=== PATIENT | male | born 1975 | race Caucasian/White ===

== ENCOUNTER 2018-12-10 05:08 | Inpatient (IN) | payer OTHER ==
[~2018-12-10] VITALS: Ht 170.2 cm; Wt 90.7 kg
[2018-12-10] MEDS ORDERED: GLIPIZIDE 10 MG PO (05:31)
[2018-12-10] MEDS ORDERED: ATORVASTATIN 40MG TAB (05:31)
[2018-12-10] MEDS ORDERED: SERTRALINE 50 MG PO (05:31)
[2018-12-10] MEDS ORDERED: METFORMIN 500 MG PO (05:31)
--- OUTSIDE RECORDS SUMMARY | 2018-12-10 05:34 | XMS REPORT ---
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 Name Role Phone Migration, Doctor Unavailable Unavailable PROBLEMS Type Condition ICD9-CM Code PVD75-QM Code Onset Dates Condition Status SNOMED Code Problem Seasonal allergic rhinitis, unspecified allergic rhinitis trigger J30.2 Active 550016747 Problem Moderate episode of recurrent major depressive disorder F33.1 Active 476760349 Problem Hyperlipemia E78.5 Active 07131730 Problem Type 2 diabetes mellitus with hyperglycemia E11.65 Active [id number] Problem Type 2 diabetes mellitus without complications E11.9 Active [id number] ALLERGIES No Information ENCOUNTERS Encounter Location Date Diagnosis [facility] [address] [facility] [address] Sep, Sinusitis acute J01.90 [facility] [id number] [place] [address] Apr, Acute non-recurrent maxillary sinusitis J01.00 and Acute nasopharyngitis J00 [facility] [id number] [place] [address] Mar, Type 2 diabetes mellitus without complications E11.9 ; Moderate episode of recurrent major depressive disorder F33.1 and Hyperlipemia E78.5 [facility] [id number] [place] [address] Mar, [facility] [id number] [place] [id number] Feb, [facility] [id number] [place] [address] Jan, [facility] [id number] [place] [address] Jan, Acute non-recurrent pansinusitis J01.40 [facility] [address] [address] Dec, Type 2 diabetes mellitus with hyperglycemia E11.65 [facility] [id number] [place] [address] Jul, Type 2 diabetes mellitus with hyperglycemia E11.65 [facility] [address] [address] Jun, Hyperlipemia E78.5 [facility] [address] [address] October, Strep throat J02.0 and Sore throat J02.9 [facility] [id number] [place] [phone] Aug, [facility] [id number] [place] [address] Jul, Seasonal allergic rhinitis, unspecified allergic rhinitis trigger J30.2 [place] [address] [address] Jun, Type 2 diabetes mellitus without complications E11.9 [place] [id number] [place] [address] May, Type 2 diabetes mellitus with hyperglycemia E11.65 and Hyperlipemia E78.5 [place] [address] [address] Mar, [facility] [address] [address] Mar, [facility] [id number] [place] [address] Feb, Type 2 diabetes mellitus without complications E11.9 [facility] [address] [address] Feb, [facility] [id number] [place] [address] October, Type 2 diabetes mellitus with hyperglycemia E11.65 [facility] [address] [address] Aug, Hyperlipemia E78.5 [facility] [id number] [place] [address] 10 Jul, 2015 Hyperlipemia E78.5 [facility] [id number] [place] [id number] 08 Jul, 2015 Type 2 diabetes mellitus with complication E11.8 and Carpal tunnel syndrome G56.00 [facility] [id number] [place] [address] Jul, [facility] [id number] [place] [address] Jul, [facility] [id number] [place] [address] Feb, [facility] [id number] [place] [address] Nov, [facility] [id number] [place] [address] October, Diabetes mellitus without mention of complication, type II or unspecified type, not stated as uncontrolled 250.00 and Proteinuria 791.0 [facility] [id number] [place] [address] Sep, [facility] [id number] [place] [address] Sep, [facility] [id number] [place] [address] Sep, [facility] [id number] [place] [address] Sep, [facility] [id number] [place] [address] Aug, [facility] [place] [facility] [address] [facility] [id number] [place] [address] Aug, [facility] [place] [facility] [address] [id number] [place] [address] Aug, [facility] [place] [facility] [address] [id number] [place] [address] Aug, [facility] [place] [facility] [address] [id number] [place] [address] Apr, [facility] [place] [facility] [address] [id number] [place] [address] Apr, [facility] [place] [facility] [address] [id number] [place] [address] Mar, [facility] [place] [facility] [address] [id number] [place] [address] Mar, [facility] [place] [facility] [address] [id number] [place] [address] Mar, [facility] [place] [facility] [address] [id number] [place] [address] Mar, [facility] [place] [facility] [address] [id number] [place] [address] Mar, [facility] [place] [facility] [address] [id number] [place] [address] Feb, [facility] [place] [facility] [address] [id number] [place] [address] Feb, 2013 [facility] [place] [facility] [address] [id number] [place] [address] Feb, [facility] [place] [facility] [address] [id number] [place] [address] Feb, [facility] [place] [facility] [address] [id number] [place] [address] Dec, [facility] [place] [facility] [address] [id number] [place] [address] Dec, [facility] [place] [facility] [address] [id number] [place] [address] Dec, [facility] [place] [facility] [address] [id number] [place] [address] Nov, [facility] [place] [facility] [address] [id number] [place] [address] Nov, [facility] [place] [facility] [address] [id number] [place] [address] October, [facility] [place] [facility] [address] [id number] [place] [address] October, [facility] [place] [facility] [address] [id number] [place] [address] Sep, [facility] [place] [facility] [address] [id number] [place] [address] Sep, [facility] [place] [facility] [address] [id number] [place] [address] Sep, [facility] [place] [facility] [address] [id number] [place] [address] Sep, [facility] [place] [facility] [address] [id number] [place] [address] Sep, [facility] [place] [facility] [address] [id number] [place] [address] Aug, [facility] [place] [facility] [address] [id number] [place] [address] Aug, [facility] [place] [facility] [address] [id number] [place] [address] Mar, [facility] [place] [facility] [address] [id number] [place] [address] Mar, [facility] [place] [facility] [address] [id number] [place] [address] Jan, [facility] [place] [facility] [address] [id number] [place] [address] Jan, [facility] [address] [id number] [place] [address] Dec, [facility] [place] [facility] [address] [id number] [place] [address] Dec, [facility] [address] [facility] [id number] [place] [address] Nov, [facility] [place] [facility] [address] [id number] [place] [address] Nov, [facility] [place] [facility] [address] [id number] [place] [address] Nov, [facility] [place] [facility] [address] [id number] [place] [address] Sep, [facility] [address] [id number] [place] [address] Sep, [facility] [place] [facility] [address] [id number] [place] [address] Aug, [facility] [place] [facility] [address] [id number] [place] [address] Aug, [facility] [place] [facility] [address] [facility] [id number] [place] [address] Aug, [facility] [place] [facility] [address] [facility] [id number] [place] [address] Jul, [facility] [place] [facility] [address] [facility] [id number] [place] [address] Jul, [facility] [place] [facility] [address] [id number] [place] [address] May, [facility] [place] [facility] [address] [facility] [id number] [place] [address] May, [facility] [place] [facility] [address] [facility] [id number] [place] [address] Apr, [facility] [place] [facility] [address] [id number] [place] [address] Apr, [facility] [place] [facility] [address] [id number] [place] [address] Mar, [facility] [place] [facility] [address] [id number] [place] [address] Mar, [facility] [place] [facility] [id number] [place] [address], [place] [address] Mar, [facility] [place] [facility] [address] [id number] [place] [address] Mar, [facility] [place] [facility] [address] [id number] [place] [address] Mar, [facility] [place] [facility] [address] [id number] [place] [address] Mar, [facility] [place] [facility] [address] [id number] [place] [address] Mar, [facility] [place] [facility] [address] [id number] [place] [address] Mar, [facility] [place] [facility] [address] [id number] [place] [address] Mar, [facility] [place] [facility] [address] [id number] [place] [address] Mar, [facility] [place] [facility] [address] [id number] [place] [address] Mar, [facility] [place] [facility] [address] [id number] [place] [address] Mar, [facility] [place] [facility] [address] [id number] [place] [address] Mar, [facility] [place] [facility] [address] [id number] [place] [address] 13 Feb, 2012 [facility] [place] [facility] [address] [id number] [place] [address] Feb, [facility] [address] [address] Feb, [facility] [address] [address] Jan, [facility] [address] [address] Jan, [facility] [address] [address] October, [facility] [address] [address] Sep, [facility] [id number] [place] [address] Sep, [facility] [address] [address] Aug, [facility] [address] [address] Jul, [facility] [address] [address] Jul, [facility] [address] [address] Jul, [facility] [address] [address] Jul, [facility] [id number] [address] Jun, [facility] [id number] [address] May, IMMUNIZATIONS No Known Immunizations SOCIAL HISTORY Never Assessed REASON FOR VISIT EMR-[facility] PLAN OF CARE VITAL SIGNS MEDICATIONS No Known Medications RESULTS No Results PROCEDURES No Known procedures INSTRUCTIONS MEDICATIONS ADMINISTERED No Known Medications MEDICAL (GENERAL) HISTORY Type Description Date Medical History Type II DM Medical History Eye exam 10/2014 No retinopathy Medical History diabetes Surgical History No know Surgical history
--- OUTSIDE RECORDS SUMMARY | 2018-12-10 05:34 | XMS REPORT ---
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 Name Role Phone Migration, Doctor Unavailable Unavailable PROBLEMS Type Condition ICD9-CM Code AAB61-PT Code Onset Dates Condition Status SNOMED Code Problem Seasonal allergic rhinitis, unspecified allergic rhinitis trigger J30.2 Active 688206848 Problem Moderate episode of recurrent major depressive disorder F33.1 Active 559609309 Problem Hyperlipemia E78.5 Active 09538829 Problem Type 2 diabetes mellitus with hyperglycemia E11.65 Active 904600696317780 Problem Type 2 diabetes mellitus without complications E11.9 Active [id number] ALLERGIES No Information ENCOUNTERS Encounter Location Date Diagnosis [facility] [address] [address] Sep, Sinusitis acute J01.90 [facility] [id number] [place] [address] Apr, Acute non-recurrent maxillary sinusitis J01.00 and Acute nasopharyngitis J00 [facility] [id number] [place] [address] Mar, Type 2 diabetes mellitus without complications E11.9 ; Moderate episode of recurrent major depressive disorder F33.1 and Hyperlipemia E78.5 [facility] [id number] [place] [address] Mar, [facility] [id number] [place] [address] Feb, [facility] [id number] [place] [address] Jan, [facility] [id number] [place] [address] Jan, Acute non-recurrent pansinusitis J01.40 [facility] [address], [place] [address] Dec, Type 2 diabetes mellitus with hyperglycemia E11.65 [facility] [id number] [place] [address] Jul, Type 2 diabetes mellitus with hyperglycemia E11.65 [facility] [address], [place] [address] Jun, Hyperlipemia E78.5 [facility] [address], [place] [address] October, Strep throat J02.0 and Sore throat J02.9 [facility] [id number] [place] [address] Aug, [facility] [id number] [place] [address] Jul, Seasonal allergic rhinitis, unspecified allergic rhinitis trigger J30.2 [facility] [address], [place] [address] Jun, Type 2 diabetes mellitus without complications E11.9 [facility] [id number] [place] [address] May, Type 2 diabetes mellitus with hyperglycemia E11.65 and Hyperlipemia E78.5 [facility] [address], [place] [address] Mar, [facility] [address], [place] [address] Mar, [facility] [id number] [place] [address] Feb, Type 2 diabetes mellitus without complications E11.9 [facility] [address], [place] [address] Feb, [facility] [id number] [place] [address] October, Type 2 diabetes mellitus with hyperglycemia E11.65 [facility] [address], [place] [address] Aug, Hyperlipemia E78.5 [facility] [id number] [place] [address] 10 Jul, 2015 Hyperlipemia E78.5 [facility] [id number] [place] [address] 08 Jul, 2015 Type 2 diabetes mellitus with complication E11.8 and Carpal tunnel syndrome G56.00 [facility] [id number] [place] [address] Jul, [facility] [id number] [place] [address] Jul, [facility] [id number] [place] [address] Feb, [facility] [id number] [place] [address] Nov, [facility] [id number] [place] [address] October, Diabetes mellitus without mention of complication, type II or unspecified type, not stated as uncontrolled 250.00 and Proteinuria 791.0 [facility] [id number] [place] [address] Sep, [facility] [id number] [place] [address] Sep, [facility] [id number] [place] [address] Sep, [facility] [id number] [place] [address] Sep, [facility] [id number] [place] [address] Aug, [facility] [place] [facility] [address] [facility] [id number] [place] [address] Aug, [facility] [place] [facility] [address] [id number] [place] [address] Aug, [facility] [place] [facility] [address] [id number] [place] [address] Aug, [facility] [place] [facility] [address] [id number] [place] [address] Apr, [facility] [place] [facility] [address] [id number] [place] [address] Apr, [facility] [place] [facility] [address] [id number] [place] [address] Mar, [facility] [place] [facility] [address] [id number] [place] [address] Mar, [facility] [place] [facility] [address] [id number] [place] [address] Mar, [facility] [place] [facility] [address] [id number] [place] [address] Mar, [facility] [place] [facility] [address] [id number] [place] [address] Mar, [facility] [place] [facility] [address] [id number] [place] [address] Feb, [facility] [place] [facility] [address] [id number] [place] [address] Feb, 2013 [facility] [place] [facility] [address] [id number] [place] [address] Feb, [facility] [place] [facility] [address] [id number] [place] [address] Feb, [facility] [place] [facility] [address] [id number] [place] [address] Dec, [facility] [place] [facility] [address] [id number] [place] [address] Dec, [facility] [place] [facility] [address] [id number] [place] [address] Dec, [facility] [place] [facility] [address] [id number] [place] [address] Nov, [facility] [place] [facility] [address] [id number] [place] [address] Nov, [facility] [place] [facility] [address] [id number] [place] [address] October, [facility] [place] [facility] [address] [id number] [place] [address] October, [facility] [place] [facility] [address] [id number] [place] [address] Sep, [facility] [place] [facility] [address] [id number] [place] [address] Sep, [facility] [place] [facility] [address] [id number] [place] [address] Sep, [facility] [place] [facility] [address] [id number] [place] [address] Sep, [facility] [place] [facility] [address] [id number] [place] [address] Sep, [facility] [place] [facility] [address] [id number] [place] [address] Aug, [facility] [place] [facility] [address] [id number] [place] [address] Aug, [facility] [place] [facility] [address] [id number] [place] [address] Mar, [facility] [place] [facility] [address] [id number] [place] [address] Mar, [facility] [place] [facility] [address] [id number] [place] [address] Jan, [facility] [place] [facility] [address] [id number] [place] [address] Jan, [facility] [address] [id number] [place] [address] Dec, [facility] [place] [facility] [address] [id number] [place] [address] Dec, [facility] [address] [facility] [id number] [place] [address] Nov, [facility] [place] [facility] [address] [id number] [place] [address] Nov, [facility] [place] [facility] [address] [id number] [place] [address] Nov, [facility] [place] [facility] [address] [id number] [place] [address] Sep, [facility] [address] [id number] [place] [address] Sep, [facility] [place] [facility] [address] [id number] [place] [address] Aug, [facility] [place] [facility] [address] [id number] [place] [address] Aug, [facility] [place] [facility] [address] [facility] [id number] [place] [address] Aug, [facility] [place] [facility] [address] [facility] [id number] [place] [address] Jul, [facility] [place] [facility] [address] [facility] [id number] [place] [address] Jul, [facility] [place] [facility] [address] [id number] [place] [address] May, [facility] [place] [facility] [address] [facility] [id number] [place] [address] May, [facility] [place] [facility] [address] [facility] [id number] [place] [address] Apr, [facility] [place] [facility] [address] [id number] [place] [address] Apr, [facility] [place] [facility] [address] [id number] [place] [address] Mar, [facility] [place] [facility] [address] [id number] [place] [address] Mar, [facility] [place] [facility] [id number] [place] [address], [place] [address] Mar, [facility] [place] [facility] [address] [id number] [place] [address] Mar, [facility] [place] [facility] [address] [id number] [place] [address] Mar, [facility] [place] [facility] [address] [id number] [place] [address] Mar, [facility] [place] [facility] [address] [id number] [place] [address] Mar, [facility] [place] [facility] [address] [id number] [place] [address] Mar, [facility] [place] [facility] [address] [id number] [place] [address] Mar, [facility] [place] [facility] [address] [id number] [place] [address] Mar, [facility] [place] [facility] [address] [id number], [place] [address] Mar, [facility] [place] [facility] [address] [id number] [place] [address] Mar, [facility] [place] [facility] [address] [id number] [place] [address] Mar, [facility] [place] [facility] [address] [id number], [place] [address] 13 Feb, 2012 [facility] [place] [facility] [id number] [place] [address] Feb, [facility] [id number] [address] Feb, [facility] [address], [place] [address] Jan, [facility] [address], [place] [address] Jan, [facility] [address], [place] [address] October, [facility] [address], [place] [address] Sep, [facility] [address], [place] [address] Sep, [facility] [address], [place] [address] Aug, [facility] [address], [place] [address] Jul, [facility] [address], [place] [address] Jul, [facility] [address], [place] [address] Jul, [facility] [address], [place] [address] Jul, [facility] [id number] [address] Jun, [facility] [id number] [address] May, IMMUNIZATIONS No Known Immunizations SOCIAL HISTORY Never Assessed REASON FOR VISIT EMR[place] [place] CARE VITAL SIGNS MEDICATIONS Medication Instructions Dosage Frequency Start Date End Date Duration Status Lovastatin 40 mg take 1 tablet (40 mg) by oral route once daily with the evening meal Nov, Active Invokana 100 mg take 1 tablet by Oral route before the first meal of the day 1 time per day repository Mar, Active Lamisil 250 mg 1 tablet by Oral route 1 time per day for 30 day(s) Jun, Active Zithromax Z-Kelton 250 mg 2 tablet by Oral route 1 time per day for 1 days then take 1 tab daily on days 2-5 Sep, Active PredniSONE 20 mg 1 tablet by Oral route 2 times per day for 5 day(s) Sep, Active RESULTS No Results PROCEDURES No Known procedures INSTRUCTIONS MEDICATIONS ADMINISTERED No Known Medications MEDICAL (GENERAL) HISTORY Type Description Date Medical History Type II DM Medical History Eye exam 10/2014 No retinopathy Medical History diabetes Surgical History No know Surgical history
--- OUTSIDE RECORDS SUMMARY | 2018-12-10 05:34 | XMS REPORT ---
Author Author Migration, Doctor Organization [facility] Address Unknown Phone Unavailable Care Team Providers [employer] Janitor Name Role Phone Migration, Doctor Unavailable Unavailable PROBLEMS Type Condition ICD9-CM Code HVQ84-QH Code Onset Dates Condition Status SNOMED Code Problem Seasonal allergic rhinitis, unspecified allergic rhinitis trigger J30.2 Active 745622864 Problem Moderate episode of recurrent major depressive disorder F33.1 Active 469198048 Problem Hyperlipemia E78.5 Active 65536477 Problem Type 2 diabetes mellitus with hyperglycemia E11.65 Active [id number] Problem Type 2 diabetes mellitus without complications E11.9 Active [id number] ALLERGIES No Information ENCOUNTERS Encounter Location Date Diagnosis [facility] [address] [address] Apr, Acute non-recurrent maxillary sinusitis J01.00 and Acute nasopharyngitis J00 [facility] [address] [address] Mar, Type 2 diabetes mellitus without complications E11.9 ; Moderate episode of recurrent major depressive disorder F33.1 and Hyperlipemia E78.5 [facility] [id number] [place] [address] Mar, [facility] [address] [address] Feb, [facility] [id number] [place] [address] Jan, [facility] [address] [address] Jan, Acute non-recurrent pansinusitis J01.40 [facility] [id number] [place] [address] Dec, Type 2 diabetes mellitus with hyperglycemia E11.65 [facility] [address] [address] Jul, Type 2 diabetes mellitus with hyperglycemia E11.65 [facility] [id number] [place] [address] Jun, Hyperlipemia E78.5 [facility] [id number] [place] [address] October, Strep throat J02.0 and Sore throat J02.9 [facility] [id number] [place] [address] Aug, [facility] [id number] [place] [address] Jul, Seasonal allergic rhinitis, unspecified allergic rhinitis trigger J30.2 [place] [id number] [place] [address] Jun, Type 2 diabetes mellitus without complications E11.9 [facility] [id number] [place] [address] May, Type 2 diabetes mellitus with hyperglycemia E11.65 and Hyperlipemia E78.5 [facility] [id number] [place] [address] Mar, [facility] [id number] [place] [address] Mar, [facility] [id number] [place] [address] Feb, Type 2 diabetes mellitus without complications E11.9 [place] [id number] [place] [address] Feb, [facility] [id number] [place] [address] October, Type 2 diabetes mellitus with hyperglycemia E11.65 [facility] [id number] [place] [address] 16 Aug, 2015 Hyperlipemia E78.5 [facility] [id number] [place] [address] 10 Jul, 2015 Hyperlipemia E78.5 [facility] [id number] [place] [address] 08 Jul, 2015 Type 2 diabetes mellitus with complication E11.8 and Carpal tunnel syndrome G56.00 [facility] [id number] [place] [address] Jul, [facility] [id number] [place] [address] Jul, [facility] [id number] [place] [address] Feb, [facility] [id number] [place] [address] Nov, [facility] [id number] [place] [address] October, Diabetes mellitus without mention of complication, type II or unspecified type, not stated as uncontrolled 250.00 and Proteinuria 791.0 [facility] [address] [address] Sep, [facility] [address] [address] Sep, [facility] [id number] [place] [address] Sep, [facility] [address] [address] Sep, [facility] [id number] [place] [address] Aug, [facility] [address] [address] Aug, [facility] [id number] [address] Aug, [facility] [place] [facility] [address] [id number] [place] [address] Aug, [facility] [place] [facility] [address] [id number] [place] [address] Apr, [facility] [place] [facility] [address] [id number] [place] [address] Apr, [facility] [place] [facility] [address] [id number] [place] [address] Mar, [facility] [place] [facility] [address] [id number] [place] [address] Mar, [facility] [place] [facility] [address] [id number] [place] [address] Mar, [facility] [place] [facility] [address] [id number] [place] [address] Mar, [facility] [place] [facility] [address] [id number] [place] [address] Mar, [facility] [place] [facility] [address] [id number] [place] [address] Feb, [facility] [place] [facility] [address] [id number] [place] [address] Feb, [facility] [place] [facility] [address] [id number] [place] [address] Feb, [facility] [place] [facility] [address] [id number] [place] [address] Feb, [facility] [place] [facility] [address] [id number] [place] [address] Dec, [facility] [place] [facility] [address] [id number] [place] [address] Dec, [facility] [place] [facility] [address] [id number] [place] [address] Dec, [facility] [place] [facility] [address] [id number] [place] [address] Nov, [facility] [place] [facility] [address] [id number] [place] [address] Nov, [facility] [place] [facility] [address] [id number] [place] [address] October, [facility] [place] [facility] [address] [id number] [place] [address] October, [facility] [place] [facility] [address] [id number] [place] [address] Sep, [facility] [place] [facility] [address] [id number] [place] [address] Sep, [facility] [place] [facility] [address] [id number] [place] [address] Sep, [facility] [place] [facility] [address] [id number] [place] [address] Sep, [facility] [place] [facility] [address] [id number] [place] [address] Sep, [facility] [place] [facility] [address] [id number] [place] [address] Aug, [facility] [place] [facility] [address] [id number] [place] [address] Aug, [facility] [place] [facility] [address] [id number] [address] Mar, [facility] [place] [facility] [address] [id number] [place] [address] Mar, [facility] [place] [facility] [address] [id number] [place] [address] Jan, [facility] [place] [facility] [address] [id number] [address] Jan, [facility] [place] [facility] [address] [id number], [place] [address] Dec, [facility] [address] [id number] [place] [address] Dec, [facility] [address] [id number] [place] [address] Nov, [facility] [address] [id number] [place] [address] Nov, [facility] [address] [id number] [place] [address] Nov, [facility] [address] [id number] [place] [address] Sep, [facility] [address] [id number] [place] [address] Sep, [facility] [address] [id number] [place] [address] Aug, [facility] [address] [id number] [place] [address] Aug, [facility] [address] [id number] [place] [address] Aug, [facility] [address] [id number] [place] [address] Jul, [facility] [address] [id number] [place] [address] Jul, [facility] [place] [facility] [address] [id number] [place] [address] May, [facility] [place] [facility] [address] [id number] [place] [address] May, [facility] [place] [facility] [address] [id number] [place] [address] Apr, [facility] [address] [id number] [place] [address] Apr, [facility] [place] [facility] [address] [id number] [place] [address] Mar, 2011 [facility] [place] [facility] [address] [id number] [place] [address] Mar, 2011 [facility] [place] [facility] [address] [id number] [place] [address] Mar, 2011 [facility] [place] [facility] [address] [id number] [place] [address] Mar, [facility] [place] [facility] [address] [id number] [place] [address] Mar, 2011 [facility] [place] [facility] [address] [id number] [place] [address] Mar, [facility] [place] [facility] [address] [id number] [place] [address] Mar, [facility] [place] [facility] [address] [id number] [place] [address] Mar, [facility] [place] [facility] [address] [id number] [place] [address] Mar, [facility] [place] [facility] [address] [id number] [place] [address] Mar, [facility] [place] [facility] [address] [id number] [place] [address] Mar, [facility] [place] [facility] [address] [id number] [place] [address] Mar, [facility] [place] [facility] [address] [id number] [place] [address] 15 Mar, 2012 [facility] [place] [facility] [address] [id number] [place] [address] 13 Feb, 2012 [facility] [place] [facility] [address] [id number] [place] [address] 06 Sep, 2011 [facility] [place] [facility] [address] [id number] [place] [address] Feb, [facility] [id number] [address] Jan, [facility] [address] [place] [address] Jan, [facility] [address] [place] [address] October, [facility] [address] [place] [address] Sep, [facility] [address] [place] [address] Sep, [facility] [address] [place] [address] Aug, [facility] [address] [place] [address] Jul, [facility] [address] [place] [address] Jul, [facility] [address] [place] [address] Jul, [facility] [address] [place] [address] Jul, [facility] [address] [place] [address] Jun, [facility] [address] [place] [address] May, IMMUNIZATIONS No Known Immunizations SOCIAL HISTORY Never Assessed REASON FOR VISIT EMR-[facility] PLAN OF CARE VITAL SIGNS MEDICATIONS No Known Medications RESULTS No Results PROCEDURES No Known procedures INSTRUCTIONS MEDICATIONS ADMINISTERED No Known Medications MEDICAL (GENERAL) HISTORY Type Description Date Medical History Type II DM Medical History Eye exam 10/2014 No retinopathy Medical History diabetes Surgical History No know Surgical history
--- OUTSIDE RECORDS SUMMARY | 2018-12-10 05:34 | XMS REPORT ---
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 Name Role Phone Migration, Doctor Unavailable Unavailable PROBLEMS Type Condition ICD9-CM Code [id number] Code Onset Dates Condition Status SNOMED Code Problem Seasonal allergic rhinitis, unspecified allergic rhinitis trigger J30.2 Active 119708751 Problem Moderate episode of recurrent major depressive disorder F33.1 Active 361071780 Problem Hyperlipemia E78.5 Active 41508154 Problem Type 2 diabetes mellitus with hyperglycemia E11.65 Active [id number] Problem Type 2 diabetes mellitus without complications E11.9 Active 140055138 ALLERGIES No Information ENCOUNTERS Encounter Location Date Diagnosis [facility] WALK IN [facility] [address] [place] [address] Sep, Sinusitis acute J01.90 [facility] WALK IN [facility] [id number] [place] [address] Apr, Acute non-recurrent maxillary sinusitis J01.00 and Acute nasopharyngitis J00 [facility] [id number] [place] [address] Mar, Type 2 diabetes mellitus without complications E11.9 ; Moderate episode of recurrent major depressive disorder F33.1 and Hyperlipemia E78.5 [facility] [id number] [place] [address] Mar, [facility] [id number] [place] [address] Feb, [facility] [id number] [place] [address] Jan, [facility] IN [facility] [id number] [place] [address] Jan, Acute non-recurrent pansinusitis J01.40 [facility] [address] [address] Dec, Type 2 diabetes mellitus with hyperglycemia E11.65 [facility] [id number] [place] [address] Jul, Type 2 diabetes mellitus with hyperglycemia E11.65 [facility] [address] [address] Jun, Hyperlipemia E78.5 [facility] [id number], [place] [address] October, Strep throat J02.0 and Sore throat J02.9 [facility] [id number] [place] [address] Aug, [facility] WALK IN [facility] [id number] [place] [address] Jul, Seasonal allergic rhinitis, unspecified allergic rhinitis trigger J30.2 [facility] [facility] [id number] [address] Jun, Type 2 diabetes mellitus without complications E11.9 [facility] [id number] [place] [address] May, Type 2 diabetes mellitus with hyperglycemia E11.65 and Hyperlipemia E78.5 [facility] [address] [address] Mar, [facility] [address] [address] Mar, [facility] [id number] [place] [address] Feb, Type 2 diabetes mellitus without complications E11.9 [facility] [address] [address] Feb, [facility] [id number] [place] [address] October, Type 2 diabetes mellitus with hyperglycemia E11.65 [facility] [address] [address] Aug, Hyperlipemia E78.5 [facility] [id number] [place] [address] 10 Jul, 2015 Hyperlipemia E78.5 [facility] [id number] [place] [address] 08 Jul, 2015 Type 2 diabetes mellitus with complication E11.8 and Carpal tunnel syndrome G56.00 [facility] [id number] [place] [address] Jul, [facility] [id number] [place] [address] Jul, [facility] [id number] [place] [address] Feb, [facility] [id number] [place] [address] Nov, [facility] [id number] [place] [address] October, Diabetes mellitus without mention of complication, type II or unspecified type, not stated as uncontrolled 250.00 and Proteinuria 791.0 [facility] [id number] [place] [address] Sep, [facility] [id number] [place] [address] Sep, [facility] [id number] [place] [address] Sep, [facility] [id number] [place] [address] Sep, [facility] [id number] [place] [address] Aug, [facility] [place] [facility] [address] [facility] [id number] [place] [address] Aug, [facility] [place] [facility] [address] [id number] [place] [address] Aug, [facility] [place] [facility] [address] [id number] [place] [address] Aug, [facility] [place] [facility] [address] [id number] [place] [address] Apr, [facility] [place] [facility] [address] [id number] [place] [address] Apr, [facility] [place] [facility] [address] [id number] [place] [address] Mar, [facility] [place] [facility] [address] [id number] [place] [address] Mar, [facility] [place] [facility] [address] [id number] [place] [address] Mar, [facility] [place] [facility] [address] [id number] [place] [address] Mar, [facility] [place] [facility] [address] [id number] [place] [address] Mar, [facility] [place] [facility] [address] [id number] [place] [address] Feb, [facility] [place] [facility] [address] [id number] [place] [address] Feb, 2013 [facility] [place] [facility] [address] [id number] [place] [address] Feb, [facility] [place] [facility] [address] [id number] [place] [address] Feb, [facility] [place] [facility] [address] [id number] [place] [address] Dec, [facility] [place] [facility] [address] [id number] [place] [address] Dec, [facility] [place] [facility] [address] [id number] [place] [address] Dec, [facility] [place] [facility] [address] [id number] [place] [address] Nov, [facility] [place] [facility] [address] [id number] [place] [address] Nov, [facility] [place] [facility] [address] [id number] [place] [address] October, [facility] [place] [facility] [address] [id number] [place] [address] October, [facility] [place] [facility] [address] [id number] [place] [address] Sep, [facility] [place] [facility] [address] [id number] [place] [address] Sep, [facility] [place] [facility] [address] [id number] [place] [address] Sep, [facility] [place] [facility] [address] [id number] [place] [address] Sep, [facility] [place] [facility] [address] [id number] [place] [address] Sep, [facility] [place] [facility] [address] [id number] [place] [address] Aug, [facility] [place] [facility] [address] [id number] [place] [address] Aug, [facility] [place] [facility] [address] [id number] [place] [address] Mar, [facility] [place] [facility] [address] [id number] [place] [address] Mar, [facility] [place] [facility] [address] [id number] [place] [address] Jan, [facility] [place] [facility] [address] [id number] [place] [address] Jan, [facility] [address] [id number] [place] [address] Dec, [facility] [place] [facility] [address] [id number] [place] [address] Dec, [facility] [address] [facility] [id number] [place] [address] Nov, [facility] [place] [facility] [address] [id number] [place] [address] Nov, [facility] [place] [facility] [address] [id number] [place] [address] Nov, [facility] [place] [facility] [address] [id number] [place] [address] Sep, [facility] [address] [id number] [place] [address] Sep, [facility] [place] [facility] [address] [id number] [place] [address] Aug, [facility] [place] [facility] [address] [id number] [place] [address] Aug, [facility] [place] [facility] [address] [facility] [id number] [place] [address] Aug, [facility] [place] [facility] [address] [facility] [id number] [place] [address] Jul, [facility] [place] [facility] [address] [facility] [id number] [place] [address] Jul, [facility] [place] [facility] [address] [id number] [place] [address] May, [facility] [place] [facility] [address] [facility] [id number] [place] [address] May, [facility] [place] [facility] [address] [facility] [id number] [place] [address] Apr, [facility] [place] [facility] [address] [id number] [place] [address] Apr, [facility] [place] [facility] [address] [id number] [place] [address] Mar, [facility] [place] [facility] [address] [id number] [place] [address] Mar, [facility] [place] [facility] [address] [id number] [place] [address], [place] [address] Mar, [facility] [place] [facility] [address] [id number] [place] [address] Mar, [facility] [place] [facility] [address] [id number] [place] [address] Mar, [facility] [place] [facility] [address] [id number] [place] [address] Mar, [facility] [place] [facility] [address] [id number] [place] [address] Mar, [facility] [place] [facility] [address] [id number] [place] [address] Mar, [facility] [place] [facility] [address] [id number] [place] [address] Mar, [facility] [place] [facility] [address] [id number] [place] [address] Mar, [facility] [place] [facility] [address] [id number] [address] Mar, [facility] [place] [facility] [address] [id number] [place] [address] Mar, [facility] [place] [facility] [address] [id number] [place] [address] Mar, [facility] [place] [facility] [address] [id number], [place] [address] 13 Feb, 2012 [facility] [place] [facility] [address] [id number] [place] [address] Feb, [facility] [address], [place] [address] Feb, [facility] [address], [place] [address] Jan, [facility] [address], [place] [address] Jan, [facility] [address], [place] [address] October, [facility] [address], [place] [address] Sep, [facility] [id number] [place] [address] Sep, [facility] [address], [place] [address] Aug, [facility] [address], [place] [address] Jul, [facility] [address], [place] [address] Jul, [facility] [address], [place] [address] Jul, [facility] [address] [place] [address] Jul, [facility] [id number] [address] Jun, [facility] [id number] [address] May, IMMUNIZATIONS No Known Immunizations SOCIAL HISTORY Never Assessed [place]AS[place] [place] VITAL SIGNS MEDICATIONS No Known Medications RESULTS No Results PROCEDURES No Known procedures INSTRUCTIONS MEDICATIONS ADMINISTERED No Known Medications MEDICAL (GENERAL) HISTORY Type Description Date Medical History Type II DM Medical History Eye exam 10/2014 No retinopathy Medical History diabetes Surgical History No know Surgical history
--- OUTSIDE RECORDS SUMMARY | 2018-12-10 05:35 | XMS REPORT ---
Author Author MATT CALERO Organization [facility] Address [address] [place] [address] Care Team Providers Care Pocket Setter Name Role Phone MATT CALERO Unavailable PROBLEMS Type Condition ICD9-CM Code XHD28-NX Code Onset Dates Condition Status SNOMED Code Problem Moderate episode of recurrent major depressive disorder F33.1 Active 870245028 Problem Seasonal allergic rhinitis, unspecified allergic rhinitis trigger J30.2 Active 295383439 Problem Hyperlipemia E78.5 Active 24342391 Problem Type 2 diabetes mellitus without complications E11.9 Active 675662268 Problem Type 2 diabetes mellitus with hyperglycemia E11.65 Active [id number] ALLERGIES No Known Allergies ENCOUNTERS Encounter Location Date Diagnosis [facility] [id number] [place] [address] Apr, Acute non-recurrent maxillary sinusitis J01.00 and Acute nasopharyngitis J00 [facility] [address] [address] Mar, Type 2 diabetes mellitus without complications E11.9 ; Moderate episode of recurrent major depressive disorder F33.[address] [facility] [id number] [place] [address] Mar, [facility] [address] [address] Feb, [place] [address] [address] Jan, [facility] [address] [address] Jan, Acute non-recurrent pansinusitis J01.40 [facility] [address] [address] Dec, Type 2 diabetes mellitus with hyperglycemia E11.65 [facility] [address] [place] [address] Jul, Type 2 diabetes mellitus with hyperglycemia E11.65 [facility] [address] [address] Jun, Hyperlipemia E78.5 [facility] [address], [place] [address] October, Strep throat J02.0 and Sore throat J02.9 [place] [id number] [place] [address] Aug, [facility] [id number] [place] [address] Jul, Seasonal allergic rhinitis, unspecified allergic rhinitis trigger J30.2 [place] [address], [place] [address] Jun, Type 2 diabetes mellitus without complications E11.9 [place] [id number] [place] [address] May, Type 2 diabetes mellitus with hyperglycemia E11.65 and Hyperlipemia E78.5 [place] [address], [place] [address] Mar, [facility] [address], [place] [address] Mar, [facility] [address] [place] [address] Feb, Type 2 diabetes mellitus without complications E11.9 [facility] [address], [place] [address] Feb, [facility] [address] [place] [address] October, Type 2 diabetes mellitus with hyperglycemia E11.65 [facility] [address], [place] [address] Aug, Hyperlipemia E78.5 [facility] [id number] [place] [address] 10 Jul, [address] [facility] [id number] [place] [address] 08 Jul, 2015 Type 2 diabetes mellitus with complication E11.8 and Carpal tunnel syndrome G56.00 [facility] [id number] [place] [address] Jul, [facility] [id number] [place] [address] Jul, [facility] [id number] [place] [address] Feb, [facility] [id number] [place] [address] Nov, [facility] [id number] [place] [address] October, Diabetes mellitus without mention of complication, type II or unspecified type, not stated as uncontrolled 250.[address] [facility] [address] [place] [address] Sep, [facility] [id number] [place] [address] Sep, [facility] [address] [place] [address] Sep, [facility] [id number] [place] [address] Sep, [facility] [address] [place] [address] Aug, [facility] [place] [facility] [address] [facility] [id number] [place] [address] Aug, [facility] [place] [facility] [address] [id number] [place] [address] Aug, [facility] [place] [facility] [address] [id number] [place] [address] Aug, [facility] [place] [facility] [address] [id number] [place] [address] Apr, [facility] [place] [facility] [address] [id number] [place] [address] Apr, [facility] [place] [facility] [address] [id number] [place] [address] Mar, [facility] [place] [facility] [address] [id number] [place] [address] Mar, [facility] [place] [facility] [address] [id number] [place] [address] Mar, [facility] [place] [facility] [address] [id number] [place] [address] Mar, [facility] [place] [facility] [address] [id number] [place] [address] Mar, [facility] [place] [facility] [address] [id number] [place] [address] Feb, [facility] [place] [facility] [address] [id number] [place] [address] Feb, 2013 [facility] [place] [facility] [address] [id number] [place] [address] Feb, [facility] [place] [facility] [address] [id number] [place] [address] Feb, [facility] [place] [facility] [address] [id number] [place] [address] Dec, [facility] [place] [facility] [address] [id number] [place] [address] Dec, [facility] [place] [facility] [address] [id number] [place] [address] Dec, [facility] [place] [facility] [address] [id number] [place] [address] Nov, [facility] [place] [facility] [address] [id number] [place] [address] Nov, [facility] [place] [facility] [address] [id number] [place] [address] October, [facility] [place] [facility] [address] [id number] [place] [address] October, [facility] [place] [facility] [address] [id number] [place] [address] Sep, [facility] [place] [facility] [address] [id number] [place] [address] Sep, [facility] [place] [facility] [address] [id number] [place] [address] Sep, [facility] [place] [facility] [address] [id number] [place] [address] Sep, [facility] [place] [facility] [address] [id number] [place] [address] Sep, [facility] [place] [facility] [address] [id number] [place] [address] Aug, [facility] [place] [facility] [address] [id number] [place] [address] Aug, [facility] [place] [facility] [address] [id number] [place] [address] Mar, [facility] [place] [facility] [address] [id number] [place] [address] Mar, [facility] [place] [facility] [address] [id number] [place] [address] Jan, [facility] [place] [facility] [address] [id number] [place] [address] Jan, [facility] [address] [id number] [place] [address] Dec, [facility] [place] [facility] [address] [id number] [place] [address] Dec, [facility] [address] [facility] [id number] [place] [address] Nov, [facility] [place] [facility] [address] [id number] [place] [address] Nov, [facility] [place] [facility] [address] [id number] [place] [address] Nov, [facility] [place] [facility] [address] [id number] [place] [address] Sep, [facility] [address] [id number] [place] [address] Sep, [facility] [place] [facility] [address] [id number] [place] [address] Aug, [facility] [place] [facility] [address] [id number] [place] [address] Aug, [facility] [place] [facility] [address] [facility] [id number] [place] [address] Aug, [facility] [place] [facility] [address] [facility] [id number] [place] [address] Jul, [facility] [place] [facility] [address] [facility] [id number] [place] [address] Jul, [facility] [place] [facility] [address] [id number] [place] [address] May, [facility] [place] [facility] [address] [facility] [id number] [place] [address] May, [facility] [place] [facility] [address] [facility] [id number] [place] [address] Apr, [facility] [place] [facility] [address] [id number] [place] [address] Apr, [facility] [place] [facility] [address] [id number] [place] [address] Mar, [facility] [place] [facility] [address] [id number] [place] [address] Mar, [facility] [place] [facility] [id number] [place] [address], [place] [address] Mar, [facility] [place] [facility] [address] [id number] [place] [address] Mar, [facility] [place] [facility] [address] [id number] [place] [address] Mar, [facility] [place] [facility] [address] [id number] [place] [address] Mar, [facility] [place] [facility] [address] [id number] [place] [address] Mar, [facility] [place] [facility] [address] [id number] [place] [address] Mar, [facility] [place] [facility] [address] [id number] [place] [address] Mar, [facility] [place] [facility] [address] [id number] [place] [address] Mar, [facility] [place] [facility] [address] [id number], [place] [address] Mar, [facility] [place] [facility] [address] [id number] [place] [address] Mar, [facility] [place] [facility] [address] [id number] [place] [address] Mar, [facility] [place] [facility] [address] [id number], [place] [address] 13 Feb, 2012 [facility] [place] [facility] [id number] [place] [address] Feb, [facility] [address] [address] Feb, [facility] [address] [address] Jan, [facility] [address] [address] Jan, [facility] [id number] [place] [address] October, [facility] [id number] [place] [address] Sep, [facility] [id number] [place] [address] Sep, [facility] [address], [place] [address] Aug, [facility] [address] [place] [address] Jul, [facility] [address], [place] [address] Jul, [facility] [address], [place] [address] Jul, [facility] [address], [place] [address] Jul, [facility] [id number] [address] Jun, [facility] [id number], [place] [address] May, IMMUNIZATIONS No Known Immunizations SOCIAL HISTORY Never Assessed REASON FOR VISIT cough, congestion, headache. been sick for 5 days. [email or web address] PLAN OF CARE Activity Details Follow Up prn Reason: VITAL SIGNS Height 67 in 2018-05-05 Weight 201.4 lbs 2018-05-05 Temperature 98.3 degrees Fahrenheit 2018-05-05 Heart Rate 92 bpm 2018-05-05 Respiratory Rate 20 2018-05-05 BMI 31.54 kg/m2 2018-05-05 Blood pressure systolic 116 mmHg 2018-05-05 Blood pressure diastolic 74 mmHg 2018-05-05 MEDICATIONS Medication Instructions Dosage Frequency Start Date End Date Duration Status Augmentin 875-125 MG Orally every 12 hrs 1 tablet 12h 15 Apr, 2018 14 days Active Tessalon Perles 100 MG Orally Three times a day 1 capsule as needed 8h 15 Apr, 2018 5 days Active Sertraline HCl 50 mg Orally Once a day 1 tablet 24h 25 Mar, 2018 30 day(s) Active Diflucan 200 MG Orally every 72 hours 1 tablet Apr, 3 days Active Atorvastatin Calcium 10 mg Orally Once a day 1 tablet 24h 30 days Active Metformin HCl 500 mg Orally Twice a day 1 tablet with meals 12h 30 days Active GlipiZIDE 10 mg Orally Once a day 1 tablet 24h 30 Active RESULTS No Results PROCEDURES No Known procedures INSTRUCTIONS MEDICATIONS ADMINISTERED No Known Medications MEDICAL (GENERAL) HISTORY Type Description Date Medical History Type II DM Medical History Eye exam 10/2014 No retinopathy Medical History diabetes Surgical History No know Surgical history
--- OUTSIDE RECORDS SUMMARY | 2018-12-10 05:35 | XMS REPORT ---
Author Author RUPERTO RAHMAN Organization [facility] Address [address] [place] [address] Care Team Providers Care Veneer Puller Name Role Phone RUPERTO RAHMAN Unavailable PROBLEMS Type Condition ICD9-CM Code FOD33-LN Code Onset Dates Condition Status SNOMED Code Problem Moderate episode of recurrent major depressive disorder F33.1 Active 204797060 Problem Seasonal allergic rhinitis, unspecified allergic rhinitis trigger J30.2 Active 397639051 Problem Hyperlipemia E78.5 Active 76507841 Problem Type 2 diabetes mellitus without complications E11.9 Active 768465947 Problem Type 2 diabetes mellitus with hyperglycemia E11.65 Active [id number] ALLERGIES No Known Allergies ENCOUNTERS Encounter Location Date Diagnosis [facility] [address] [address] Mar, Type 2 diabetes mellitus without complications E11.9 ; Moderate episode of recurrent major depressive disorder F33.[address] [facility] [id number] [place] [address] Mar, [facility] [id number] [place] [address] Feb, [facility] [address] [address] Jan, [facility] [id number] [place] [address] Jan, Acute non-recurrent pansinusitis J01.40 [facility] [id number] [place] [address] Dec, Type 2 diabetes mellitus with hyperglycemia E11.65 [facility] [address] [address] Jul, Type 2 diabetes mellitus with hyperglycemia E11.65 [facility] [address] [place] [address] Jun, Hyperlipemia E78.5 [facility] [address] [place] [address] October, Strep throat J02.0 and Sore throat J02.9 [facility] [id number] [place] [address] Aug, [facility] [id number] [place] [address] Jul, Seasonal allergic rhinitis, unspecified allergic rhinitis trigger J30.2 [facility] [address] [place] [address] Jun, Type 2 diabetes mellitus without complications E11.9 [facility] [id number] [place] [address] May, Type 2 diabetes mellitus with hyperglycemia E11.[address] [facility] [id number] [place] [address] Mar, [facility] [address] [place] [address] Mar, [facility] [id number] [place] [address] Feb, Type 2 diabetes mellitus without complications E11.9 [facility] [address] [place] [address] Feb, [facility] [id number] [place] [address] October, Type 2 diabetes mellitus with hyperglycemia E11.65 [facility] [address] [place] [address] Aug, Hyperlipemia E78.5 [facility] [id number] [place] [address] 10 Jul, [address] [facility] [address] [address] 08 Jul, 2015 Type 2 diabetes mellitus with complication E11.8 and Carpal tunnel syndrome G56.00 [facility] [id number] [place] [address] Jul, [facility] [id number] [place] [address] Jul, [facility] [address] [address] Feb, [facility] [id number] [place] [address] Nov, [facility] [id number] [place] [address] October, Diabetes mellitus without mention of complication, type II or unspecified type, not stated as uncontrolled 250.[address] [facility] [id number] [place] [address] Sep, [facility] [id number] [place] [address] Sep, [facility] [id number] [place] [address] Sep, [facility] [id number] [place] [address] Sep, [facility] [id number] [place] [address] Aug, [facility] [id number] [place] [address] Aug, [facility] [id number] [place] [address] Aug, [facility] [place] [facility] [address] [id number] [place] [address] Aug, [facility] [place] [facility] [address] [id number] [place] [address] Apr, [facility] [place] [facility] [address] [id number] [place] [address] Apr, [facility] [place] [facility] [address] [id number] [place] [address] Mar, [facility] [place] [facility] [address] [id number] [place] [address] Mar, [facility] [place] [facility] [address] [id number] [place] [address] Mar, [facility] [place] [facility] [address] [id number] [place] [address] Mar, [facility] [place] [facility] [address] [id number] [place] [address] Mar, [facility] [place] [facility] [address] [id number] [place] [address] Feb, [facility] [place] [facility] [address] [id number] [place] [address] Feb, [facility] [place] [facility] [address] [id number] [place] [address] Feb, [facility] [place] [facility] [address] [id number] [place] [address] Feb, [facility] [place] [facility] [address] [id number] [place] [address] Dec, [facility] [place] [facility] [address] [id number] [place] [address] Dec, [facility] [place] [facility] [address] [id number] [place] [address] Dec, [facility] [place] [facility] [address] [id number] [place] [address] Nov, [facility] [place] [facility] [address] [id number] [place] [address] Nov, [facility] [place] [facility] [address] [id number] [place] [address] October, [facility] [place] [facility] [address] [id number] [place] [address] October, [facility] [place] [facility] [address] [id number] [place] [address] Sep, [facility] [place] [facility] [address] [id number] [place] [address] Sep, [facility] [place] [facility] [address] [id number] [place] [address] Sep, [facility] [place] [facility] [address] [id number] [place] [address] Sep, [facility] [place] [facility] [address] [id number] [place] [address] Sep, [facility] [place] [facility] [address] [id number] [place] [address] Aug, [facility] [place] [facility] [address] [id number] [place] [address] Aug, [facility] [place] [facility] [address] [id number], [place] [address] Mar, [facility] [place] [facility] [address] [id number], [place] [address] Mar, [facility] [place] [facility] [address] [id number] [place] [address] Jan, [facility] [place] [facility] [address] [id number] [place] [address] Jan, [facility] [place] [facility] [address] [id number] [place] [address] Dec, [facility] [place] [facility] [address] [id number] [place] [address] Dec, [facility] [address] [id number] [place] [address] Nov, [facility] [place] [facility] [address] [id number] [place] [address] Nov, [facility] [address] [id number] [place] [address] Nov, [facility] [place] [facility] [address] [id number] [place] [address] Sep, [facility] [address] [id number] [place] [address] Sep, [facility] [place] [facility] [address] [facility] [id number] [place] [address] Aug, [facility] [address] [facility] [id number] [place] [address] Aug, [facility] [address] [facility] [id number] [place] [address] Aug, [facility] [place] [facility] [address] [facility] [id number] [place] [address] Jul, [facility] [address] [facility] [id number] [place] [address] Jul, [facility] [address] [facility] [id number] [place] [address] May, [facility] [place] [facility] [address] [facility] [id number] [place] [address] May, [facility] [place] [facility] [address] [id number] [place] [address] Apr, [facility] [place] [facility] [address] [facility] [id number] [place] [address] Apr, [facility] [place] [facility] [address] [facility] [id number] [place] [address] Mar, [facility] [place] [facility] [address] [id number] [place] [address] Mar, [facility] [place] [facility] [address] [id number] [place] [address] Mar, [facility] [place] [facility] [address] [id number] [place] [address] Mar, [facility] [place] [facility] [address] [id number] [place] [address] Mar, [facility] [place] [facility] [address] [id number] [place] [address] Mar, [facility] [place] [facility] [address] [id number] [place] [address] Mar, [facility] [place] [facility] [address] [facility] [id number] [place] [address] Mar, [facility] [place] [facility] [address] [id number], [place] [address] Mar, [facility] [place] [facility] [address] [id number], [place] [address] Mar, [facility] [place] [facility] [address] [facility] [id number], [place] [address] Mar, [facility] [place] [facility] [address] [facility] [id number], [place] [address] Mar, [facility] [place] [facility] [address] [id number], [place] [address] Mar, [facility] [place] [facility] [address] [id number], [place] [address] 13 Feb, 2012 [facility] [place] [facility] [address] [id number], [place] [address] 06 Sep2011 [facility] [place] [facility] [address] [facility] [id number], [place] [address] 04 Sep2011 [facility] [place] [facility] [address] [id number], [place] [address] Jan, [facility] [address] [address] Jan, [facility] [address], [place] [address] October, [facility] [address], [place] [address] Sep, [facility] [id number], [place] [address] Sep, [facility] [address] [place] [address] Aug, [facility] [id number], [place] [address] Jul, [facility] [address] [place] [address] Jul, [facility] [address], [place] [address] Jul, [facility] [address], [place] [address] Jul, [facility] [address], [place] [address] Jun, [facility] [address], [place] [address] May, IMMUNIZATIONS No Known Immunizations SOCIAL HISTORY Never Assessed REASON FOR VISIT Blood sugar concerns-TERESA mcmahan PLAN OF CARE Activity Details Follow Up 4 Weeks Reason:depression VITAL SIGNS Height 67 in 2018-04-14 Weight 199.0 lbs 2018-04-14 Temperature 97.8 degrees Fahrenheit 2018-04-14 Heart Rate 99 bpm 2018-04-14 Respiratory Rate 20 2018-04-14 Oximetry on room air:95 % 2018-04-14 BMI 31.16 kg/m2 2018-04-14 Blood pressure systolic 110 mmHg 2018-04-14 Blood pressure diastolic 70 mmHg 2018-04-14 MEDICATIONS Medication Instructions Dosage Frequency Start Date End Date Duration Status Sertraline HCl 50 mg Orally Once a day 1 tablet 24h 25 Mar, 2018 30 day(s) Active Atorvastatin Calcium 10 mg Orally Once a day 1 tablet 24h 30 days Active Metformin HCl 500 mg Orally Twice a day 1 tablet with meals 12h 30 days Active GlipiZIDE 10 mg Orally Once a day 1 tablet 24h 30 Active RESULTS No Results PROCEDURES Procedure Date Ordered Result Body Site COMPLETE CBC W/AUTO DIFF WBC Apr 14, 2018 GLYCATED HEMOGLOBIN TEST Apr 14, 2018 COMPREHEN METABOLIC PANEL Apr 14, 2018 VENIPUNCT, ROUTINE* Apr 14, 2018 INSTRUCTIONS MEDICATIONS ADMINISTERED No Known Medications MEDICAL (GENERAL) HISTORY Type Description Date Medical History Type II DM Medical History Eye exam 10/2014 No retinopathy Medical History diabetes Surgical History No Surgical history information
--- OUTSIDE RECORDS SUMMARY | 2018-12-10 05:35 | XMS REPORT ---
Author Author CHIVO JOLLY [facility] Address [address] [place] [address] Care Team Providers Care Grinder Operator Automatic Name Role Phone CHIVO JOLLY Unavailable PROBLEMS Type Condition ICD9-CM Code QKS15-NC Code Onset Dates Condition Status SNOMED Code Problem Loss of weight 783.21 Active 181732234 Problem Diabetes mellitus without mention of complication, type II or unspecified type, uncontrolled 250.02 Active 863627403 Problem Acute upper respiratory infections of unspecified site 465.9 Active 74852406 Problem Seasonal allergic rhinitis, unspecified allergic rhinitis trigger J30.2 Active 318419918 Problem Type 2 diabetes mellitus without complications E11.9 Active 747551618 Problem Dermatophytosis of foot 110.4 Active 1922546 Problem Diabetes mellitus without mention of complication, type II or unspecified type, not stated as uncontrolled 250.00 Active 356861687 Problem Type 2 diabetes mellitus with hyperglycemia E11.65 Active 540408894080808 Problem Hyperlipemia E78.5 Active 52519385 Problem Screening examination for pulmonary tuberculosis V74.1 Active 747996556 Problem KINRIX (DTAP/IPV) DX V06.3 Active Problem 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 Active 548112438 Problem MMR DX V06.4 Active Problem POLIO (IPV) DX V04.0 Active 635765424 Problem Proteinuria 791.0 Active 50364257 Problem DTAP TEST V06.1 Active Problem Abdominal pain, left upper quadrant 789.02 Active 281040674 Problem Need for prophylactic vaccination and inoculation, Influenza V04.81 Active 538191870 Problem Dysuria 788.1 Active 88937517 ALLERGIES No Information ENCOUNTERS Encounter Location Date Diagnosis [facility] [address] [facility] [id number] [address] Mar, [facility] [address], [place] [address] Mar, [facility] [id number] [place] [id number] Feb, [facility] [id number] [place] [address] Jan, [facility] [id number] [place] [address] Jan, Acute non-recurrent pansinusitis J01.40 [facility] [id number] [place] [address] Dec, Type 2 diabetes mellitus with hyperglycemia E11.65 [facility] [id number] [place] [address] Jul, Type 2 diabetes mellitus with hyperglycemia E11.65 [place] [id number] [place] [address] Jun, Hyperlipemia E78.5 [facility] [id number] [place] [address] October, Strep throat J02.0 and Sore throat J02.9 [facility] [id number] [place] [address] Aug, [facility] [id number] [place] [address] Jul, Seasonal allergic rhinitis, unspecified allergic rhinitis trigger J30.2 [place] [id number] [place] [address] Jun, Type 2 diabetes mellitus without complications E11.9 [facility] [id number] [place] [address] May, Type 2 diabetes mellitus with hyperglycemia E11.65 and Hyperlipemia E78.5 [place] [id number] [place] [address] Mar, [facility] [address] [address] Mar, [facility] [id number] [place] [address] Feb, Type 2 diabetes mellitus without complications E11.9 [facility] [id number] [place] [address] Feb, [facility] [id number] [place] [address] October, Type 2 diabetes mellitus with hyperglycemia E11.65 [facility] [id number] [place] [address] Aug, Hyperlipemia E78.5 [facility] [id number] [place] [address] Jul, Hyperlipemia E78.5 [facility] [id number] [place] [address] Jul, Type 2 diabetes mellitus with complication E11.8 and Carpal tunnel syndrome G56.00 [facility] [id number] [place] [address] Jul, [facility] [id number] [place] [address] Jul, [facility] [id number] [place] [address] Feb, [facility] [id number] [place] [address] Nov, [facility] [id number] [place] [address] October, Diabetes mellitus without mention of complication, type II or unspecified type, not stated as uncontrolled 250.00 and Proteinuria 791.0 [facility] [id number] [place] [address] Sep, [facility] [place] [facility] [address] [id number] [place] [address] 28 Sep, 2014 [facility] [place] [facility] [address] [id number] [place] [address] 14 Sep, 2014 [facility] [place] [facility] [address] [id number] [place] [address] 13 Sep, 2014 [facility] [place] [facility] [address] [id number] [place] [address] 24 Aug, 2014 [facility] [place] [facility] [address] [id number] [place] [address] 24 Aug, 2014 [facility] [place] [facility] [address] [id number] [place] [address] Aug, [facility] [place] [facility] [address] [id number] [place] [address] Aug, [facility] [place] [facility] [address] [id number] [place] [address] Apr, [facility] [place] [facility] [address] [id number] [place] [address] Apr, [facility] [place] [facility] [address] [id number] [place] [address] Mar, [facility] [place] [facility] [address] [id number] [place] [address] Mar, [facility] [place] [facility] [address] [id number] [place] [address] Mar, [facility] [place] [facility] [address] [id number] [place] [address] Mar, [facility] [place] [facility] [address] [id number] [place] [address] Mar, [facility] [place] [facility] [address] [id number] [place] [address] Feb, [facility] [place] [facility] [address] [id number] [place] [address] Feb, [facility] [place] [facility] [address] [id number] [place] [address] Feb, [facility] [place] [facility] [address] [id number] [place] [address] Feb, [facility] [place] [facility] [address] [id number] [place] [address] Dec, [facility] [place] [facility] [address] [id number] [place] [address] Dec, [facility] [place] [facility] [address] [id number] [place] [address] Dec, [facility] [place] [facility] [address] [id number] [place] [address] Nov, [facility] [place] [facility] [address] [id number] [place] [address] Nov, [facility] [place] [facility] [address] [id number] [place] [address] October, [facility] [place] [facility] [address] [id number] [place] [address] October, [facility] [place] [facility] [address] [id number] [place] [address] Sep, [facility] [place] [facility] [address] [id number] [place] [address] Sep, [facility] [place] [facility] [address] [id number], [place] [address] 08 Sep, 2013 [facility] [place] [facility] [address] [id number] [place] [address] Sep, [facility] [place] [facility] [address] [id number] [place] [address] Sep, [facility] [place] [facility] [address] [id number] [place] [address] Aug, [facility] [place] [facility] [address] [id number] [place] [address] Aug, [facility] [address] [id number] [place] [address] Mar, [facility] [place] [facility] [address] [id number] [place] [address] Mar, [facility] [address] [id number] [place] [address] Jan, [facility] [place] [facility] [address] [id number] [place] [address] Jan, [facility] [place] [facility] [address] [id number] [place] [address] Dec, [facility] [place] [facility] [address] [id number] [place] [address] Dec, [facility] [address] [id number] [place] [address] Nov, [facility] [place] [facility] [address] [id number] [place] [address] Nov, [facility] [place] [facility] [address] [id number] [place] [address] Nov, [facility] [place] [facility] [address] [facility] [id number] [place] [address] Sep, [facility] [place] [facility] [address] [id number] [place] [address] Sep, [facility] [place] [facility] [address] [id number] [place] [address] Aug, [facility] [place] [facility] [address] [id number] [place] [address] Aug, [facility] [place] [facility] [address] [id number] [place] [address] Aug, [facility] [place] [facility] [address] [id number] [place] [address] Jul, [facility] [place] [facility] [address] [id number] [place] [address] Jul, [facility] [place] [facility] [address] [id number] [place] [address] May, [facility] [place] [facility] [address] [id number] [place] [address] May, [facility] [place] [facility] [address] [id number] [place] [address] Apr, [facility] [place] [facility] [address] [id number] [place] [address] Apr, [facility] [place] [facility] [address] [id number] [place] [address] Mar, [facility] [place] [facility] [address] [facility] [id number] [place] [address] Mar, [facility] [place] [facility] [address] [id number] [place] [address] Mar, [facility] [place] [facility] [address] [id number] [place] [address] Mar, [facility] [place] [facility] [address] [facility] [id number], [place] [address] Mar, [facility] [place] [facility] [address] [facility] [id number], [place] [address] Mar, [facility] [place] [facility] [address] [id number], [place] [address] Mar, [facility] [place] [facility] [address] [id number], [place] [address] Mar, [facility] [place] [facility] [address] [id number], [place] [address] Mar, [facility] [place] [facility] [address] [facility] [id number], [place] [address] Mar, [facility] [place] [facility] [address] [id number], [place] [address] Mar, [facility] [address] [id number] [place] [address] 15 Mar, 2012 [facility] [place] [facility] [address] [id number], [place] [address] 15 Mar, 2012 [facility] [place] [facility] [address] [facility] [id number] [place] [address] 13 Feb, 2012 [facility] [place] [facility] [address] [id number] [place] [address] 06 Feb, 2012 [facility] [place] [facility] [address] [id number] [place] [address] 04 Feb, 2012 [facility] [place] [facility] [address] [facility] [id number] [place] [address] 16 Jan, 2012 [facility] [address], [place] [address] Jan, [facility] [place] [facility] [address] [facility] [id number] [place] [address] October, [facility] [id number] [place] [address] Sep, [facility] [place] [facility] [address] [facility] [id number], [place] [address] Sep, [facility] [place] [facility] [address] [facility] [id number], [place] [address] Aug, [facility] [place] [facility] [address] [facility] [id number], [place] [address] Jul, [facility] [place] [facility] [address] [id number] [place] [address] Jul, [facility] [place] [facility] [address] [facility] [id number], [place] [address] Jul, [facility] [place] [facility] [id number] [address] Jul, [facility] [place] [facility] [address] [facility] [id number] [place] [address] Jun, [facility] [address] [facility] [id number], [place] [address] May, IMMUNIZATIONS No Known Immunizations SOCIAL HISTORY Never Assessed REASON FOR VISIT Phone Call PLAN OF CARE VITAL SIGNS MEDICATIONS Unknown Medications RESULTS No Results PROCEDURES No Known procedures INSTRUCTIONS MEDICATIONS ADMINISTERED No Known Medications MEDICAL (GENERAL) HISTORY Type Description Date Medical History Type II DM Medical History Eye exam 10/2014 No retinopathy Medical History diabetes
--- OUTSIDE RECORDS SUMMARY | 2018-12-10 05:36 | XMS REPORT ---
Author Author CHIVO JOLLY [facility] Address [address] [place] [address] Care Team Providers Care Sorting Machine Operator Name Role Phone CHIVO JOLLY Unavailable PROBLEMS Type Condition ICD9-CM Code RBH29-FK Code Onset Dates Condition Status SNOMED Code Problem Loss of weight 783.21 Active 656000779 Problem Diabetes mellitus without mention of complication, type II or unspecified type, uncontrolled 250.02 Active 713848539 Problem Acute upper respiratory infections of unspecified site 465.9 Active 82222356 Problem Seasonal allergic rhinitis, unspecified allergic rhinitis trigger J30.2 Active 160778021 Problem Type 2 diabetes mellitus without complications E11.9 Active 021399997 Problem Dermatophytosis of foot 110.4 Active 8652501 Problem Diabetes mellitus without mention of complication, type II or unspecified type, not stated as uncontrolled 250.00 Active 223811323 Problem Type 2 diabetes mellitus with hyperglycemia E11.65 Active 026828771923846 Problem Hyperlipemia E78.5 Active 52461167 Problem Screening examination for pulmonary tuberculosis V74.1 Active 147516537 Problem KINRIX (DTAP/IPV) DX V06.3 Active Problem 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 [id number] [place] [address] Jan, Acute non-recurrent pansinusitis J01.40 [place] [address] [place] [id number] [place] [address] Dec, Type 2 diabetes mellitus with hyperglycemia E11.65 [place] [address] [place] [id number] [place] [address] Jul, Type 2 diabetes mellitus with hyperglycemia E11.65 [place] [address] [place] [id number] [place] [address] Jun, Hyperlipemia E78.5 [facility] [place] [address] [place] [id number] [place] [address] October, Strep throat J02.0 and Sore throat J02.9 [place] [address] [place] [id number] [place] [address] Aug, [facility] [place] [address] [place] [id number] [place] [address] Jul, Seasonal allergic rhinitis, unspecified allergic rhinitis trigger J30.2 [place] [address] [place] [id number] [place] [address] Jun, Type 2 diabetes mellitus without complications E11.9 [place] [address] [place] [id number] [place] [address] May, Type 2 diabetes mellitus with hyperglycemia E11.65 and Hyperlipemia E78.5 [place] [id number] [place] [address] Mar, [place] [address] [place] [id number] [place] [address] Mar, [place] [address] [place] [id number] [place] [address] Feb, Type 2 diabetes mellitus without complications E11.9 [place] [address] [place] [id number] [place] [address] Feb, [facility] [id number] [place] [address] October, Type 2 diabetes mellitus with hyperglycemia E11.65 [facility] [address] [place] [id number] [place] [address] Aug, Hyperlipemia E78.5 [facility] [address] [place] [id number] [place] [address] Jul, Hyperlipemia E78.5 [facility] [address] [place] [id number] [place] [address] Jul, Type 2 diabetes mellitus with complication E11.8 and Carpal tunnel syndrome G56.00 [facility] [address] [place] [id number] [place] [address] Jul, [facility] [address] [place] [id number] [place] [address] Jul, [facility] [address] [id number] [place] [address] Feb, [facility] [address] [id number] [place] [address] Nov, [facility] [address] [id number] [place] [address] October, Diabetes mellitus without mention of complication, type II or unspecified type, not stated as uncontrolled 250.00 and Proteinuria 791.0 [facility] [address] [address] Sep, [facility] [address] [place] [id number] [place] [address] Sep, [facility] [address] [id number] [place] [address] Sep, [facility] [address] [id number] [place] [address] Sep, [facility] [place] [facility] [address] [id number] [place] [address] Aug, 2014 [facility] [place] [facility] [address] [id number] [place] [address] Aug, 2014 [facility] [place] [facility] [address] [id number] [place] [address] Aug, 2014 [facility] [place] [facility] [address] [id number] [place] [address] Aug, 2014 [facility] [place] [facility] [address] [id number] [place] [address] Apr, [facility] [place] [facility] [address] [id number] [place] [address] Apr, [facility] [place] [facility] [address] [id number] [place] [address] Mar, [facility] [place] [facility] [address] [id number] [place] [address] Mar, [facility] [place] [facility] [address] [id number] [place] [address] Mar, [facility] [place] [facility] [address] [id number] [place] [address] Mar, [facility] [place] [facility] [address] [id number] [place] [address] Mar, [facility] [place] [facility] [address] [id number] [place] [address] Feb, 2013 [facility] [place] [facility] [address] [id number] [place] [address] Feb, 2013 [facility] [place] [facility] [address] [id number] [place] [address] Feb, [facility] [place] [facility] [address] [id number] [place] [address] Feb, [facility] [place] [facility] [address] [id number] [place] [address] Dec, [facility] [place] [facility] [address] [id number] [place] [address] Dec, [facility] [place] [facility] [address] [id number] [place] [address] Dec, [facility] [place] [facility] [address] [id number] [place] [address] Nov, [facility] [place] [facility] [address] [id number] [place] [address] Nov, [facility] [place] [facility] [address] [id number] [place] [address] October, [facility] [place] [facility] [address] [id number] [place] [address] October, [facility] [place] [facility] [address] [id number] [place] [address] Sep, [facility] [place] [facility] [address] [id number] [place] [address] Sep, [facility] [place] [facility] [address] [id number] [place] [address] Sep, [facility] [place] [facility] [address] [id number] [place] [address] Sep, [facility] [place] [facility] [address] [id number] [place] [address] Sep, [facility] [place] [facility] [address] [id number] [place] [address] Aug, [facility] [place] [facility] [address] [id number] [place] [address] Aug, [facility] [place] [facility] [address] [id number] [place] [address] Mar, [facility] [place] [facility] [address] [id number] [place] [address] Mar, [facility] [place] [facility] [address] [id number] [place] [address] Jan, [facility] [address] [id number] [place] [address] Jan, [facility] [address] [id number] [place] [address] Dec, [facility] [address] [id number] [place] [address] Dec, [facility] [place] [facility] [address] [id number] [place] [address] Nov, [facility] [address] [id number] [place] [address] Nov, [facility] [address] [id number] [place] [address] Nov, [facility] [address] [id number] [place] [address] Sep, [facility] [address] [id number] [place] [address] Sep, [facility] [address] [id number] [place] [address] Aug, [facility] [address] [facility] [id number] [place] [address] Aug, [facility] [address] [id number] [place] [address] Aug, [facility] [place] [facility] [address] [id number] [place] [address] Jul, [facility] [place] [facility] [address] [id number] [place] [address] Jul, [facility] [place] [facility] [address] [id number] [place] [address] May, [facility] [place] [facility] [address] [id number] [place] [address] May, [facility] [place] [facility] [address] [id number] [place] [address] Apr, [facility] [place] [facility] [address] [id number] [place] [address] Apr, [facility] [place] [facility] [address] [id number] [place] [address] Mar, [facility] [place] [facility] [address] [id number] [place] [address] Mar, [facility] [place] [facility] [address] [id number] [place] [address] Mar, [facility] [place] [facility] [address] [id number] [place] [address] Mar, [facility] [place] [facility] [address] [id number] [place] [address] Mar, [facility] [place] [facility] [address] [id number] [address] Mar, [facility] [place] [facility] [address] [id number] [place] [address] Mar, [facility] [place] [facility] [address] [id number] [place] [address] Mar, [facility] [place] [facility] [address] [facility] [id number] [place] [address] Mar, [facility] [place] [facility] [address] [id number] [place] [address] Mar, [facility] [place] [facility] [address] [id number] [place] [address] Mar, [facility] [place] [facility] [address] [id number] [place] [address] Mar, [facility] [place] [facility] [address] [id number] [place] [address] Mar, [facility] [place] [facility] [address] [id number] [place] [address] 13 Feb, 2012 [facility] [address] [address] 06 Feb, 2012 [facility] [address] [address] Feb, [facility] [address] [address] Jan, [facility] [address] [address] Jan, [facility] [id number] [place] [address] October, [facility] [id number] [place] [address] Sep, [facility] [id number] [place] [address] Sep, [facility] [address] [address] Aug, [facility] [address] [address] Jul, [facility] [address] [address] Jul, [facility] [address] [address] Jul, [facility] [address] [place] [id number] [address] Jul, [facility] [address] [address] Jun, [facility] [address] [address] May, IMMUNIZATIONS No Known Immunizations SOCIAL HISTORY Never Assessed REASON FOR VISIT Refill request PLAN OF CARE VITAL SIGNS MEDICATIONS Medication Instructions Dosage Frequency Start Date End Date Duration Status GlipiZIDE 5 MG Orally twice a day 2 tablet 12h 45 days Active Pioglitazone HCl 45 MG Orally Once a day 1 tablet 24h Jul, 45 days Active Metformin HCl 500 MG Orally twice a day 2 tablet 12h 45 days Active RESULTS No Results PROCEDURES No Known procedures INSTRUCTIONS MEDICATIONS ADMINISTERED No Known Medications MEDICAL (GENERAL) HISTORY Type Description Date Medical History diabetes
--- OUTSIDE RECORDS SUMMARY | 2018-12-10 05:36 | XMS REPORT ---
Author Author MANAV Patel [facility] [place] Address [address] [place] [address] Care Team Providers Care Flight Data Technician Name Role Phone MANAV Patel Unavailable PROBLEMS Type Condition ICD9-CM Code MXA79-UL Code Onset Dates Condition Status SNOMED Code Problem Loss of weight 783.21 Active 670405878 Problem Diabetes mellitus without mention of complication, type II or unspecified type, uncontrolled 250.02 Active 336326768 Problem Acute upper respiratory infections of unspecified site 465.9 Active 28232807 Problem Seasonal allergic rhinitis, unspecified allergic rhinitis trigger J30.2 Active 810547629 Problem Type 2 diabetes mellitus without complications E11.9 Active 864893789 Problem Dermatophytosis of foot 110.4 Active 9953460 Problem Diabetes mellitus without mention of complication, type II or unspecified type, not stated as uncontrolled 250.00 Active 016183668 Problem Type 2 diabetes mellitus with hyperglycemia E11.65 Active 247016464642245 Problem Hyperlipemia E78.5 Active 53416326 Problem Screening examination for pulmonary tuberculosis V74.1 Active 425904338 Problem KINRIX (DTAP/IPV) DX V06.3 Active Problem 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 Active 955731890 Problem MMR DX V06.4 Active Problem POLIO (IPV) DX V04.0 Active 956927363 Problem Proteinuria 791.0 Active 10491062 Problem DTAP TEST V06.1 Active Problem Abdominal pain, left upper quadrant 789.02 Active 336516048 Problem Need for prophylactic vaccination and inoculation, Influenza V04.81 Active 407094524 Problem Dysuria 788.1 Active 70802768 ALLERGIES No Known Allergies ENCOUNTERS Encounter Location Date Diagnosis [facility] [address] [facility] [id number] [address] Jan, [facility] [address] [address] Jan, Acute non-recurrent pansinusitis J01.40 [facility] [id number] [place] [address] Dec, Type 2 diabetes mellitus with hyperglycemia E11.65 [facility] [id number] [place] [address] Jul, Type 2 diabetes mellitus with hyperglycemia E11.65 [facility] [id number] [place] [address] Jun, Hyperlipemia E78.5 [facility] IN [facility] [id number] [place] [address] October, Strep throat J02.0 and Sore throat J02.9 [place] [id number] [place] [address] Aug, [facility] IN [facility] [id number] [place] [address] Jul, Seasonal allergic rhinitis, unspecified allergic rhinitis trigger J30.2 [place] [id number] [place] [address] Jun, Type 2 diabetes mellitus without complications E11.9 [place] [id number] [place] [address] May, Type 2 diabetes mellitus with hyperglycemia E11.65 and Hyperlipemia E78.5 [place] [address] [place] [address] Mar, [place] [id number] [place] [address] Mar, [place] [id number] [place] [address] Feb, Type 2 diabetes mellitus without complications E11.9 [place] [id number] [place] [address] Feb, [facility] [id number] [place] [address] October, Type 2 diabetes mellitus with hyperglycemia E11.65 [facility] [id number] [place] [address] Aug, Hyperlipemia E78.5 [facility] [id number] [place] [address] Jul, Hyperlipemia E78.5 [facility] [id number] [place] [address] Jul, Type 2 diabetes mellitus with complication E11.8 and Carpal tunnel syndrome G56.00 [facility] [id number] [place] [address] Jul, [facility] [id number] [place] [address] Jul, [facility] [id number] [place] [address] Feb, [facility] [id number] [place] [address] Nov, [facility] [id number] [place] [address] October, Diabetes mellitus without mention of complication, type II or unspecified type, not stated as uncontrolled 250.00 and Proteinuria 791.0 [facility] [address] [address] Sep, [facility] [id number] [place] [address] Sep, [facility] [address] [address] Sep, [facility] [id number] [place] [address] Sep, [facility] [place] [facility] [address] [id number] [place] [address] Aug, [facility] [place] [facility] [address] [id number] [place] [address] Aug, [facility] [place] [facility] [address] [id number] [place] [address] Aug, [facility] [place] [facility] [address] [id number] [place] [address] Aug, [facility] [place] [facility] [address] [id number] [place] [address] Apr, [facility] [place] [facility] [address] [id number] [place] [address] Apr, [facility] [place] [facility] [address] [id number] [place] [address] Mar, [facility] [place] [facility] [address] [id number] [place] [address] Mar, [facility] [place] [facility] [address] [id number] [place] [address] Mar, [facility] [place] [facility] [address] [id number] [place] [address] Mar, [facility] [place] [facility] [address] [id number] [place] [address] Mar, [facility] [place] [facility] [address] [id number] [place] [address] Feb, 2013 [facility] [place] [facility] [address] [id number] [place] [address] Feb, [facility] [place] [facility] [address] [id number] [place] [address] Feb, [facility] [place] [facility] [address] [id number] [place] [address] Feb, [facility] [place] [facility] [address] [id number] [place] [address] Dec, [facility] [place] [facility] [address] [id number] [place] [address] Dec, [facility] [place] [facility] [address] [id number] [place] [address] Dec, [facility] [place] [facility] [address] [id number] [place] [address] Nov, [facility] [place] [facility] [address] [id number] [place] [address] Nov, [facility] [place] [facility] [address] [id number] [place] [address] October, [facility] [place] [facility] [address] [id number] [place] [address] October, [facility] [place] [facility] [address] [id number] [place] [address] Sep, [facility] [place] [facility] [address] [id number] [place] [address] Sep, [facility] [place] [facility] [address] [id number] [place] [address] Sep, [facility] [place] [facility] [address] [id number] [place] [address] Sep, [facility] [place] [facility] [address] [id number] [place] [address] Sep, [facility] [place] [facility] [address] [id number] [place] [address] Aug, [facility] [place] [facility] [address] [id number] [place] [address] Aug, [facility] [place] [facility] [address] [id number] [place] [address] Mar, [facility] [place] [facility] [address] [id number] [place] [address] Mar, [facility] [place] [facility] [address] [id number] [place] [address] Jan, [facility] [address] [id number] [place] [address] Jan, [facility] [place] [facility] [address] [id number] [place] [address] Dec, [facility] [place] [facility] [address] [id number] [place] [address] Dec, [facility] [place] [facility] [address] [id number] [place] [address] Nov, [facility] [place] [facility] [address] [id number] [place] [address] Nov, [facility] [place] [facility] [address] [id number] [place] [address] Nov, [facility] [place] [facility] [address] [id number] [place] [address] Sep, [facility] [address] [id number] [place] [address] Sep, [facility] [place] [facility] [address] [id number] [place] [address] Aug, [facility] [place] [facility] [address] [id number] [place] [address] Aug, [facility] [place] [facility] [address] [id number] [place] [address] Aug, [facility] [place] [facility] [address] [id number] [place] [address] Jul, [facility] [place] [facility] [address] [id number] [place] [address] Jul, [facility] [place] [facility] [address] [id number] [place] [address] May, [facility] [place] [facility] [address] [id number] [place] [address] May, [facility] [place] [facility] [address] [id number] [place] [address] Apr, [facility] [place] [facility] [address] [id number] [place] [address] Apr, [facility] [place] [facility] [address] [facility] [id number] [place] [address] Mar, [facility] [place] [facility] [address] [id number] [place] [address] Mar, [facility] [place] [facility] [address] [id number] [place] [address] Mar, [facility] [place] [facility] [address] [id number] [place] [address] Mar, [facility] [place] [facility] [address] [id number] [place] [address] Mar, [facility] [place] [facility] [address] [id number] [place] [address] Mar, [facility] [place] [facility] [address] [id number] [place] [address] Mar, [facility] [place] [facility] [address] [facility] [id number] [place] [address] Mar, [facility] [place] [facility] [address] [id number] [place] [address] Mar, [facility] [place] [facility] [address] [id number] [place] [address] Mar, [facility] [place] [facility] [address] [id number] [place] [address] Mar, [facility] [place] [facility] [address] [facility] [id number] [place] [address] Mar, [facility] [place] [facility] [address] [facility] [id number] [place] [address] Mar, [facility] [place] [facility] [address] [address] 13 Feb, 2012 [facility] [address] [address] 06 Feb, 2012 [facility] [id number] [address] 04 Feb, 2012 [facility] [address] [address] 16 Jan, 2012 [facility] [id number] [address] Jan, [facility] [address] [address] October, [facility] [address] [address] Sep, [facility] [address] [address] Sep, [facility] [address] [address] Aug, [facility] [address] [address] Jul, [facility] [address] [address] Jul, [facility] [id number] [address] Jul, [facility] [id number] [address] Jul, [facility] [id number] [address] Jun, [facility] [id number] [address] May, IMMUNIZATIONS No Known Immunizations SOCIAL HISTORY Never Assessed REASON FOR VISIT cough, congestion for 2 weeks. went to an urgent care in [place] et was on pred nisone PO X 5 days. has completed that treatment. [email or web address] PLAN OF CARE Activity Details Follow Up prn Reason: VITAL SIGNS Height 67 in 2018-01-24 Weight 207.4 lbs 2018-01-24 Temperature 98.3 degrees Fahrenheit 2018-01-24 Heart Rate 88 bpm 2018-01-24 Respiratory Rate 20 2018-01-24 BMI 32.48 kg/m2 2018-01-24 Blood pressure systolic 126 mmHg 2018-01-24 Blood pressure diastolic 76 mmHg 2018-01-24 MEDICATIONS Medication Instructions Dosage Frequency Start Date End Date Duration Status Zyrtec Allergy 10 MG Orally Once a day 1 tablet 24h Jan, Feb, 30 day(s) Active Atorvastatin Calcium 10 MG Orally Once a day 1 tablet 24h Active Flonase Allergy Relief 50 MCG/ACT Nasally Once a day 1 spray in each nostril 24h Jan, 30 day(s) Active Augmentin 875-125 MG Orally every 12 hrs 1 tablet 12h Jan, Jan, 10 day(s) Active GlipiZIDE 10 MG Orally Once a day 1 tablet 24h Active Metformin HCl 500 MG Orally Twice a day 1 tablet with meals 12h Active RESULTS No Results PROCEDURES No Known procedures INSTRUCTIONS MEDICATIONS ADMINISTERED No Known Medications MEDICAL (GENERAL) HISTORY Type Description Date Medical History Type II DM Medical History Eye exam 10/2014 No retinopathy Medical History diabetes
--- OUTSIDE RECORDS SUMMARY | 2018-12-10 05:36 | XMS REPORT ---
Author Author DOMINICK REEVES [facility] Address [address] [place] [address] Care Team Providers Care Senior [employer] Et[employer] Developer Name Role Phone DOMINICK REEVES Unavailable PROBLEMS Type Condition ICD9-CM Code YNF99-BJ Code Onset Dates Condition Status SNOMED Code Problem Loss of weight 783.21 Active 956182848 Problem Diabetes mellitus without mention of complication, type II or unspecified type, uncontrolled 250.02 Active 120018990 Problem Acute upper respiratory infections of unspecified site 465.9 Active 44220488 Problem Seasonal allergic rhinitis, unspecified allergic rhinitis trigger J30.2 Active 050469154 Problem Type 2 diabetes mellitus without complications E11.9 Active 487968027 Problem Dermatophytosis of foot 110.4 Active 7705960 Problem Diabetes mellitus without mention of complication, type II or unspecified type, not stated as uncontrolled 250.00 Active 628062579 Problem Type 2 diabetes mellitus with hyperglycemia E11.65 Active 128108328401814 Problem Hyperlipemia E78.5 Active 62907800 Problem Screening examination for pulmonary tuberculosis V74.1 Active 410572001 Problem KINRIX (DTAP/IPV) DX V06.3 Active Problem 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 [id number] [address] 17 Feb, 2018 [facility] [id number] [address] Jan, [facility] [address] [address] Jan, Acute non-recurrent pansinusitis J01.40 [facility] [id number] [place] [address] Dec, Type 2 diabetes mellitus with hyperglycemia E11.65 [facility] [id number] [place] [address] Jul, Type 2 diabetes mellitus with hyperglycemia E11.65 [place] [id number] [place] [address] Jun, Hyperlipemia E78.5 [facility] [id number] [place] [address] October, Strep throat J02.0 and Sore throat J02.9 [place] [id number] [place] [address] Aug, [facility] [id number] [place] [address] Jul, Seasonal allergic rhinitis, unspecified allergic rhinitis trigger J30.2 [place] [address] [place] [address] Jun, Type 2 diabetes mellitus without complications E11.9 [place] [address] [address] May, Type 2 diabetes mellitus with hyperglycemia E11.65 and Hyperlipemia E78.5 [place] [id number] [place] [address] Mar, [place] [id number] [place] [address] Mar, [place] [address], [place] [address] Feb, Type 2 diabetes mellitus without complications E11.9 [facility] [address], [place] [address] Feb, [facility] [id number] [place] [address] October, Type 2 diabetes mellitus with hyperglycemia E11.65 [facility] [id number] [place] [address] Aug, Hyperlipemia E78.5 [facility] [id number] [place] [address] Jul, Hyperlipemia E78.5 [facility] [id number] [place] [address] Jul, Type 2 diabetes mellitus with complication E11.8 and Carpal tunnel syndrome G56.00 [facility] [id number] [place] [address] Jul, [facility] [id number] [place] [address] Jul, [facility] [id number] [place] [address] Feb, [facility] [id number] [place] [address] Nov, [facility] [id number] [place] [address] October, Diabetes mellitus without mention of complication, type II or unspecified type, not stated as uncontrolled 250.00 and Proteinuria 791.0 [facility] [address], [place] [address] Sep, [facility] [id number] [place] [address] Sep, [facility] [address] [address] Sep, [facility] [id number] [place] [address] Sep, [facility] [place] [facility] [address] [id number] [place] [address] Aug, [facility] [place] [facility] [address] [id number] [place] [address] Aug, [facility] [place] [facility] [address] [id number] [place] [address] Aug, [facility] [place] [facility] [address] [id number] [place] [address] Aug, [facility] [place] [facility] [address] [id number] [place] [address] Apr, [facility] [place] [facility] [address] [id number] [place] [address] Apr, [facility] [place] [facility] [address] [id number] [place] [address] Mar, [facility] [place] [facility] [address] [id number] [place] [address] Mar, [facility] [place] [facility] [address] [id number] [place] [address] Mar, [facility] [place] [facility] [address] [id number] [place] [address] Mar, [facility] [place] [facility] [address] [id number] [place] [address] Mar, [facility] [place] [facility] [address] [id number] [place] [address] Feb, 2013 [facility] [place] [facility] [address] [id number] [place] [address] Feb, 2013 [facility] [place] [facility] [address] [id number] [place] [address] Feb, 2013 [facility] [place] [facility] [address] [id number] [place] [address] Feb, [facility] [place] [facility] [address] [id number] [place] [address] Dec, [facility] [place] [facility] [address] [id number] [place] [address] Dec, [facility] [place] [facility] [address] [id number] [place] [address] Dec, [facility] [place] [facility] [address] [id number] [place] [address] Nov, [facility] [place] [facility] [address] [id number] [place] [address] Nov, [facility] [place] [facility] [address] [id number] [place] [address] October, [facility] [place] [facility] [address] [id number] [place] [address] October, [facility] [place] [facility] [address] [id number] [place] [address] Sep, [facility] [place] [facility] [address] [id number] [place] [address] Sep, [facility] [place] [facility] [address] [id number] [place] [address] Sep, [facility] [place] [facility] [address] [id number] [place] [address] Sep, [facility] [place] [facility] [address] [id number] [place] [address] Sep, [facility] [place] [facility] [address] [id number] [place] [address] Aug, [facility] [place] [facility] [address] [id number] [place] [address] Aug, [facility] [place] [facility] [address] [id number] [place] [address] Mar, [facility] [place] [facility] [address] [id number], [place] [address] Mar, [facility] [address] [id number] [place] [address] Jan, [facility] [place] [facility] [address] [id number] [place] [address] Jan, [facility] [address] [facility] [id number] [place] [address] Dec, [facility] [place] [facility] [address] [id number] [place] [address] Dec, [facility] [address] [id number] [place] [address] Nov, [facility] [address] [facility] [id number] [place] [address] Nov, [facility] [address] [facility] [id number] [place] [address] Nov, [facility] [place] [facility] [address] [facility] [id number] [place] [address] Sep, [facility] [address] [facility] [id number] [place] [address] Sep, [facility] [place] [facility] [address] [facility] [id number] [place] [address] Aug, [facility] [address] [facility] [id number], [place] [address] Aug, [facility] [place] [facility] [address] [facility] [id number], [place] [address] Aug, [facility] [place] [facility] [address] [facility] [id number] [place] [address] Jul, [facility] [place] [facility] [address] [facility] [id number], [place] [address] Jul, [facility] [place] [facility] [address] [facility] [id number] [place] [address] May, [facility] [place] [facility] [address] [id number] [place] [address] May, [facility] [place] [facility] [address] [id number] [place] [address] Apr, [facility] [place] [facility] [address] [id number] [place] [address] Apr, [facility] [place] [facility] [address] [id number] [place] [address] Mar, [facility] [place] [facility] [address] [id number] [place] [address] Mar, [facility] [place] [facility] [address] [id number] [place] [address] Mar, [facility] [place] [facility] [address] [id number] [place] [address] Mar, [facility] [place] [facility] [address] [id number] [place] [address] Mar, [facility] [place] [facility] [address] [id number] [place] [address] Mar, [facility] [place] [facility] [address] [id number] [place] [address] Mar, [facility] [place] [facility] [address] [id number] [place] [address] Mar, [facility] [place] [facility] [address] [id number] [place] [address] Mar, [facility] [place] [facility] [address] [id number] [place] [address] Mar, [facility] [place] [facility] [address] [id number] [place] [address] Mar, [facility] [place] [facility] [address] [id number] [place] [address] Mar, [facility] [place] [facility] [address] [id number] [place] [address] 15 Mar, 2012 [facility] [address] [facility] [id number] [place] [address] 13 Feb, 2012 [facility] [address] [facility] [id number] [place] [address] 06 Feb, 2012 [facility] [id number] [place] [address] 04 Feb, 2012 [facility] [address] [facility] [id number], [place] [address] 16 Jan, 2012 [facility] [address] [facility] [id number] [place] [address] Jan, [facility] [address] [place] [address] October, [facility] [address] [place] [address] Sep, [facility] [address], [place] [address] Sep, [facility] [address] [address] Aug, [facility] [address] [place] [address] Jul, [facility] [address], [place] [address] Jul, [facility] [address] [place] [address] Jul, [facility] [id number] [address] Jul, [facility] [address] [place] [address] Jun, [facility] [id number] [address] May, IMMUNIZATIONS No Known Immunizations SOCIAL HISTORY Never Assessed REASON FOR VISIT Requests return call PLAN OF CARE VITAL SIGNS MEDICATIONS Medication Instructions Dosage Frequency Start Date End Date Duration Status Metformin HCl 500 mg Orally Twice a day 1 tablet with meals 12h 30 days Active RESULTS No Results PROCEDURES No Known procedures INSTRUCTIONS MEDICATIONS ADMINISTERED No Known Medications MEDICAL (GENERAL) HISTORY Type Description Date Medical History Type II DM Medical History Eye exam 10/2014 No retinopathy Medical History diabetes
--- OUTSIDE RECORDS SUMMARY | 2018-12-10 05:36 | XMS REPORT ---
Author Author CHIVO JOLLY [facility] Address [address] [place] [address] Care Team Providers Care Developer Evangelist Name Role Phone CHIVO JOLLY Unavailable PROBLEMS Type Condition ICD9-CM Code WMY45-IP Code Onset Dates Condition Status SNOMED Code Problem Loss of weight 783.21 Active 367383346 Problem Diabetes mellitus without mention of complication, type II or unspecified type, uncontrolled 250.02 Active 198161899 Problem Acute upper respiratory infections of unspecified site 465.9 Active 09921736 Problem Seasonal allergic rhinitis, unspecified allergic rhinitis trigger J30.2 Active 330100834 Problem Type 2 diabetes mellitus without complications E11.9 Active 211090154 Problem Dermatophytosis of foot 110.4 Active 9282325 Problem Diabetes mellitus without mention of complication, type II or unspecified type, not stated as uncontrolled 250.00 Active 819913901 Problem Type 2 diabetes mellitus with hyperglycemia E11.65 Active 528401199431046 Problem Hyperlipemia E78.5 Active 97569697 Problem Screening examination for pulmonary tuberculosis V74.1 Active 083721012 Problem KINRIX (DTAP/IPV) DX V06.3 Active Problem 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 Active 597606746 Problem MMR DX V06.4 Active Problem POLIO (IPV) DX V04.0 Active 201063317 Problem Proteinuria 791.0 Active 51774372 Problem DTAP TEST V06.1 Active Problem Abdominal pain, left upper quadrant 789.02 Active 980437577 Problem Need for prophylactic vaccination and inoculation, Influenza V04.81 Active 156449238 Problem Dysuria 788.1 Active 41303086 ALLERGIES No Information ENCOUNTERS Encounter Location Date Diagnosis [facility] [address] [facility] [id number] [address] Jan, [facility] [address] [place] [address] Jan, Acute non-recurrent pansinusitis J01.40 [place] [id number] [place] [address] Dec, Type 2 diabetes mellitus with hyperglycemia E11.65 [place] [address] [place] [address] Jul, Type 2 diabetes mellitus with hyperglycemia E11.65 [place] [address] [place] [address] Jun, Hyperlipemia E78.5 [facility] [place] [address] [place] [address] October, Strep throat J02.0 and Sore throat J02.9 [place] [address] [place] [address] Aug, [facility] [place] [address] [place] [address] Jul, Seasonal allergic rhinitis, unspecified allergic rhinitis trigger J30.2 [place] [address] [place] [address] Jun, Type 2 diabetes mellitus without complications E11.9 [place] [address] [place] [address] May, Type 2 diabetes mellitus with hyperglycemia E11.65 and Hyperlipemia E78.5 [place] [address] [place] [address] Mar, [place] [id number] [place] [address] Mar, [place] [address] [place] [address] Feb, Type 2 diabetes mellitus without complications E11.9 [place] [address] [place] [address] Feb, [facility] [address] [place] [address] October, Type 2 diabetes mellitus with hyperglycemia E11.65 [facility] [id number] [place] [address] Aug, Hyperlipemia E78.5 [facility] [id number] [place] [address] Jul, Hyperlipemia E78.5 [facility] [address] [place] [address] Jul, Type 2 diabetes mellitus with complication E11.8 and Carpal tunnel syndrome G56.00 [facility] [id number] [place] [address] Jul, [facility] [address] [place] [address] Jul, [facility] [id number] [place] [address] Feb, [facility] [id number] [place] [address] Nov, [facility] [address] [place] [address] October, Diabetes mellitus without mention of complication, type II or unspecified type, not stated as uncontrolled 250.00 and Proteinuria 791.0 [facility] [address] [address] Sep, [facility] [id number] [place] [address] Sep, [facility] [id number] [place] [address] Sep, [facility] [id number] [place] [address] Sep, [facility] [place] [facility] [address] [id number] [place] [address] Aug, 2014 [facility] [place] [facility] [address] [id number] [place] [address] Aug, 2014 [facility] [place] [facility] [address] [id number] [place] [address] Aug, 2014 [facility] [place] [facility] [address] [id number] [place] [address] Aug, 2014 [facility] [place] [facility] [address] [id number] [place] [address] Apr, [facility] [place] [facility] [address] [id number] [place] [address] Apr, [facility] [place] [facility] [address] [id number] [place] [address] Mar, [facility] [place] [facility] [address] [id number] [place] [address] Mar, [facility] [place] [facility] [address] [id number] [place] [address] Mar, [facility] [place] [facility] [address] [id number] [place] [address] Mar, [facility] [place] [facility] [address] [id number] [place] [address] Mar, [facility] [place] [facility] [address] [id number] [place] [address] Feb, 2013 [facility] [place] [facility] [address] [id number] [place] [address] Feb, 2013 [facility] [place] [facility] [address] [id number] [place] [address] Feb, [facility] [place] [facility] [address] [id number] [place] [address] Feb, [facility] [place] [facility] [address] [id number] [place] [address] Dec, [facility] [place] [facility] [address] [id number] [place] [address] Dec, [facility] [place] [facility] [address] [id number] [place] [address] Dec, [facility] [place] [facility] [address] [id number] [place] [address] Nov, [facility] [place] [facility] [address] [id number] [place] [address] Nov, [facility] [place] [facility] [address] [id number] [place] [address] October, [facility] [place] [facility] [address] [id number] [place] [address] October, [facility] [place] [facility] [address] [id number] [place] [address] Sep, [facility] [place] [facility] [address] [id number] [place] [address] Sep, [facility] [place] [facility] [address] [id number] [place] [address] Sep, [facility] [place] [facility] [address] [id number] [place] [address] Sep, [facility] [place] [facility] [address] [id number] [place] [address] Sep, [facility] [place] [facility] [address] [id number] [place] [address] Aug, [facility] [place] [facility] [address] [id number] [place] [address] Aug, [facility] [place] [facility] [address] [id number] [place] [address] Mar, [facility] [place] [facility] [address] [id number] [place] [address] Mar, [facility] [place] [facility] [address] [id number] [place] [address] Jan, [facility] [address] [id number] [place] [address] Jan, [facility] [address] [id number] [place] [address] Dec, [facility] [address] [id number] [place] [address] Dec, [facility] [place] [facility] [address] [id number] [place] [address] Nov, [facility] [address] [id number] [place] [address] Nov, [facility] [address] [id number] [place] [address] Nov, [facility] [address] [id number] [place] [address] Sep, [facility] [address] [id number] [place] [address] Sep, [facility] [address] [id number] [place] [address] Aug, [facility] [address] [facility] [id number] [place] [address] Aug, [facility] [address] [id number] [place] [address] Aug, [facility] [place] [facility] [address] [id number] [place] [address] Jul, [facility] [place] [facility] [address] [id number] [place] [address] Jul, [facility] [place] [facility] [address] [id number] [place] [address] May, [facility] [place] [facility] [address] [id number] [place] [address] May, [facility] [place] [facility] [address] [id number] [place] [address] Apr, [facility] [place] [facility] [address] [id number] [place] [address] Apr, [facility] [place] [facility] [address] [id number] [place] [address] Mar, [facility] [place] [facility] [address] [id number] [place] [address] Mar, [facility] [place] [facility] [address] [id number] [place] [address] Mar, [facility] [place] [facility] [address] [id number] [place] [address] Mar, [facility] [place] [facility] [address] [id number] [place] [address] Mar, [facility] [place] [facility] [address] [id number], [place] [address] Mar, [facility] [place] [facility] [address] [id number], [place] [address] Mar, [facility] [place] [facility] [address] [id number], [place] [address] Mar, [facility] [place] [facility] [address] [facility] [id number], [place] [address] Mar, [facility] [place] [facility] [address] [id number], [place] [address] Mar, [facility] [place] [facility] [address] [id number], [place] [address] Mar, [facility] [place] [facility] [address] [id number], [place] [address] Mar, [facility] [place] [facility] [address] [id number], [place] [address] Mar, [facility] [place] [facility] [address] [id number], [place] [address] 13 Feb, 2012 [facility] [address] [address] 06 Feb, 2012 [facility] [address] [address] Feb, [facility] [address] [address] Jan, [facility] [address] [address] Jan, [facility] [address] [place] [address] October, [facility] [address] [place] [address] Sep, [facility] [address] [place] [address] Sep, [facility] [address] [address] Aug, [facility] [address] [place] [address] Jul, [facility] [address] [address] Jul, [facility] [address] [address] Jul, [facility] [address] [address] Jul, [facility] [address] [address] Jun, [facility] [address] [address] May, IMMUNIZATIONS No Known Immunizations SOCIAL HISTORY Never Assessed REASON FOR VISIT Waiting for call back PLAN OF CARE VITAL SIGNS MEDICATIONS Unknown Medications RESULTS No Results PROCEDURES No Known procedures INSTRUCTIONS MEDICATIONS ADMINISTERED No Known Medications MEDICAL (GENERAL) HISTORY Type Description Date Medical History Type II DM Medical History Eye exam 10/2014 No retinopathy Medical History diabetes
--- OUTSIDE RECORDS SUMMARY | 2018-12-10 05:37 | XMS REPORT ---
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 Active Problem Diabetes mellitus without mention of complication, type II or unspecified type, not stated as uncontrolled 250.00 Active Problem DTAP TEST V06.1 Active Problem KINRIX (DTAP/IPV) DX V06.3 Active Problem Loss of weight 783.21 Active Problem Dysuria 788.1 Active Problem Dermatophytosis of foot 110.4 Active Problem Acute upper respiratory infections of unspecified site 465.9 Active Problem Diabetes mellitus without mention of complication, type II or unspecified type, uncontrolled 250.02 Active Medications No Known Medications Results No Known Results Summary Purpose eClinicalWorks Submission
--- OUTSIDE RECORDS SUMMARY | 2018-12-10 05:37 | XMS REPORT ---
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 Active 928997013 Problem DTAP TEST V06.1 Active Problem KINRIX (DTAP/IPV) DX V06.3 Active Problem Type 2 diabetes mellitus without complications E11.9 Active 886547115 Problem Type 2 diabetes mellitus with hyperglycemia E11.65 Active 329739424750187 Problem Screening examination for pulmonary tuberculosis V74.1 Active 558929427 Problem POLIO (IPV) DX V04.0 Active 945851316 Problem Hyperlipemia E78.5 Active 97902959 Problem MMR DX V06.4 Active Problem Loss of weight 783.21 Active 879049110 Problem Dysuria 788.1 Active 38993149 Assessment Type 2 diabetes mellitus without complications E11.9 Feb, Active 556138777 Problem Acute upper respiratory infections of unspecified site 465.9 Active 47116314 Problem Abdominal pain, left upper quadrant 789.02 Active 817663894 Problem Proteinuria 791.0 Active 19649477 Problem Dermatophytosis of foot 110.4 Active 7320840 Problem Need for prophylactic vaccination and inoculation, Influenza V04.81 Active 075073682 Problem Diabetes mellitus without mention of complication, type II or unspecified type, uncontrolled 250.02 Active 897263293 Problem Diabetes mellitus without mention of complication, type II or unspecified type, not stated as uncontrolled 250.00 Active 820785326 ALLERGIES Substance Reaction Event Type Date Status N.K.D.A. Unknown Non Drug Allergy Feb, Unknown SOCIAL HISTORY No smoking Hx information available PLAN OF CARE VITAL SIGNS Height 67 in 2016-02-20 Weight 204 lbs 2016-02-20 Heart Rate 80 bpm 2016-02-20 Respiratory Rate 16 2016-02-20 BMI 31.95 kg/m2 2016-02-20 Blood pressure systolic 115 mmHg 2016-02-20 Blood pressure diastolic 82 mmHg 2016-02-20 MEDICATIONS Medication Instructions Dosage Frequency Start Date End Date Duration Status Xigduo XR 10-1000 MG Orally Once a day 1 tablet 24h October, 30 day(s) Active GlipiZIDE 5MG Orally twice a day 2 tablet 12h Active Lipitor 40 MG Orally Once a day 1 tablet 24h Jul, 90 Active Metformin HCl 500MG Orally Once a day 2 tablet 24h Active RESULTS Name Result Date Reference Range A1C (IN HOUSE) 2016-02-20 A1C IN HOUSE 7.2 4.3 - 5.6 % Previous A1c 6.6 Lot [id number] Exp date 11/2015 PROCEDURES Procedure Date Ordered Related Diagnosis Body Site GLYCATED HEMOGLOBIN TEST Feb 20, 2016 Office Visit, Est Pt., Level 3 Feb 20, 2016 IMMUNIZATIONS No Known Immunizations
--- OUTSIDE RECORDS SUMMARY | 2018-12-10 05:37 | XMS REPORT ---
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 Active Problem Type 2 diabetes mellitus with hyperglycemia E11.65 Active Problem Hyperlipemia E78.5 Active Problem Type 2 diabetes mellitus without complications E11.9 Active Problem POLIO (IPV) DX V04.0 Active Problem DTAP TEST V06.1 Active Problem MMR DX V06.4 Active Problem Screening examination for pulmonary tuberculosis V74.1 Active Problem Acute upper respiratory infections of unspecified site 465.9 Active Problem Loss of weight 783.21 Active Problem Diabetes mellitus without mention of complication, type II or unspecified type, uncontrolled 250.02 Active Problem Abdominal pain, left upper quadrant 789.02 Active Problem Dysuria 788.1 Active Problem Proteinuria 791.0 Active Problem Dermatophytosis of foot 110.4 Active Problem Need for prophylactic vaccination and inoculation, Influenza V04.81 Active Medications Medication Code System Code Instructions Start Date End Date Status Dosage GlipiZIDE [facility] [address]-28 5MG Orally twice a day 2 tablet Metformin HCl [facility] [address]-96 500MG Orally Once a day 2 tablet Lipitor [facility] [address]-73 40 MG Orally Once a day Jul 31, 2015 1 tablet Xigduo XR [facility] [address]-96 10-1000 MG Orally Once a day 2015 Jul 05, 2016 1 tablet Results No Known Results Summary Purpose eClinicalWorks Submission
--- OUTSIDE RECORDS SUMMARY | 2018-12-10 05:37 | XMS REPORT ---
Author Author CHIVO JOLLY Organization [employer] Address Unknown Phone Unavailable Care Team Providers Care Court Operations Clerk Name Role Phone CHIVO JOLLY CP Unavailable [...] vaccination and inoculation, Influenza V04.81 Active Medications No Known Medications Results No Known Results Summary Purpose eClinicalWorks Submission
--- OUTSIDE RECORDS SUMMARY | 2018-12-10 05:37 | XMS REPORT ---
Author Author CHIVO JOLLY [facility] eClinical[employer] Address Unknown Phone Unavailable Care Team Providers Care Petroleum Analyst Name Role Phone CHIVO JOLLY CP Unavailable Allergies, Adverse Reactions, Alerts Substance Reaction Event Type N.K.D.A. Info Not Available Non Drug Allergy Problems Problem Type Condition Code Onset Dates [...] Active Problem KINRIX (DTAP/IPV) DX V06.3 Active Assessment Carpal tunnel syndrome G56.00 Active Problem Loss of weight 783.21 Active Problem Dysuria 788.1 Active Assessment Type 2 diabetes mellitus with complication E11.8 Active Problem Dermatophytosis of foot 110.4 Active Problem Acute upper respiratory infections of unspecified site 465.9 Active Problem Diabetes mellitus without mention of complication, type II or unspecified type, uncontrolled 250.02 Active Medications Medication Code System Code Instructions Start Date End Date Status Dosage Metformin HCl [facility] [address]-67 500 MG Orally Twice a day 1 tablet with meals GlipiZIDE [facility] 43566021379 5MG TAKE TWO TABLETS BY MOUTH TWICE DAILY. Procedures Procedure Coding System Code Date LIPID PANEL CPT-4 13630 Jul 29, 2015 GLYCATED HEMOGLOBIN TEST CPT-4 07233 Jul 29, 2015 COMPREHEN METABOLIC PANEL CPT-4 72773 Jul 29, 2015 MICROALBUMIN, QUANTITATIVE CPT-4 99826 Jul 29, 2015 Office Visit, Est Pt., Level 3 CPT-4 22056 Jul 29, 2015 MICROALBUMIN, SEMIQUANT CPT-4 04422 Jul 29, 2015 ASSAY OF URINE CREATININE CPT-4 64188 Jul 29, 2015 VENIPUNCT, ROUTINE* [facility]-4 79696 Jul 29, 2015 Vital Signs Date/Time: Jul 29, 2015 Temperature 98.3 F Weight 206.8 lbs Height 67 in BMI 32.39 Index Blood Pressure Diastolic 82 mmHg Blood Pressure Systolic 134 mmHg Cardiac Monitoring Heart Rate 84 bpm Results Name Result Date Reference Range Unit Abnormality Flag MICROALBUMIN, URINE (IN HOUSE) ----Lot # [id number] ----Control abnormal 20150730 ----Exp date 20150730 ----Clarity clear 20150730 ----Color yellow 20150730 ----ALB 150 mg/L 20150730 ----CRE 300 mg/dL 20150730 ----A:C (IN HOUSE) 30-300 mg/g 20150730 ----Control normal 20150730 ----MICROALBUMIN Abnormal 20150730 ----Exp date Mar 201620150730 ----Lot # [id number] MICROALBUMIN/CREATININE RATIO, URINE ----Creatinine, Urine 61.8 46876378 24.0-392.0 mg/dL ----Microalb/Creat Ratio 298.5 34886013 0.0-30.0 mg/g creat H ----Microalbumin, Urine 184.5 [id number] 0.0-17.0 ug/mL H ROUTINE VENIPUNCTURE A1C (IN HOUSE) ----Exp date 20150730 ----Previous A1c 8.2 20150730 ----Lot [id number] 20150730 ----A1C IN HOUSE 6.6 20150730 4.3 - 5.6 % LIPID PANEL ----HDL Cholesterol 37 20150729 >39 mg/dL L ----Triglycerides 431 01994102 0-149 mg/dL H ----Cholesterol, Total 256 21690655 100-199 mg/dL H CMP ----Creatinine, Serum 0.98 15818516 0.76-1.27 mg/dL ----BUN 19 27016277 6-20 mg/dL ----eGFR If Africn Am 113 95510991 >59 mL/min/1.73 ----eGFR If NonAfricn Am 98 59542417 >59 mL/min/1.73 ----Sodium, Serum 139 13313551 134-144 mmol/L ----BUN/Creatinine Ratio 19 20150729 8-19 ----Chloride, Serum 100 66061484 97-108 mmol/L ----Potassium, Serum 4.4 46116810 3.5-5.2 mmol/L ----Carbon Dioxide, Total 23 46686174 18-29 mmol/L ----Protein, Total, Serum 7.0 85286250 6.0-8.5 g/dL ----Calcium, Serum 9.9 62149053 8.7-10.2 mg/dL ----Globulin, Total 2.5 87784190 1.5-4.5 g/dL ----Albumin, Serum 4.5 38453220 3.5-5.5 g/dL ----Bilirubin, Total <0.2 71772027 0.0-1.2 mg/dL ----Glucose, Serum 179 92432205 65-99 mg/dL H ----A/G Ratio 1.8 81949852 1.1-2.5 ----ALT (SGPT) 21 96313821 0-44 IU/L ----Alkaline Phosphatase, S 63 24068082 39-117 IU/L ----AST (SGOT) 15 56546611 0-40 IU/L Summary Purpose eClinicalWorks Submission
--- OUTSIDE RECORDS SUMMARY | 2018-12-10 05:37 | XMS REPORT ---
Author Author CHIVO JOLLY Organization [employer] Address Unknown Phone Unavailable Care Team Providers Care Migratory Farm Hand Name Role Phone CHIVO JOLLY CP Unavailable [...] Start Date End Date Status Dosage GlipiZIDE [facility] 70824468928 5MG TAKE TWO TABLETS BY MOUTH TWICE DAILY. Results No Known Results Summary Purpose eClinicalWorks Submission
--- OUTSIDE RECORDS SUMMARY | 2018-12-10 05:37 | XMS REPORT ---
Author Author CHIVO JOLLY [facility] eClinicalWorks Address Unknown Phone Unavailable Care Team Providers Care Perishable Fruit Inspector Name Role Phone CHIVO JOLLY CP Unavailable [...] Instructions Start Date End Date Status Dosage Xigduo XR [facility] [address]-49 10-1000 MG Orally Once a day 2015 1 tablet Results No Known Results Summary Purpose eClinicalWorks Submission
--- OUTSIDE RECORDS SUMMARY | 2018-12-10 05:37 | XMS REPORT ---
Author Author CHIVO JOLLY Organization [facility] Address [address] [place] [address] Care Team Providers Care Front End Architect Name Role Phone CHIVO JOLLY Unavailable PROBLEMS Type Condition ICD9-CM Code MAD88-AX Code Onset Dates Condition Status SNOMED Code Problem Loss of weight 783.21 Active 880025357 Problem Diabetes mellitus without mention of complication, type II or unspecified type, uncontrolled 250.02 Active 530124675 Problem Acute upper respiratory infections of unspecified site 465.9 Active 05693984 Problem Seasonal allergic rhinitis, unspecified allergic rhinitis trigger J30.2 Active 529899092 Problem Type 2 diabetes mellitus without complications E11.9 Active 112191191 Problem Dermatophytosis of foot 110.4 Active 0280154 Problem Diabetes mellitus without mention of complication, type II or unspecified type, not stated as uncontrolled 250.00 Active 263986954 Problem Type 2 diabetes mellitus with hyperglycemia E11.65 Active 559509893575069 Problem Hyperlipemia E78.5 Active 16618163 Problem Screening examination for pulmonary tuberculosis V74.1 Active 864018196 Problem KINRIX (DTAP/IPV) DX V06.3 Active Problem 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 Active 355284182 Problem MMR DX V06.4 Active Problem POLIO (IPV) DX V04.0 Active 722612670 Problem Proteinuria 791.0 Active 17148287 Problem DTAP TEST V06.1 Active Problem Abdominal pain, left upper quadrant 789.02 Active 833242505 Problem Need for prophylactic vaccination and inoculation, Influenza V04.81 Active 694473103 Problem Dysuria 788.1 Active 39519397 ALLERGIES No Known Allergies ENCOUNTERS Encounter Location Date Diagnosis [facility] [address] [facility] [id number] [address] Jul, Type 2 diabetes mellitus with hyperglycemia E11.65 [facility] [address] [address] Jun, Hyperlipemia E78.5 [facility] [id number] [place] [address] Aug, [facility] [address] [address] Jul, Seasonal allergic rhinitis, unspecified allergic rhinitis trigger J30.2 [facility] [address] [place] [address] Jun, Type 2 diabetes mellitus without complications E11.9 [facility] [id number] [place] [address] May, Type 2 diabetes mellitus with hyperglycemia E11.65 and Hyperlipemia E78.5 [facility] [id number] [place] [address] Mar, [facility] [address] [place] [address] Mar, [facility] [id number] [place] [address] Feb, Type 2 diabetes mellitus without complications E11.9 [facility] [address] [place] [address] Feb, [facility] [id number] [place] [address] October, Type 2 diabetes mellitus with hyperglycemia E11.65 [facility] [address] [address] Aug, Hyperlipemia E78.5 [facility] [address] [place] [address] 10 Jul, 2015 Hyperlipemia E78.5 [facility] [address] [address] 08 Jul, 2015 Type 2 diabetes mellitus with complication E11.8 and Carpal tunnel syndrome G56.00 [facility] [id number] [address] Jul, [facility] [id number] [place] [address] Jul, [facility] [id number] [place] [address] Feb, [facility] [id number] [place] [address] Nov, [facility] [id number] [place] [address] October, Diabetes mellitus without mention of complication, type II or unspecified type, not stated as uncontrolled 250.00 and Proteinuria 791.0 [facility] [id number] [place] [address] Sep, [facility] [id number] [place] [address] Sep, [facility] [id number] [place] [address] Sep, [facility] [id number] [place] [address] Sep, [facility] [address] [address] Aug, [facility] [id number] [address] Aug, [facility] [address] [address] Aug, [facility] [id number] [address] Aug, [facility] [address] [address] Apr, [facility] [id number] [place] [address] Apr, [facility] [place] [facility] [address] [id number] [place] [address] Mar, [facility] [place] [facility] [address] [id number] [place] [address] Mar, [facility] [place] [facility] [address] [id number] [place] [address] Mar, [facility] [place] [facility] [address] [id number] [place] [address] Mar, [facility] [place] [facility] [address] [id number] [place] [address] Mar, [facility] [place] [facility] [address] [id number] [place] [address] Feb, [facility] [place] [facility] [address] [id number] [place] [address] Feb, [facility] [place] [facility] [address] [id number] [place] [address] Feb, [facility] [place] [facility] [address] [id number] [place] [address] Feb, [facility] [place] [facility] [address] [id number] [place] [address] Dec, [facility] [place] [facility] [address] [id number] [place] [address] Dec, [facility] [place] [facility] [address] [id number] [place] [address] Dec, [facility] [place] [facility] [address] [id number] [place] [address] Nov, [facility] [place] [facility] [address] [id number] [place] [address] Nov, [facility] [place] [facility] [address] [id number] [place] [address] October, [facility] [place] [facility] [address] [id number] [place] [address] October, [facility] [place] [facility] [address] [id number] [place] [address] Sep, [facility] [place] [facility] [address] [id number] [place] [address] Sep, [facility] [place] [facility] [address] [id number] [place] [address] Sep, [facility] [place] [facility] [address] [id number] [place] [address] Sep, [facility] [place] [facility] [address] [id number] [place] [address] Sep, [facility] [place] [facility] [address] [id number] [place] [address] Aug, [facility] [place] [facility] [address] [id number] [place] [address] Aug, [facility] [place] [facility] [address] [id number] [place] [address] Mar, [facility] [place] [facility] [address] [id number] [place] [address] Mar, [facility] [place] [facility] [address] [id number] [place] [address] Jan, [facility] [place] [facility] [address] [id number] [place] [address] Jan, [facility] [place] [facility] [address] [id number] [place] [address] Dec, [facility] [place] [facility] [address] [id number] [place] [address] Dec, [facility] [place] [facility] [address] [id number] [place] [address] Nov, [facility] [place] [facility] [address] [id number] [place] [address] 17 Nov, 2012 [facility] [address] [id number] [place] [address] 13 Nov, 2012 [facility] [place] [facility] [address] [id number] [place] [address] 25 Sep, 2012 [facility] [place] [facility] [address] [id number] [place] [address] Sep, [facility] [place] [facility] [address] [id number] [place] [address] Aug, [facility] [place] [facility] [address] [id number] [place] [address] Aug, [facility] [place] [facility] [address] [id number] [place] [address] Aug, [facility] [place] [facility] [id number] [place] [address] Jul, [facility] [place] [facility] [address] [id number] [place] [address] Jul, [facility] [place] [facility] [address] [place] [address] May, [facility] [place] [facility] [address] [facility] [id number] [place] [address] May, [facility] [place] [facility] [address] [facility] [id number] [place] [address] Apr, [facility] [place] [facility] [address] [id number] [address] Apr, [facility] [place] [facility] [address] [id number] [place] [address] Mar, [facility] [place] [facility] [address] [id number] [place] [address] Mar, [facility] [place] [facility] [address] [facility] [id number] [address] Mar, [facility] [place] [facility] [address] [id number] [place] [address] Mar, [facility] [place] [facility] [address] [id number] [place] [address] Mar, [facility] [place] [facility] [address] [id number] [place] [address] Mar, [facility] [place] [facility] [address] [id number] [place] [address] Mar, [facility] [place] [facility] [address] [id number] [place] [address] Mar, [facility] [place] [facility] [address] [id number] [place] [address] Mar, [facility] [place] [facility] [address] [id number] [place] [address] Mar, [facility] [place] [facility] [address] [id number] [place] [address] Mar, [facility] [place] [facility] [address] [id number] [place] [address] Mar, [facility] [place] [facility] [address] [id number] [place] [address] Mar, [facility] [place] [facility] [address] [id number] [place] [address] 13 Feb, 2012 [facility] [place] [facility] [address] [id number] [place] [address] 06 Feb, 2012 [facility] [place] [facility] [address] [id number] [place] [address] 04 Feb, 2012 [facility] [place] [facility] [address] [id number] [place] [address] 16 Jan, 2012 [facility] [place] [facility] [address] [id number] [place] [address] 13 Jan, 2012 [facility] [place] [facility] [address] [id number] [address] October, [facility] [id number] [address] Sep, [facility] [address] [address] Sep, [facility] [address] [address] Aug, [facility] [address] [address] Jul, [facility] [address] [address] Jul, [facility] [id number] [place] [address] Jul, [facility] [address] [address] Jul, [facility] [address] [address] Jun, [facility] [address] [address] May, IMMUNIZATIONS No Known Immunizations SOCIAL HISTORY Never Assessed REASON FOR VISIT Diabetes- Chad Ta RN PLAN OF CARE Activity Details Follow Up 3 Months Reason:DM VITAL SIGNS Height 67 in 2017-08-18 Weight 206 lbs 2017-08-18 Temperature 98.0 degrees Fahrenheit 2017-08-18 Heart Rate 78 bpm 2017-08-18 Respiratory Rate 18 2017-08-18 BMI 32.26 kg/m2 2017-08-18 Blood pressure systolic 128 mmHg 2017-08-18 Blood pressure diastolic 74 mmHg 2017-08-18 MEDICATIONS Medication Instructions Dosage Frequency Start Date End Date Duration Status Metformin HCl 500MG Orally twice a day 2 tablet 12h 90 days Active Test strips ... as directed Jul, Active GlipiZIDE 5 mg Orally twice a day 2 tablet 12h 90 days Active Pioglitazone HCl 45 MG Orally Once a day 1 tablet 24h Jul, 90 days Active Lipitor 40 mg Orally Once a day 1 tablet 24h 10 Jul, 2015 90 days Active Glucometer ... as directed Jul, Active RESULTS Name Result Date Reference Range A1C (IN HOUSE) 2017-08-18 A1C IN HOUSE 10.0 4.3 - 5.6 % Previous A1c 6.8 Lot [id number] Exp date 04/2019 PROCEDURES Procedure Date Ordered Result Body Site GLYCATED HEMOGLOBIN TEST Aug 18, 2017 COMPREHEN METABOLIC PANEL Aug 18, 2017 LIPID PANEL Aug 18, 2017 INSTRUCTIONS MEDICATIONS ADMINISTERED No Known Medications MEDICAL (GENERAL) HISTORY Type Description Date Medical History Type II DM Medical History Eye exam 10/2014 No retinopathy
--- NOTE | 2018-12-10 05:38 | ED Chest Pain ---
General Chief Complaint: Chest Pain Stated Complaint: CHEST PAIN Nursing Triage Note: pt states chest pain started 1 hr ago with soa, pt states he has been coughing the past couple days, pain increases with cough Nursing Sepsis Screen: No Definite Risk Source: patient, family Exam Limitations: no limitations History of Present Illness Date Seen by Provider: Dec 10, 2018 Time Seen by Provider: 05:35 Initial Comments This 43-year-old male presents with chest pain began approximately an hour prior to presentation emergency department. The patient's chest pain is described as sharp in nature and made worse with a cough. He has had no nausea but did have diaphoresis with the onset of his chest pain. The patient denies history of known coronary artery disease. The patient has diabetes. He uses oral hypoglycemics. He suffers from hyper-lipidemia. He smokes half pack per day. There is no family history of heart disease. Allergies and Home Medications Allergies Coded Allergies: No Known Drug Allergies (Unverified , 12/10/18) Patient Home Medication List Home Medication List Reviewed: Yes Review of Systems Review of Systems Constitutional: no symptoms reported, diaphoresis EENTM: No Symptoms Reported Respiratory: See HPI, Cough Cardiovascular: See HPI, Chest Pain, Irregular Heart Rate, Lightheadedness, Palpitations, Syncope Gastrointestinal: Denies Abdominal Pain, Denies Nausea Genitourinary: No Symptoms Reported Musculoskeletal: no symptoms reported Skin: no symptoms reported; No rash Psychiatric/Neurological: No Symptoms Reported Endocrine: No Symptoms Reported Hematologic/Lymphatic: No Symptoms Reported Past Gvpwuge-Lohtqk-Lcezux Hx Past Med/Social Hx: Reviewed Nursing Past Med/Soc Hx Patient Social History Alcohol Use: Denies Use Recreational Drug Use: No Smoking Status: Current Everyday Smoker Type Used: Cigars 2nd Hand Smoke Exposure: No Recent Foreign Travel: No Contact w/Someone Who Travel: No Recent Infectious Disease Expo: No Recent Hopitalizations: No Physical Abuse: No Sexual Abuse: No Mistreated: No Fear: No Seasonal Allergies Seasonal Allergies: No Past Medical History Surgeries: No Respiratory: No Cardiac: No Neurological: No Genitourinary: No Gastrointestinal: No Musculoskeletal: No Endocrine: Yes Diabetes, Non-Insulin dep HEENT: No Cancer: No Psychosocial: Yes Depression Integumentary: No Blood Disorders: No Adverse Reaction/Blood Tranf: No Physical Exam Vital Signs Vital Signs - First Documented 12/10/18 12/10/18 05:23 05:41 Temp 98.9 Pulse 70 Resp 22 B/P (MAP) 133/83 (100) Pulse Ox 95 O2 Delivery Room Air O2 Flow Rate 4.00 Capillary Refill : Less Than 3 Seconds Height, Weight, BMI Height: 5'7.00" Weight: 200lbs. oz. 90.546778ru; BMI Method:Stated General Appearance: WD/WN, Mild Distress HEENT: Normal ENT Inspection Neck: Normal Inspection Respiratory: Lungs Clear, Normal Breath Sounds, No Respiratory Distress Cardiovascular: No JVD, No Murmur Gastrointestinal: Normal Bowel Sounds, Non Tender, Soft Extremity: Normal Capillary Refill, Normal Inspection, Normal Range of Motion Neurologic/Psychiatric: Oriented x3, No Motor/Sensory Deficits, Normal Mood/Affect Skin: Normal Color, Warm/Dry Progress/Results/Core Measures Results/Orders Lab Results Laboratory Tests Test 12/10/18 05:14 Range/Units White Blood Count 6.8 4.3-11.0 10^3/uL Red Blood Count 5.17 4.35-5.85 10^6/uL Hemoglobin 15.8 13.3-17.7 G/DL Hematocrit 45 40-54 % Mean Corpuscular Volume 87 80-99 FL Mean Corpuscular Hemoglobin 31 25-34 PG Mean Corpuscular Hemoglobin Concent 35 32-36 G/DL Red Cell Distribution Width 11.9 10.0-14.5 % Platelet Count 273 130-400 10^3/uL Mean Platelet Volume 9.8 7.4-10.4 FL Neutrophils (%) (Auto) 49 42-75 % Lymphocytes (%) (Auto) 38 12-44 % Monocytes (%) (Auto) 8 0-12 % Eosinophils (%) (Auto) 4 0-10 % Basophils (%) (Auto) 1 0-10 % Neutrophils # (Auto) 3.3 1.8-7.8 X 10^3 Lymphocytes # (Auto) 2.6 1.0-4.0 X 10^3 Monocytes # (Auto) 0.6 0.0-1.0 X 10^3 Eosinophils # (Auto) 0.3 0.0-0.3 10^3/uL Basophils # (Auto) 0.1 0.0-0.1 10^3/uL Prothrombin Time 11.8 L 12.2-14.7 SEC INR Comment 0.8 0.8-1.4 Activated Partial Thromboplast Time 27 24-35 SEC Sodium Level 133 L 135-145 MMOL/L Potassium Level 3.9 3.6-5.0 MMOL/L Chloride Level 94 L 98-107 MMOL/L Carbon Dioxide Level 23 21-32 MMOL/L Anion Gap 16 H 5-14 MMOL/L Blood Urea Nitrogen 19 H 7-18 MG/DL Creatinine 0.71 0.60-1.30 MG/DL Estimat Glomerular Filtration Rate > 60 BUN/Creatinine Ratio 27 Glucose Level 306 H 70-105 MG/DL Calcium Level 9.2 8.5-10.1 MG/DL Corrected Calcium 9.0 8.5-10.1 MG/DL Magnesium Level 1.7 L 1.8-2.4 MG/DL Total Bilirubin 0.4 0.1-1.0 MG/DL Aspartate Amino Transf (AST/SGOT) 14 5-34 U/L Alanine Aminotransferase (ALT/SGPT) 20 0-55 U/L Alkaline Phosphatase 75 40-136 U/L Myoglobin < 21.0 10.0-92.0 NG/ML Troponin T < 6 <=15 NG/L Total Protein 7.0 6.4-8.2 GM/DL Albumin 4.2 3.2-4.5 GM/DL My Orders Orders - RAVINDRA, MAYLIN Nichols MD Cbc With Automated Diff (12/10/18 05:32) Magnesium (12/10/18 05:32) Chest 1 View Ap/Pa Only (12/10/18 05:32) Ekg Tracing (12/10/18 05:32) Comprehensive Metabolic Panel (12/10/18 05:32) Myoglobin Serum (12/10/18 05:32) Protime With Inr (12/10/18 05:32) Partial Thromboplastin Time (12/10/18 05:32) O2 (12/10/18 05:32) Monitor-Rhythm Ecg Trace Only (12/10/18 05:32) Lipid Panel (12/11/18 06:00) Nitroglycerin 0.4 Mg Btl 25's (Nitrostat (12/10/18 05:45) Ed Iv/Invasive Line Start (12/10/18 05:32) Troponin T (12/10/18 05:32) Ekg Tracing (12/10/18 05:57) Troponin T (12/10/18 05:57) Lidocaine 2% Viscous 15 Ml (Xylocaine Vi (12/10/18 06:00) Antacid Suspension (Mylanta Suspension (12/10/18 06:00) Medications Given in ED Current Medications Medications Dose Ordered Sig/Brian Route Start Time Stop Time Status Last Admin Dose Admin Al Hydrox/Mg Hydrox/Simethicone 30 ml ONCE ONCE PO 12/10/18 06:00 12/10/18 06:01 DC 12/10/18 06:04 30 ML Lidocaine HCl 5 ml ONCE ONCE PO 12/10/18 06:00 12/10/18 06:01 DC 12/10/18 06:04 5 ML Nitroglycerin 0.4 mg UD PRN SL 12/10/18 05:45 12/10/18 06:05 DC 12/10/18 06:05 0.4 MG Vital Signs/I&O 12/10/18 12/10/18 05:23 05:41 Temp 98.9 Pulse 70 Resp 22 B/P (MAP) 133/83 (100) Pulse Ox 95 95 O2 Delivery Room Air Nasal Cannula O2 Flow Rate 4.00 Blood Pressure Mean: 100 Progress Progress Note : Time: 06:25 Progress Note The patient's chest pain was essentially relieved with 3 nitroglycerin. A GI cocktail was also administered. Patient was placed on oxygen. The patient's first troponin was normal. His first EKG as well as his second demonstrated questionable hyperacute T waves over the anterior precordium. I discussed the patient's presentation with Dr. Simon. He asked the patient be sent [place] for cardiac catheterization. Departure Impression Primary Impression: Chest pain Qualified Codes: I25.9 - Chronic ischemic heart disease, unspecified Disposition: 02 XFER SHT-TRM HOSP Condition: Improved Admissions Decision to Admit Reason: Admit from ER (General) Decision to Admit/Date: Dec 10, 2018 Time/Decision to Admit Time: 06:29 Transfer Time Spoke to Accepting Phy: 06:[address] Simon. Transfer Time: 06:30 Transfer Facility: [facility] Method of Transfer: EMS Departure-Patient Inst. Referrals: NO,LOCAL PHYSICIAN (PCP) Primary Care Physician MAYLIN WAITE MD Dec 10, 2018 05:38
--- OUTSIDE RECORDS SUMMARY | 2018-12-10 05:38 | XMS REPORT ---
Author Author CHIVO JOLLY [facility] Address [address] [place] [address] Care Team Providers Care Contractor Buyer Name Role Phone CHIVO JOLLY Unavailable PROBLEMS Type Condition ICD9-CM Code JJH83-[place] Code Onset Dates Condition Status SNOMED Code Problem Loss of weight 783.21 Active 773091811 Problem Diabetes mellitus without mention of complication, type II or unspecified type, uncontrolled 250.02 Active 590306726 Problem Acute upper respiratory infections of unspecified site 465.9 Active 78450267 Problem Seasonal allergic rhinitis, unspecified allergic rhinitis trigger J30.2 Active 254199683 Problem Type 2 diabetes mellitus without complications E11.9 Active 765549186 Problem Dermatophytosis of foot 110.4 Active 0380500 Problem Diabetes mellitus without mention of complication, type II or unspecified type, not stated as uncontrolled 250.00 Active 433576079 Problem Type 2 diabetes mellitus with hyperglycemia E11.65 Active 571938966709043 Problem Hyperlipemia E78.5 Active 21238280 Problem Screening examination for pulmonary tuberculosis V74.1 Active 820000920 Problem KINRIX (DTAP/IPV) DX V06.3 Active Problem 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 Unknown Non Drug Allergy Jun, Unknown SOCIAL HISTORY No smoking Hx information available PLAN OF CARE Activity Details Follow Up 3 Months Reason:DM and fasting labs. VITAL SIGNS Height 67 in 2016-06-22 Weight 195.7 lbs 2016-06-22 Temperature 97.3 degrees Fahrenheit 2016-06-22 Heart Rate 82 bpm 2016-06-22 Respiratory Rate 18 2016-06-22 BMI 30.65 kg/m2 2016-06-22 Blood pressure systolic 118 mmHg 2016-06-22 Blood pressure diastolic 78 mmHg 2016-06-22 MEDICATIONS Medication Instructions Dosage Frequency Start Date End Date Duration Status Lipitor 40 MG Orally Once a day 1 tablet 24h 10 Jul, 2015 90 days Active Xigduo XR 10-1000 MG Orally Once a day 1 tablet 24h 13 Oct, 2015 90 days Active Metformin HCl 500MG Orally Once a day 2 tablet 24h 90 days Active GlipiZIDE 5MG Orally twice a day 2 tablet 12h 90 days Active RESULTS Name Result Date Reference Range MICROALBUMIN, URINE (IN HOUSE) 2016-06-22 MICROALBUMIN abnormal Lot # [id number] Exp date 04/2017 Clarity clear Color yellow ALB 150 mg/L CRE 300 mg/dL A:C (IN HOUSE) 30-300 mg/g* Control normal Control Lot # Exp date A1C (IN HOUSE) 2016-06-22 A1C IN HOUSE 6.8 4.3 - 5.6 % Previous A1c 7.2 Lot [id number] Exp date 03/2018 MICROALBUMIN/CREATININE RATIO, URINE 2016-06-22 Creatinine, Urine 156.3 Not Estab. Microalbumin, Urine 999.8 Not Estab. Microalb/Creat Ratio 639.7 0.0-30.0 PROCEDURES Procedure Date Ordered Related Diagnosis Body Site GLYCATED HEMOGLOBIN TEST Jun 22, 2016 MICROALBUMIN, SEMIQUANT Jun 22, 2016 MICROALBUMIN, QUANTITATIVE Jun 22, 2016 ASSAY OF URINE CREATININE Jun 22, 2016 Office Visit, Est Pt., Level 3 Jun 22, 2016 IMMUNIZATIONS No Known Immunizations
--- OUTSIDE RECORDS SUMMARY | 2018-12-10 05:38 | XMS REPORT ---
Author Author CHIVO JOLLY [facility] Address [address] [place] [address] Care Team Providers Care Hand Molder And Caster Name Role Phone CHIVO JOLLY Unavailable PROBLEMS Type Condition ICD9-CM Code NNE86-MY Code Onset Dates Condition Status SNOMED Code Problem KINRIX (DTAP/IPV) DX V06.3 Active Problem POLIO (IPV) DX V04.0 Active 723231549 Problem DTAP TEST V06.1 Active Problem Seasonal allergic rhinitis, unspecified allergic rhinitis trigger J30.2 Active 264762787 Problem Type 2 diabetes mellitus without complications E11.9 Active 246233310 Problem MMR DX V06.4 Active Problem Screening examination for pulmonary tuberculosis V74.1 Active 510005168 Problem Type 2 diabetes mellitus with hyperglycemia E11.65 Active 745544995216015 Problem Hyperlipemia E78.5 Active 78090339 Problem Dysuria 788.1 Active 09180776 Problem Dermatophytosis of foot 110.4 Active 1556980 Problem Acute upper respiratory infections of unspecified site 465.9 Active 80145578 Problem Loss of weight 783.21 Active 981219381 Problem Proteinuria 791.0 Active 65832917 Problem Need for prophylactic vaccination and inoculation, Influenza V04.81 Active 886434187 Problem Diabetes mellitus without mention of complication, type II or unspecified type, uncontrolled 250.02 Active 781012732 Problem Diabetes mellitus without mention of complication, type II or unspecified type, not stated as uncontrolled 250.00 Active 256408538 Problem Abdominal pain, left upper quadrant 789.02 Active 496250352 Problem 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
--- OUTSIDE RECORDS SUMMARY | 2018-12-10 05:38 | XMS REPORT | Continuity of Care Document ---
Author Organization Unknown Address Unknown Allergies There is no data. Medications There is no data. Problems There is no data. Procedures There is no data. Results Test Result Range CBC - 04/14/18 14:00 WHITE BLOOD CELL COUNT 11.0 Thousand/uL 3.8-10.8 RED BLOOD CELL COUNT 5.59 Million/uL 4.20-5.80 HEMOGLOBIN 17.5 g/dL 13.2-17.1 HEMATOCRIT 49.4 % 38.5-50.0 MCV 88.4 fL 80.0-100.0 MCH 31.3 pg 27.0-33.0 MCHC 35.4 g/dL 32.0-36.0 RDW 11.9 % 11.0-15.0 PLATELET COUNT 335 Thousand/uL 140-400 MPV 9.7 fL 7.5-12.5 ABSOLUTE NEUTROPHILS 7381 cells/uL 6600-9094 ABSOLUTE LYMPHOCYTES 2563 cells/uL 850-3900 ABSOLUTE MONOCYTES 671 cells/uL 200-950 ABSOLUTE EOSINOPHILS 330 cells/uL 15-500 ABSOLUTE BASOPHILS 55 cells/uL 0-200 NEUTROPHILS 67.1 % NRG LYMPHOCYTES 23.3 % NRG MONOCYTES 6.1 % NRG EOSINOPHILS 3.0 % NRG BASOPHILS 0.5 % NRG Encounters ACCT No. Visit Date/Time Discharge Status Pt. Type Provider Facility Loc./Unit Complaint [id number] 12/05/2018 13:30:00 12/05/2018 23:59:59 [facility] Outpatient SANA TSANG [facility] [id number] 04/14/2018 13:00:00 Document Registration
--- OUTSIDE RECORDS SUMMARY | 2018-12-10 05:38 | XMS REPORT ---
Author Author JEANETTE MERRITT Organization [facility] Address [address] [place] [address] Care Team Providers Care Computer Equipment Installer Name Role Phone RENÉJEANETTE Unavailable PROBLEMS Type Condition ICD9-CM Code WOS92-DU Code Onset Dates Condition Status SNOMED Code Problem Loss of weight 783.21 Active 278706631 Problem Diabetes mellitus without mention of complication, type II or unspecified type, uncontrolled 250.02 Active 136315663 Problem Acute upper respiratory infections of unspecified site 465.9 Active 16633171 Problem Seasonal allergic rhinitis, unspecified allergic rhinitis trigger J30.2 Active 579291597 Problem Type 2 diabetes mellitus without complications E11.9 Active 865439482 Problem Dermatophytosis of foot 110.4 Active 0157940 Problem Diabetes mellitus without mention of complication, type II or unspecified type, not stated as uncontrolled 250.00 Active 911564585 Problem Type 2 diabetes mellitus with hyperglycemia E11.65 Active 539047721272678 Problem Hyperlipemia E78.5 Active 85495557 Problem Screening examination for pulmonary tuberculosis V74.1 Active 663913928 Problem KINRIX (DTAP/IPV) DX V06.3 Active Problem 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 Active 670158068 Problem MMR DX V06.4 Active Problem POLIO (IPV) DX V04.0 Active 734672584 Problem Proteinuria 791.0 Active 24795860 Problem DTAP TEST V06.1 Active Problem Abdominal pain, left upper quadrant 789.02 Active 412529984 Problem Need for prophylactic vaccination and inoculation, Influenza V04.81 Active 969508593 Problem Dysuria 788.1 Active 21939471 ALLERGIES No Known Allergies SOCIAL HISTORY Never Assessed PLAN OF CARE Activity Details Follow Up prn Reason: VITAL SIGNS Height 67 in 2016-08-04 Weight 205 lbs 2016-08-04 Temperature 97.8 degrees Fahrenheit 2016-08-04 Heart Rate 80 bpm 2016-08-04 Respiratory Rate 18 2016-08-04 BMI 32.10 kg/m2 2016-08-04 Blood pressure systolic 128 mmHg 2016-08-04 Blood pressure diastolic 72 mmHg 2016-08-04 MEDICATIONS Medication Instructions Dosage Frequency Start Date End Date Duration Status Xigduo XR 10-1000 MG Orally Once a day 1 tablet 24h October, 90 days Active Lipitor 40 MG Orally Once a day 1 tablet 24h 10 Jul, 2015 90 days Active GlipiZIDE 5MG Orally twice a day 2 tablet 12h 90 days Active Metformin HCl 500MG Orally Once a day 2 tablet 24h 90 days Active RESULTS No Results PROCEDURES No Known procedures IMMUNIZATIONS No Known Immunizations MEDICAL (GENERAL) HISTORY Type Description Date Medical History Type II DM Medical History Eye exam 10/2014 No retinopathy
[2018-12-10] MEDS: NITROGLYCERIN 0.4 MG SL TABS BTL 25'S SL PRN ×3 (05:42→06:05)
[2018-12-10 05:48] LABS: HEMATOCRIT 45 % (40-54); HEMOGLOBIN 15.8 G/DL (13.3-17.7); MEAN CORPUSCULAR HEMOGLOBIN 31 PG (25-34); MEAN CORPUSCULAR VOLUME 87 FL (80-99); WHITE BLOOD COUNT 6.8 10^3/uL (4.3-11.0)
[2018-12-10 05:49] LABS: BASOPHILS % (AUTO) 1 % (0-10); EOSINOPHILS # (AUTO) 0.3 10^3/uL (0.0-0.3); EOSINOPHILS % (AUTO) 4 % (0-10); LYMPHOCYTES # (AUTO) 2.6 X 10^3 (1.0-4.0); LYMPHOCYTES % (AUTO) 38 % (12-44); MEAN CORPUSCULAR HGB CONC 35 G/DL (32-36); MEAN PLATELET VOLUME 9.8 FL (7.4-10.4); MONOCYTES # (AUTO) 0.6 X 10^3 (0.0-1.0); MONOCYTES % (AUTO) 8 % (0-12); NEUTROPHILS # (AUTO) 3.3 X 10^3 (1.8-7.8); NEUTROPHILS % (AUTO) 49 % (42-75); PLATELET COUNT 273 10^3/uL (130-400); RED CELL DISTRIBUTION WIDTH 11.9 % (10.0-14.5)
[2018-12-10 05:50] LABS: BASOPHILS # (AUTO) 0.1 10^3/uL (0.0-0.1)
[2018-12-10 05:58] LABS: INR 0.8 (0.8-1.4); PROTHROMBIN TIME PATIENT 11.8 SEC (12.2-14.7)
[2018-12-10] MEDS ORDERED: LIDOCAINE 2% VISCOUS 15 ML UDC PO ONE (06:00)
[2018-12-10] MEDS ORDERED: ANTACID SUSP 30 ML UDC (MYLANTA) PO ONE (06:00)
[2018-12-10 06:17] LABS: BUN/CREATININE RATIO 27; CARBON DIOXIDE 23 MMOL/L (21-32); CHLORIDE 94 MMOL/L (98-107); CREATININE SERUM 0.71 MG/DL (0.60-1.30); GFR ESTIMATED > 60; POTASSIUM 3.9 MMOL/L (3.6-5.0); SODIUM 133 MMOL/L (135-145)
[2018-12-10 06:18] LABS: ALANINE AMINOTRANSFERASE 20 U/L (0-55); ALBUMIN 4.2 GM/DL (3.2-4.5); ALKALINE PHOSPHATASE 75 U/L (40-136); BILIRUBIN,TOTAL 0.4 MG/DL (0.1-1.0); CALCIUM 9.2 MG/DL (8.5-10.1); GLUCOSE 306 MG/DL (70-105); MAGNESIUM 1.7 MG/DL (1.8-2.4)
--- OUTSIDE RECORDS SUMMARY | 2018-12-10 06:41 | XMS REPORT | Continuity of Care Document ---
[...] 9.7 fL 7.5-12.5 ABSOLUTE NEUTROPHILS 7381 cells/uL 1131-5335 ABSOLUTE LYMPHOCYTES 2563 cells/uL 850-3900 ABSOLUTE MONOCYTES 671 cells/uL 200-950 ABSOLUTE EOSINOPHILS 330 cells/uL 15-500 ABSOLUTE BASOPHILS 55 cells/uL 0-200 NEUTROPHILS 67.1 % NRG LYMPHOCYTES 23.3 % NRG MONOCYTES 6.1 % NRG EOSINOPHILS 3.0 % NRG BASOPHILS 0.5 % NRG Encounters ACCT No. Visit Date/Time Discharge Status Pt. Type Provider Facility Loc./Unit Complaint [id number] 12/05/2018 13:30:00 12/05/2018 23:59:59 [facility] Outpatient SANA TSANG [facility] [id number] 04/14/2018 13:00:00 Document Registration
--- NOTE | 2018-12-10 06:43 | Diagnostic Imaging Report ---
EXAMINATION: PA chest at 5:30 AM INDICATION: Chest pain There are no prior studies available for comparison. The heart size is within normal limits. 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 If further study is desired, then CT of the chest would be recommended. The lungs are clear. There is no sign of failure, pneumonia or a pleural effusion. The mediastinum is not widened. The osseous structures are intact. External cardiac monitoring electrodes are noted. IMPRESSION: 1. There is no evidence for an acute cardiopulmonary abnormality. 2. 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 Recommendations as above. Dictated by: Dictated on workstation # [id number]
[2018-12-10] MEDS ORDERED: LIDOCAINE 1% INJ 20 ML 20 ML VIAL ONE (06:46)
[2018-12-10] MEDS ORDERED: MIDAZOLAM 5 MG/5 ML (VERSED) VIAL ONE (06:46)
[2018-12-10] MEDS ORDERED: fentaNYL INJECTION 100 MCG/2 ML AMP ONE (06:46)
[2018-12-10] MEDS ORDERED: NITRO DRIP 25000 MCG/D5W 250 ML IV ONE (06:47)
[2018-12-10] MEDS ORDERED: HEParin (CATH LAB) 2,000 ML IV ONE (06:47)
[2018-12-10] MEDS ORDERED: HEParin 1000 UNIT/ML (10ML VIAL) FOR BOLUS ONE (06:47)
[2018-12-10] MEDS ORDERED: NS IV 1000 ML 1,000 ML ONE (06:47)
[2018-12-10] MEDS ORDERED: NS IV 1000 ML 1,000 ML IV SCH (07:45)
--- NOTE | 2018-12-10 07:45 | Cardiology History & Physical ---
HPI-Cardiology Cardiology H&P Date of Admission 12/10/18 Primary Care Physician Valeriano Boyd MD Attending Physician Marcos Simon MD, MA FACP [facility] Consulting Physician ARELI CC: Chest pain HPI: 43 yo man with multiple CAD risk factors (see below) who presented to [facility] ER with sudden onset of midsternal cp, severe (10/10), associated with diaphoresis, somewhat worse with cough, never experienced before, improved but not relieved with s/l NTG in ER. Does not report shortness of breath. No palp or syncope Review of Systems-Cardiology Review of Systems Constitutional: No weight loss, No weight gain Eyes: No vision change Ears/Nose/Throat: No ear discharge, No nasal drainage, No recent hearing loss Respiratory: As described under HPI Cardiovascular: As described under HPI Gastrointestinal: No diarrhea, No nausea, No vomiting Genitourinary: No dysuria, No hematuria, No urine frequency changes Musculoskeletal: No back pain, No joint pain Skin: No rash, No ulcerations Psychiatric/Neurological: No seizure, No focal weakness, No syncope Hematologic: No bleeding abnormalities MWT-Rfiguz-Sgsimq Hx Patient Social History Alcohol Use: Denies Use Recreational Drug Use: No Smoking Status: Current Everyday Smoker Type Used: Cigars 2nd Hand Smoke Exposure: No Recent Foreign Travel: No Recent Infectious Disease Expo: No Hospitalization with Isolation: Denies Past Medical History PMH As described under Assessment. Allergies and Home Medications Allergies Coded Allergies: No Known Drug Allergies (Unverified , 12/10/18) Patient Home Medication List Home Medication List Reviewed: Yes Physical Exam-Cardiology Physical Exam Vital Signs/I&O 12/10/18 12/10/18 12/10/18 05:23 05:41 06:35 Temp 98.9 Pulse 70 66 Resp 22 21 B/P (MAP) 133/83 (100) 118/69 (85) Pulse Ox 95 95 99 O2 Delivery Room Air Nasal Cannula Room Air O2 Flow Rate 4.00 4.00 Capillary Refill : Less Than 3 Seconds Constitutional: AAO x 3, well-developed, well-nourished HEENT: EOMI, hearing is well preserved; No xanthelasmas are seen Neck: carotid pulses are 2 + bilaterally, with good upstrokes Respiratory: No accessory muscle use; lungs clear to percussion, lungs clear to auscultation Cardiovascular: regular rate-rhythm, S1 and S2, systolic murmur (soft MOISE at card base) Gastrointestinal: No tender, No guarding, No rebound; audible bowel sounds Extremities: No clubbing, No cyanosis, No significant edema Neurologic/Psychiatric: oriented x 3, grossly intact, power is 5/5 both on sides Skin: No rash on exposed areas, No ulcerations on exposed areas Data Review Labs Laboratory Tests 12/10/18 05:14: White Blood Count 6.8, Red Blood Count 5.17, Hemoglobin 15.8, Hematocrit 45, Mean Corpuscular Volume 87, Mean Corpuscular Hemoglobin 31, Mean Corpuscular Hemoglobin Concent 35, Red Cell Distribution Width 11.9, Platelet Count 273, Mean Platelet Volume 9.8, Neutrophils (%) (Auto) 49, Lymphocytes (%) (Auto) 38, Monocytes (%) (Auto) 8, Eosinophils (%) (Auto) 4, Basophils (%) (Auto) 1, Neutrophils # (Auto) 3.3, Lymphocytes # (Auto) 2.6, Monocytes # (Auto) 0.6, Eosinophils # (Auto) 0.3, Basophils # (Auto) 0.1, Prothrombin Time 11.8L, INR Comment 0.8, Activated Partial Thromboplast Time 27, Sodium Level 133L, Potassium Level 3.9, Chloride Level 94L, Carbon Dioxide Level 23, Anion Gap 16H, Blood Urea Nitrogen 19H, Creatinine 0.71, Estimat Glomerular Filtration Rate > 60, BUN/Creatinine Ratio 27, Glucose Level 306H, Calcium Level 9.2, Corrected Calcium 9.0, Magnesium Level 1.7L, Total Bilirubin 0.4, Aspartate Amino Transf (AST/SGOT) 14, Alanine Aminotransferase (ALT/SGPT) 20, Alkaline Phosphatase 75, Myoglobin < 21.0, Troponin T < 6, Total Protein 7.0, Albumin 4.2 Laboratory Tests 12/10/18 05:14 A/P-Cardiology Assessment/Admission Diagnosis Chest pain, suspected acute coronary syndrome DM II Chronic tobacco use (smokes cigarettes) Fam h/o early CAD (father) Admission Status: Inpatient Order (span 2 midnights) Reason for Inpatient Admission: Ac coronary syndrome (acute AL) suspected Discussion and Recomendations * Urgent card cath recommended due to continuing symptoms that led to emergency transfer from [facility] to this hosp * I explained the rationale, procedure, risks, benefits, potential complications and alternatives of card cath and possible ad hoc cor intervention to him. He understood and provided informed consent Clinical Quality Measures AMI/AHF: ASA po Prior to arrival: Yes MARCOS SIMON MD FACP FACC CCDS Dec 10, 2018 07:45
[2018-12-10] MEDS ORDERED: PATIENT MAY USE OWN MEDS, ALL PO SCH (08:00)
[2018-12-10 08:05] VITALS: BP 117/64
[2018-12-10 08:15] VITALS: BP 117/64
--- OUTSIDE RECORDS SUMMARY | 2018-12-10 08:44 | XMS REPORT | Continuity of Care Document ---
[...] 9.7 fL 7.5-12.5 ABSOLUTE NEUTROPHILS 7381 cells/uL 7757-2775 ABSOLUTE LYMPHOCYTES 2563 cells/uL 850-3900 ABSOLUTE MONOCYTES 671 cells/uL 200-950 ABSOLUTE EOSINOPHILS 330 cells/uL 15-500 ABSOLUTE BASOPHILS 55 cells/uL 0-200 NEUTROPHILS 67.1 % NRG LYMPHOCYTES 23.3 % NRG MONOCYTES 6.1 % NRG EOSINOPHILS 3.0 % NRG BASOPHILS 0.5 % NRG Encounters ACCT No. Visit Date/Time Discharge Status Pt. Type Provider Facility Loc./Unit Complaint [id number] 12/05/2018 13:30:00 12/05/2018 23:59:59 [facility] Outpatient SANA TSANG [facility] [id number] 04/14/2018 13:00:00 Document Registration
--- NOTE | 2018-12-10 09:04 | CARDIAC CATHETERIZATION ---
DATE OF SERVICE: 12/10/2018 CARDIAC CATHETERIZATION REPORT The patient is a 43-year-old man with multiple coronary artery disease risk factors that include diabetes, chronic smoking of cigarettes, family history of early coronary artery disease, who presented to the [facility] with severe chest pain that was improved with nitro and was associated with diaphoresis and had never been experienced before. The electrocardiogram was nondiagnostic, but suggestive of possible acute coronary syndrome. He was transferred to this hospital for further evaluation and consideration for emergency cardiac catheterization. I spoke with him prior to cardiac catheterization. Because of ongoing symptoms and high suspicion for acute coronary syndrome, cardiac catheterization was recommended and he provided informed consent. PROCEDURE IN DETAIL: He was brought directly to the cardiac catheterization laboratory from the [facility] because of ongoing symptoms. The right groin was prepared and draped in the usual sterile fashion. Lidocaine 1% was used for local anesthesia. Modified Seldinger technique was used to advance a 5-[place] sheath in right femoral artery. A 5-[place] JL4 catheter was used for left coronary angiography, 5-[place] Irish JR4 catheter for right coronary angiography. A 5-Northern Irish Gordy right catheter was used for selective angiography of the right coronary angiography. A 5-Northern Irish pigtail catheter was used for left heart catheterization and left ventricular angiography. A 5-[place] Irish pigtail catheter was used for aortic root angiography. Angiography of the right femoral artery was carried out through the sheath. Mynx was used to achieve hemostasis. He tolerated the procedure well. HEMODYNAMICS: Left ventricular end-diastolic pressure following coronary angiography was 11 mmHg. There was no significant pressure gradient on pullback across the aortic valve. Ascending aortic pressure was 114/78 with a mean of 58 mmHg. CORONARY ANGIOGRAPHY: Left main coronary artery is free of significant disease. Left anterior descending artery is free of significant disease. Left circumflex artery is free of significant disease. Right coronary artery is dominant and free of significant disease. LEFT VENTRICULAR ANGIOGRAPHY: Left ventricular angiography was carried out in the right anterior oblique projection. Global left ventricular systolic function is normal. No regional wall motion abnormalities are seen. Left ventricular ejection fraction is approximately 65%. There does not appear to be significant mitral regurgitation. AORTIC ROOT ANGIOGRAPHY: Aortic root angiography did not indicate any significant thoracic aortic aneurysm or dissection or significant aortic regurgitation. The aortic arch is right-sided. CONCLUSIONS: 1. No angiographically significant coronary artery disease. 2. Normal global left ventricular systolic function with ejection fraction of 65%. 3. Normal left ventricular end-diastolic pressure. 4. Right-sided aortic arch. DISCUSSION AND RECOMMENDATIONS: Based on results of this study, chest discomfort does not appear to be of cardiac origin. Risk factor modification is advised. We advised him to immediately quit smoking. Evaluation for noncardiac chest pain is with the hospitalist service that has been consulted. Job ID: [id number] DocumentID: [id number] Dictated Date: 12/10/2018 08:09:58 Creative Services Producer Date: 12/10/2018 09:03:38 Dictated By: HEATH EMERY MD, MA, FACP, FACC,
[2018-12-10] MEDS: NS IV 1000 ML 1,000 ML IV SCH ×2 (09:17→16:09)
--- NOTE | 2018-12-10 09:27 | Consultation-Hospitalist ---
HPI History of Present Illness: HPI/Chief Complaint Pt is a 43yoHM with no known PMH who presented to the ER with CC of acute onset CP while going to the bathroom. He states he became very diaphoretic and have intense entral chest pain. He denies nausea, vomiting, radiation, or shortness of breath. He was brought to [facility] ER for evaluation and transfer here for urgent cardiac cath which was unremarkable. He was transferred to the ICU follow recovery. I am consulted for medical management of likely undiagnosed diabetes. He was found to have a fasting BS of 306. Source: patient Exam Limitations: no limitations Date Seen 12/10/18 Attending Physician Marcos Simon MD Facp Facc Ccds PCP Sana Boyd MD Referring Physician Date of Admission Dec 10, 2018 at 08:05 Home Medications & Allergies Home Medications Reviewed patient Home Medication Reconciliation performed by pharmacy medication reconciliations control valve technician and/or nursing. Patients Allergies have been reviewed. Allergies Allergies Coded Allergies No Known Drug Allergies (Unverified12/10/18) Past Rmlxtga-Bvlqdd-Sjdibe Hx Past Med/Social Hx: Reviewed Nursing Past Med/Soc Hx Patient Social History Marrital Status: Alcohol Use: Denies Use Recreational Drug Use: No Smoking Status: Current Everyday Smoker Cigaretts per day: 10 Type Used: Cigars 2nd Hand Smoke Exposure: No Recent Foreign Travel: No Contact w/other who traveled: No Recent Hopitalizations: No Recent Infectious Disease Expo: No Seasonal Allergies Seasonal Allergies: No Past Medical History Endocrine: Diabetes, Non-Insulin dep Psychosocial: Depression History of Blood Disorders: No Adverse Reaction to Blood Busby: No Family History Reviewed Nursing Family Hx Heart Disease Review of Systems Constitutional: diaphoresis; No fever EENTM: no symptoms reported Respiratory: No dyspnea on exertion, No orthopnea, No short of breath Cardiovascular: chest pain; No edema, No Hx of Intervention, No palpitations Gastrointestinal: no symptoms reported Genitourinary: no symptoms reported Musculoskeletal: no symptoms reported Skin: no symptoms reported Psychiatric/Neurological: No Symptoms Reported Physical Exam Physical Exam Vital Signs Vital Signs - First Documented 12/10/18 12/10/18 05:23 05:41 Temp 98.9 Pulse 70 Resp 22 B/P (MAP) 133/83 (100) Pulse Ox 95 O2 Delivery Room Air O2 Flow Rate 4.00 Capillary Refill : Less Than 3 Seconds Height, Weight, BMI Height: 5'7.00" Weight: 200lbs. oz. [id number]; BMI Method:Stated General Appearance: No Apparent Distress, WD/WN HEENT: PERRL/EOMI, Moist Mucous Membranes; No Scleral Icterus (L), No Scleral Icterus (R) Neck: Normal Inspection, Supple; No JVD Respiratory: Lungs Clear, No Accessory Muscle Use, No Respiratory Distress Cardiovascular: Regular Rate, Rhythm, No JVD, No Murmur Gastrointestinal: Normal Bowel Sounds, Non Tender, Soft Extremity: Normal Inspection, Non Tender, No Calf Tenderness, No Pedal Edema Neurologic/Psychiatric: Alert, Oriented x3, Normal Mood/Affect; No Aphasia, No Facial Droop Skin: Normal Color, Warm/Dry; No Diaphoresis Results Results/Procedures Labs Laboratory Tests 12/10/18 05:14 Patient resulted labs reviewed. Imaging: Reviewed Imaging Films (No obvious PE per my read, await formal report) Assessment/Plan Assessment and Plan Assess & Plan/Chief Complaint Chest Pain Diagnosis/Problems Diagnosis/Problems (1) Non-insulin dependent type 2 diabetes mellitus Assessment & Plan: Fasting BS 306 Will start on sliding scale A1c ordered Denies diagnosis but has filled glipizide and Metformin multiple times since June of this year Hold Metformin given recent contrast use Will likely need to DC on Metformin (2) Chest pain Status: Acute Assessment & Plan: Underwent Cardiac Cath- clean CTA- formal read pending PPI ordered Lipid panel ordered Qualifiers: Chest pain type: chest pain due to myocardial ischemia Ischemic chest pain type: unspecified angina pectoris type Qualified Codes: I25.9 - Chronic ischemic heart disease, unspecified (3) Tobacco abuse Status: Chronic Assessment & Plan: Recommended cessation Previously quit smoking cold turkey for 3.5 years, resume after of father Patient declines any medication assistance with cessation given history Clinical Quality Measures AMI/AHF: ASA po Prior to arrival: Yes Smoking Cessation Counseling: Counseling-Symptomatic: 3-10 Minutes Copy Copies To 1: SANA BOYD MD, KATELYN M MD Dec 10, 2018 09:27
[2018-12-10] MEDS ORDERED: HOLD METFORMIN - RECEIVED CONTRAST 20 ML VIAL IV SCH (10:30)
[2018-12-10] MEDS ORDERED: NS 100 ML (IVPB) BAG IV ONE (10:30)
[2018-12-10] MEDS ORDERED: CATHETER FLUSH 10 ML SYR IV PRN (10:30)
[2018-12-10] MEDS ORDERED: IOHEXOL 350 MG/ML 150 ML (OMNIPAQUE 350) VIAL IV ONE (10:30)
--- NOTE | 2018-12-10 10:41 | Diagnostic Imaging Report ---
PROCEDURE: CT angiography of the chest with contrast. TECHNIQUE: Multiple contiguous axial images were obtained through the chest after uneventful bolus administration of intravenous contrast. 2D reconstructed CTA MIP acquisitions were also performed. Auto Exposure Controls were utilized during the CT exam to meet ALARA standards for radiation dose reduction. DATE: December 10, 2018. COMPARISON: Chest radiograph December 10, 2018. INDICATION: 43-year-old male, chest pain. FINDINGS: There are linear opacities in the right lower lobe and left lower lobe likely relating to atelectasis. There is no identified pulmonary nodule or lung mass. The more central airways are patent. There is no pneumothorax. There is no pleural effusion. There is no identified pulmonary embolus. There is a right-sided aortic arch. The left subclavian artery is passing posterior to the esophagus. The heart is not enlarged. There is no pericardial effusion. There is high attenuation in the urinary collecting systems which may relate to recent administration of contrast prior to this CT exam. Recommend correlation. Additional imaging evaluation of the imaged portions of the upper abdomen is unremarkable. There is no identified acute bony abnormality. IMPRESSION: CT CHEST. 1. No identified pulmonary embolus or other acute cardiopulmonary abnormality. 2. Right-sided aortic arch. 3. Atelectasis in the right and left lower lobes. Dictated by: Dictated on workstation # [id number]
[2018-12-10] MEDS: PANTOPRAZOLE 40 MG (PROTONIX) TAB PO SCH (10:44)
[2018-12-10] MEDS: MAGNESIUM 1 GM/100 ML IVPB 100 ML IV SCH ×2 (10:44→11:50)
[2018-12-10] MEDS: inSUlin ASPART (NovoLOG) 1 UNIT/0.01 ML (CHARGE PER UNIT) SC SCH ×3 (11:21→21:37)
[2018-12-10 11:38] VITALS: BP 117/64
[2018-12-10 12:00] VITALS: BP 103/60
[2018-12-10 16:00] VITALS: BP 113/78
[2018-12-10 19:30] VITALS: BP 114/72
[2018-12-10] MEDS ORDERED: ACETAMINOPHEN 500 MG TAB (TYLENOL) ONE (20:13)
[2018-12-10] MEDS: ACETAMINOPHEN 500 MG TAB (TYLENOL) PO PRN (20:21)
[2018-12-11] VITALS (8 sets, daily range): BP systolic 92–122; BP diastolic 49–73
[2018-12-11] MEDS: NS IV 1000 ML 1,000 ML IV SCH (03:00)
[2018-12-11 04:49] LABS: HEMOGLOBIN 14.7 G/DL (13.3-17.7); MEAN PLATELET VOLUME 9.8 FL (7.4-10.4); RED CELL DISTRIBUTION WIDTH 12.3 % (10.0-14.5); WHITE BLOOD COUNT 6.6 10^3/uL (4.3-11.0)
[2018-12-11 05:05] LABS: BUN/CREATININE RATIO 16; CALCIUM 8.5 MG/DL (8.5-10.1); CARBON DIOXIDE 22 MMOL/L (21-32); CHLORIDE 104 MMOL/L (98-107); CREATININE SERUM 0.83 MG/DL (0.60-1.30); GFR ESTIMATED > 60; GLUCOSE 274 MG/DL (70-105); POTASSIUM 4.3 MMOL/L (3.6-5.0); SODIUM 135 MMOL/L (135-145)
[2018-12-11] MEDS: inSUlin ASPART (NovoLOG) 1 UNIT/0.01 ML (CHARGE PER UNIT) SC SCH ×2 (06:47→12:59)
--- NOTE | 2018-12-11 10:12 | Progress Note-Hospitalist ---
Subjective HPI/CC On Admission Date Seen by Provider: Dec 11, 2018 Time Seen by Provider: 10:09 Pt is a 43yoHM with no known PMH who presented to the ER with CC of acute onset CP while going to the bathroom. He states he became very diaphoretic and have intense entral chest pain. He denies nausea, vomiting, radiation, or shortness of breath. He was brought to [facility] ER for evaluation and transfer here for urgent cardiac cath which was unremarkable. He was transferred to the ICU follow recovery. I am consulted for medical management of likely undiagnosed diabetes. He was found to have a fasting BS of 306. Objective Exam Vital Signs Vital Signs Date Time Temp Pulse Resp B/P (MAP) Pulse Ox O2 Delivery O2 Flow Rate FiO2 12/11/18 09:00 57 15 92/49 (63) 96 Room Air 12/10/18 19:30 98.1 12/10/18 11:38 4.00 4.00 Capillary Refill : Less Than 3 Seconds General Appearance: No Apparent Distress, WD/WN Neck: No JVD Respiratory: Lungs Clear, No Accessory Muscle Use, No Respiratory Distress Cardiovascular: Regular Rate, Rhythm, No JVD, No Murmur Gastrointestinal: Normal Bowel Sounds, Non Tender, Soft Neurologic/Psychiatric: Alert, Oriented x3, Normal Mood/Affect Results/Procedures Lab Laboratory Tests 12/11/18 04:35 Patient resulted labs reviewed. Imaging: Reviewed Imaging Films (No obvious PE per my read, await formal report) Assessment/Plan Assessment and Plan Assess & Plan/Chief Complaint Chest Pain Diagnosis/Problems Diagnosis/Problems (1) Non-insulin dependent type 2 diabetes mellitus Assessment & Plan: Fasting BS 306 Cont sliding scale A1c ordered Now reports known diabetes Hold Metformin given recent contrast use Can resume Metformin tomorrow given contrast (2) Chest pain Status: Acute Assessment & Plan: Underwent Cardiac Cath- clean CTA- negative for PE or dissection Continue PPI Lipid panel ordered Likely GI etiology- Possibly due to esophageal spasm Qualifiers: Chest pain type: chest pain due to myocardial ischemia Ischemic chest pain type: unspecified angina pectoris type Qualified Codes: I25.9 - Chronic ischemic heart disease, unspecified (3) Tobacco abuse Status: Chronic Assessment & Plan: Recommended cessation Previously quit smoking cold turkey for 3.5 years, resume after of father Patient declines any medication assistance with cessation given history Clinical Quality Measures AMI/AHF: ASA po Prior to arrival: Yes MOY SCOTT MD Dec 11, 2018 10:12
[2018-12-11] MEDS: PANTOPRAZOLE 40 MG (PROTONIX) TAB PO SCH (10:19)
[2018-12-11] MEDS: ACETAMINOPHEN 500 MG TAB (TYLENOL) PO PRN (12:04)
--- NOTE | 2018-12-11 14:05 | Progress Note-Cardiology ---
Cardiology SOAP Progress Note Subjective: No cp or palp or syncope or shortness of breath. Feels well. Wishes to go home Objective: I&O/Vital Signs 12/11/18 12/11/18 12/11/18 12/11/18 04:00 04:00 07:00 07:00 Pulse 62 61 62 Resp 13 16 B/P (MAP) 116/70 (85) 104/63 (77) Pulse Ox 96 95 O2 Delivery Room Air Room Air Room Air 12/11/18 12/11/18 12/11/18 12/11/18 07:45 07:46 08:00 09:00 Pulse 55 Resp 18 B/P (MAP) 112/60 (77) Pulse Ox 92 O2 Delivery Room Air Room Air Room Air Room Air 12/11/18 12/11/18 12/11/18 12/11/18 09:00 12:00 12:00 12:51 Pulse 57 66 62 Resp 15 22 B/P (MAP) 92/49 (63) 115/67 (83) Pulse Ox 96 93 O2 Delivery Room Air Room Air Room Air 12/11/18 13:00 Pulse 64 Resp 21 B/P (MAP) 122/73 (89) Pulse Ox 96 O2 Delivery Room Air 12/11/18 00:00 Intake Total 2510 ml Output Total 1900 ml Balance 610 ml Weight (Pounds): 200 Weight (Ounces): 0.0 Weight (Calculated Kilograms): 90.891990 Groin site without hematoma: Yes Condition: DP/PT pulses palpable Bruising: mild bruising Constitutional: AAO x 3, well-developed, well-nourished Respiratory: No accessory muscle use; lungs clear to percussion, lungs clear to auscultation Cardiovascular: regular rate-rhythm, S1 and S2, systolic murmur (soft MOISE at card base) Gastrointestional: No tender, No guarding, No rebound; audible bowel sounds Extremities: No clubbing, No cyanosis, No significant edema Neurologic/Psychiatric: oriented x 3, grossly intact, power is 5/5 both on sides Skin: No rash on exposed areas, No ulcerations on exposed areas Results/Procedures: Labs Laboratory Tests 12/10/18 16:45: Glucometer 272H 12/10/18 21:20: Glucometer 263H 12/11/18 04:35: White Blood Count 6.6, Red Blood Count 4.89, Hemoglobin 14.7, Hematocrit 42, Mean Corpuscular Volume 86, Mean Corpuscular Hemoglobin 30, Mean Corpuscular Hemoglobin Concent 35, Red Cell Distribution Width 12.3, Platelet Count 249, Mean Platelet Volume 9.8, Sodium Level 135, Potassium Level 4.3, Chloride Level 104, Carbon Dioxide Level 22, Anion Gap 9, Blood Urea Nitrogen 13, Creatinine 0.83, Estimat Glomerular Filtration Rate > 60, BUN/Creatinine Ratio 16, Glucose Level 274H, Calcium Level 8.5 Laboratory Tests 12/10/18 05:14 12/11/18 04:35 A/P: Assessment: Chest pain, non-cardiac etiology undetermined Card cath on 12/10/18: normal cors, normal LVEDP, LVEF 60-65%, R-sided aortic arch Echo on 12/10/18: LVEF 50-55%, no pericardial eff, PASP 30 mmHg DM II Chronic tobacco use (smokes cigarettes). We have advised him to quit immediately and completely Fam h/o early CAD (father) Plan: * I discussed his case with Dr Hay of the [facility] yesterday * Plan to d/c today with outpt f/u with pcp * Advised to hold off on metformin for 48 hours after card cath of 12/10/18 * Advised to avoid any tobacco use * Card risk factor mod reviewed. Questions answered * I did advise him and his of all their cardiac w/u (including incidental finding of a R-sided aortic arch) Clinical Quality Measures AMI/AHF: ASA po Prior to arrival: Yes HEATH EMERY MD FACP FAC CCDS Dec 11, 2018 14:05
[2018-12-11] MEDS ORDERED: PANT40TA3 PO (14:55)
--- NOTE | 2018-12-11 14:56 | Discharge Inst-Post CATH ---
Discharge Inst-CATH/EP Post Cardiac Cath/EP D/C Inst Follow Up/Plan F/u with family physician as soon as possible for evaluation and treatment of non-cardiac chest pain F/u with Dr Simon in 2 weeks ACTIVITY * Go Home directly and rest. * Limit activity of the leg (or wrist if it was used) for 7 days including aerobics, swimming, jogging, bicycling, etc. * Restrict stair-climbing for 7 days if possible, if not, climb up with your non-cath leg, then bring together on the same step. * Avoid lifting, pushing, pulling or excessive movement of the affected extremity for 7 days. * Customary sexual activity may be resumed after 2 days-use caution not to use a position that strains or causes pain to the affected extremity. * No driving for 24 hours. * NO SMOKING. * Avoid straining for bowel movements for 7 days. * Gentle walking on level ground is allowed. * Returning to work will depend on the type of procedure and the results. Your doctor will discuss this with you. CALL YOUR DOCTOR FOR ANY OF THE FOLLOWING: *If bleeding from the puncture site occurs- Apply gentle pressure to site with clean cloth and call your doctor or EMS. * If a knot or lump forms under the skin, increases in size, or causes pain. * If bruising appears to be worsening or moving further down your leg instead of disappearing. * Temperature above 101 F. CARE OF YOUR GROIN INCISION; * Bruising or purple discoloration of the skin near the puncture site is common. * You may shower only, no bathtub bathing for 5 days. Be careful to avoid slipping as your leg may feel stiff. * If a closure device was used on your femoral artery, please see the attached guide regarding care of the device and your leg. * Leave dressing on FOR 24 hours. CARE OF YOUR WRIST INCISION; * Bruising or purple discoloration of the skin near the puncture site is common. * You may shower. * DO NOT submerge wrist. * Leave dressing on FOR 24 hours. HEATH SIMON MD [facility] CCDS Dec 11, 2018 14:56
--- NOTE | 2018-12-11 14:58 | Discharge Inst-Cardiology ---
Discharge Inst-Cardiac Discharge Medications New Medications: Pantoprazole Sodium (Pantoprazole Sodium) 40 Mg Tablet.dr 40 MG PO DAILY for 30 Days, #30 TAB 0 Refills Continued Medications: [Glipizide 10MG Tab] () 10 MG PO DAILY [Sertraline 50MG Tab] () 50 MG PO DAILY Discontinued Medications: [Metformin 500MG Tab] () 500 MG PO DAILY Patient Instructions Patient Instructions: Hold metformin until tomorrow morning; then resume previous home regimen of metformin HEATH EMERY MD FACP FACC CCDS Dec 11, 2018 14:58
--- NOTE | 2018-12-13 11:35 | Physician Query-Final Dx ---
MIRELA NAIDU 12/13/18 1135: Final Diagnosis Give Final Diagnosis Please give Final Diagnosis HEATH EMERY MD [facility] 12/13/18 1738: Final Diagnosis Give Final Diagnosis Chest pain, non-cardiac, etiology undetermined Card cath on 12/10/18: normal cors, normal LVEDP, LVEF 60-65%, R-sided aortic arch Echo on 12/10/18: LVEF 50-55%, no pericardial eff, PASP 30 mmHg DM II Chronic tobacco use (smokes cigarettes). We have advised him to quit immediately and completely MIRELA NAIDU Dec 13, 2018 11:35 HEATH EMERY MD [facility] Dec 13, 2018 17:38
== END 2018-12-11 15:25 | disposition home or self-care (01) | DRG 287 ==
LOC: ER FS 05:12 → CATH 06:34 → ICU 08:05
PROVIDERS: ADMIT Internal Medicine Cardiovascular Disease; ATTEND Internal Medicine Cardiovascular Disease
PROC: 4A023N7 Measurement of Cardiac Sampling and Pressure, Left Heart, Percutaneous Approach (ICD-10-PCS; principal; 2018-12-10)
PROC: B2111ZZ Fluoroscopy of Multiple Coronary Arteries using Low Osmolar Contrast (ICD-10-PCS; 2018-12-10)
PROC: B2151ZZ Fluoroscopy of Left Heart using Low Osmolar Contrast (ICD-10-PCS; 2018-12-10)
PROC: B3101ZZ Fluoroscopy of Thoracic Aorta using Low Osmolar Contrast (ICD-10-PCS; 2018-12-10)
DX: R07.89 Other chest pain (principal); E11.9 Type 2 diabetes mellitus without complications; Z79.84 Long term (current) use of oral hypoglycemic drugs; E78.5 Hyperlipidemia, unspecified; F17.210 Nicotine dependence, cigarettes, uncomplicated; F32.9 Major depressive disorder, single episode, unspecified; Z82.49 Family history of ischemic heart disease and other diseases of the circulatory system
CPT/HCPCS: 36415; 71045; 71275; 80048; 80053; 82962; 83036; 83735; 83874; 84484; 85025; 85027; 85610; 85730; 93005; 93306; 93458; 93567

== ENCOUNTER 2019-11-09 16:23 | Emergency (ER) | payer OTHER ==
[~2019-11-09] VITALS: Ht 175 cm; Wt 91.1 kg
[~2019-11-09 16:23] MED LIST: ATORVASTATIN 40MG TAB; GLIPIZIDE 10 MG PO; METFORMIN 500 MG PO; PANT40TA3 PO; SERTRALINE 50 MG PO
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
[2019-11-09 17:04] LABS: HEMATOCRIT 44 % (40-54); HEMOGLOBIN 15.8 G/DL (13.3-17.7); LYMPHOCYTES % (AUTO) 35 % (12-44); MEAN CORPUSCULAR HEMOGLOBIN 31 PG (25-34); MEAN CORPUSCULAR HGB CONC 36 G/DL (32-36); MEAN CORPUSCULAR VOLUME 86 FL (80-99); NEUTROPHILS % (AUTO) 53 % (42-75); PLATELET COUNT 291 10^3/uL (130-400); RED CELL DISTRIBUTION WIDTH 11.9 % (10.0-14.5); WHITE BLOOD COUNT 7.1 10^3/uL (4.3-11.0)
[2019-11-09 17:05] LABS: BASOPHILS # (AUTO) 0.1 10^3/uL (0.0-0.1); BASOPHILS % (AUTO) 1 % (0-10); EOSINOPHILS # (AUTO) 0.3 10^3/uL (0.0-0.3); EOSINOPHILS % (AUTO) 4 % (0-10); LYMPHOCYTES # (AUTO) 2.5 X 10^3 (1.0-4.0); MONOCYTES # (AUTO) 0.5 X 10^3 (0.0-1.0); MONOCYTES % (AUTO) 7 % (0-12); NEUTROPHILS # (AUTO) 3.8 X 10^3 (1.8-7.8)
[2019-11-09 17:24] LABS: CARBON DIOXIDE 24 MMOL/L (21-32); CHLORIDE 99 MMOL/L (98-107); POTASSIUM 4.5 MMOL/L (3.6-5.0); SODIUM 136 MMOL/L (135-145)
[2019-11-09 17:25] LABS: ALANINE AMINOTRANSFERASE 25 U/L (0-55); ALBUMIN 4.1 GM/DL (3.2-4.5); ALKALINE PHOSPHATASE 75 U/L (40-136); BILIRUBIN,TOTAL 0.2 MG/DL (0.1-1.0); BUN/CREATININE RATIO 26; CALCIUM 9.1 MG/DL (8.5-10.1); CREATININE SERUM 0.85 MG/DL (0.60-1.30); GFR ESTIMATED > 60; GLUCOSE 309 MG/DL (70-105); LIPASE 28 U/L (8-78); MAGNESIUM 1.8 MG/DL (1.6-2.4); TOTAL PROTEIN 6.8 GM/DL (6.4-8.2)
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
[2019-11-09 17:39] LABS: EOSINOPHILS % (MANUAL) 3 %; LYMPHOCYTES % (MANUAL) 41 %; MONOCYTES % (MANUAL) 7 %; NEUTROPHILS % (MANUAL) 47 %; REACTIVE LYMPHOCYTES 2 %
[2019-11-09 17:48] LABS: BILIRUBIN,URINE NEGATIVE (NEGATIVE); CLARITY,URINE CLEAR; COLOR,URINE YELLOW; GLUCOSE, URINE (UA) 3+ (NEGATIVE); KETONES,URINE NEGATIVE (NEGATIVE); LEUKOCYTE ESTERASE ,URINE NEGATIVE (NEGATIVE); NITRITE,URINE NEGATIVE (NEGATIVE); PROTEIN,URINE 2+ (NEGATIVE)
[2019-11-09 17:49] LABS: BACTERIA,URINE TRACE /HPF
[2019-11-09 17:53] LABS: AMPHETAMINE SCREEN, URINE NEGATIVE (NEGATIVE); BARBITURATE SCREEN URINE NEGATIVE (NEGATIVE); BENZODIAZEPINES SCREEN URINE NEGATIVE (NEGATIVE); CANNABINOID SCREEN, URINE NEGATIVE (NEGATIVE); COCAINE SCREEN URINE NEGATIVE (NEGATIVE); METHADONE STAT NEGATIVE (NEGATIVE); METHAMPHETAMINE SCREEN URINE S NEGATIVE (NEGATIVE); OPIATE SCREEN URINE NEGATIVE (NEGATIVE); OXYCODONE STAT NEGATIVE (NEGATIVE); PROPOXYPHENE STAT NEGATIVE (NEGATIVE); TRICYCLIC ANTIDEPRESSANTS SCRE NEGATIVE (NEGATIVE)
[2019-11-09 18:21] VITALS: BP 139/75
--- OUTSIDE RECORDS SUMMARY | 2019-11-09 19:33 | XMS REPORT ---
Author Author Kodi JOLLY Organization [facility] Address [address] [place] [address] Care Team Providers Care Science Intern Name Role Phone CHIVO JOLLY Unavailable PROBLEMS Type Condition ICD9-CM Code FNO71-AM Code Onset Dates Condition S tatus SNOMED Code Problem Moderate episode of recurrent major depressive disorder F33.1 Active 423588572 Problem High foot arch Q66.7 Active 87912 004 Problem Hyperlipemia E78.5 Active 3330037 4 Problem Type 2 diabetes mellitus with hyperglycemia E11.65 Active [id number] Problem Type 2 diabetes mellitus without complications E11 .9 Active [id number] Problem Seasonal allergic rhinitis, unspecified allergic rhinitis trigger J30.2 Active [id number] ALLERGIES No Information ENCOUNTERS Encounter Location Date Diagnosis [facility] [address] [facility] [id number] [place] [address] Jun, [place] [id number] [facility] [id number] [address] Apr, [facility] [place] [facility] IN [facility] [address] [place] [address] Apr, Acute rhinosinusitis J01.90 [facility] IN [facility] [address] [place] [address] Feb, Sore throat J02.9 and Acute non-recurrent maxillary sinusitis J01.[address] [place] [address] Jan, [address] [place] [address] Jan, [address] [place] [address] Jan, [facility] L[place] [address] [place] [address] Jan, [facility] [place] [address] [place] [address] Dec, [facility] [place] [address] [id number] [place] [address] Dec, [facility] [place] [address] [place] [address] Dec, Type 2 diabetes mellitus wit h hyperglycemia E11.65 ; Immunization counseling Z71.89 ; Onychomycosis B35.1 ; Tinea pedis of both feet B35.3 and High foot arch Q66.7 [facility] [place] [address] [place] [address] Dec, Type 2 diabetes mellitus wit h hyperglycemia E11.65 [address] [place] [address] Nov, Type 2 diabetes mellitus wit h hyperglycemia E11.65 and Hyperlipemia E78.5 [facility] [address] [id number] [place] [address] Nov, [facility] [place] [facility] IN [facility] [address] [place] [address] Sep, Sinusitis acute J01.90 [facility]ALK IN [facility] [address] [facility] [id number] [address] [place] [address] Apr, Acute non-recurrent maxillar y sinusitis J01.00 and Acute nasopharyngitis J00 [facility] [address] [id number] [place] [address] Mar, Type 2 diabetes mellitus without complic ations E11.9 ; Moderate episode of recurrent major depressive disorder F33.1 and Hyperlipemia E78.5 [facility] [address] [id number] [place] [address] Mar, [facility] [address] [id number] [place] [address] Feb, [place] [address] [place] [id number] [place] [address] Jan, [facility] [address] [place] [address] Jan, Acute non-recurrent pansinus itis J01.40 [place] [address] [address] Dec, Type 2 diabetes mellitus with hyperglyce primitivo E11.65 [place] [address] [address] Jul, Type 2 diabetes mellitus with hyperglyce primitivo E11.65 [place] [address] [address] Jun, Hyperlipemia E78.5 [facility] [place] [address] [place] [id number] [place] [address] October, Strep throat J02.0 and Sore throat J02.9 [place] [address] [address] Aug, [facility] [place] [address] [address] Jul, Seasonal allergic rhinitis, unspecified allergic rhinitis trigger J30.2 [place] [address] [address] Jun, Type 2 diabetes mellitus without complic ations E11.9 [place] [address] [address] May, Type 2 diabetes mellitus with hyperglyce primitivo E11.65 and Hyperlipemia E78.5 [place] [address] [address] Mar, [place] [address] [address] Mar, [place] [address] [address] Feb, Type 2 diabetes mellitus without complic ations E11.9 [facility] [address] [address] Feb, [facility] [address] [address] October, Type 2 diabetes mellitus with hyperglyce primitivo E11.65 [facility] [address] [address] Aug, Hyperlipemia E78.5 [facility] [address] [address] Jul, Hyperlipemia E78.5 [facility] [address] [address] 08 Jul, 2015 Type 2 diabetes mellitus with complicati on E11.8 and Carpal tunnel syndrome G56.00 [facility] [address] [address] Jul, [facility] [address] [address] Jul, [facility] [address] [address] Feb, [facility] [address] [address] Nov, [facility] [address] [address] October, Diabetes mellitus without mention of com plication, type II or unspecified type, not stated as uncontrolled 250.00 and Proteinuria 791.0 [facility] [address] [address] Sep, [facility] [address] [address] Sep, [facility] [address] [address] Sep, [facility] [address] [place] [address] Sep, 2014 [facility] [address] [id number] [place] [address] Aug, [facility] [address] [id number] [place] [address] Aug, [facility] [address] [id number] [place] [address] Aug, [facility] [address] [id number] [place] [address] Aug, [facility] [address] [id number] [place] [address] Apr, [facility] [address] [id number] [place] [address] Apr, [facility] [address] [id number] [place] [address] Mar, [facility] [address] [id number] [place] [address] Mar, [facility] [address] [id number] [place] [address] Mar, [facility] [address] [id number] [place] [address] Mar, [facility] [address] [id number] [place] [address] Mar, [facility] [address] [id number] [place] [address] Feb, 2013 [facility] [address] [id number] [place] [address] Feb, 2013 [facility] [address] [id number] [place] [address] Feb, 2013 [facility] [address] [id number] [place] [address] Feb, 2013 [facility] [address] [id number] [place] [address] Dec, [facility] [address] [id number] [place] [address] Dec, [facility] [address] [id number] [place] [address] Dec, [facility] [address] [id number] [place] [address] Nov, [facility] [address] [id number] [place] [address] Nov, [facility] [address] [id number] [place] [address] October, [facility] [address] [id number] [place] [address] October, [facility] [address] [id number] [place] [address] Sep, [facility] [address] [id number] [place] [address] Sep, [facility] [address] [id number] [place] [address] Sep, [facility] [address] [id number] [place] [address] Sep, [facility] [address] [id number] [place] [address] Sep, [facility] [address] [id number] [place] [address] Aug, [facility] [address] [id number] [place] [address] Aug, [facility] [address] [id number] [place] [address] Mar, [facility] [address] [id number] [place] [address] Mar, [facility] [address] [id number] [place] [address] Jan, [facility] [address] [id number] [place] [address] Jan, [facility] [address] [id number] [place] [address] Dec, [facility] [address] [id number] [facility] [place] [address] Dec, [facility] [address] [id number] [place] [address] Nov, [facility] [address] [id number] [place] [address] Nov, [facility] [address] [id number] [place] [address] Nov, [facility] [address] [id number] [place] [address] Sep, [facility] [address] [id number] [place] [address] Sep, [facility] [address] [id number] [place] [address] Aug, [facility] [address] [id number] [place] [address] Aug, [facility] [address] [id number] [place] [address] Aug, [facility] [address] [id number] [place] [address] Jul, [facility] [address] [id number] [place] [address] Jul, [facility] [address] [id number] [place] [address] May, [facility] [address] [id number] [place] [address] May, [facility] [address] [id number] [place] [address] Apr, [facility] [address] [id number] [place] [address] Apr, [facility] [address] [id number] [place] [address] Mar, [facility] [address] [id number] [place] [address] Mar, [facility] [address] [id number] [place] [address] Mar, [facility] [address] [id number] [place] [address] Mar, [facility] [address] [id number] [place] [address] Mar, [facility] [address] [id number] [place] [address] Mar, [facility] [address] [id number] [place] [address] Mar, [facility] [address] [id number] [place] [address] Mar, [facility] [address] [id number] [place] [address] Mar, [facility] [address] [id number] [place] [address] Mar, [facility] [address] [id number] [place] [address] Mar, [facility] [address] [id number] [place] [address] Mar, [facility] [address] [id number] [place] [address] 15 Mar, 2012 [facility] [address] [id number] [place] [address] 13 Feb, 2012 [facility] [address] [id number] [place] [address] 06 Sep2011 [facility] [address] [id number] [place] [address] 04 Feb, 2011 [facility] [address] [id number] [place] [address] 16 Jan, 2012 [facility] [address] [id number] [place] [address] Jan, [facility] [address] [place] [id number] [place] [address] October, [facility] [address] [id number] [place] [address] Sep, [facility] [address] [place] [id number] [place] [address] Sep, [facility] [address] [place] [id number] [place] [address] Aug, [facility] [address] [place] [id number] [place] [address] Jul, [facility] [address] [place] [id number] [place] [address] Jul, [facility] [address] [place] [id number] [place] [address] Jul, [facility] [address] [id number] [place] [address] Jul, [facility] [address] [place] [id number] [place] [address] Jun, [facility] [address] [place] [id number] [place] [address] May, IMMUNIZATIONS No Known Immunizations SOCIAL HISTORY Never Assessed REASON FOR VISIT PLAN OF CARE VITAL SIGNS Height 67 in 2013-09-25 Weight 207.5 lbs 2013-09-25 Temperature 98 degrees Fahrenheit 2013-09-25 Heart Rate 86 bpm 2013-09-25 Respiratory Rate 18 2013-09-25 Blood pressure systolic 130 mmHg 2013-09-25 Blood pressure diastolic 82 mmHg 2013-09-25 MEDICATIONS Unknown Medications RESULTS No Results PROCEDURES Procedure Date Ordered Result Body Site GLYCATED HEMOGLOBIN TEST September 25, 2013 MICROALBUMIN, SEMIQUANT September 25, 2013 MICROALBUMIN, QUANTITATIVE September 25, 2013 INSTRUCTIONS MEDICATIONS ADMINISTERED No Known Medications MEDICAL (GENERAL) HISTORY Type Description Date Medical History Type II DM Medical History Eye exam 10/2014 No retinopathy Medical History Hypercholesterolemia Surgical History heart cath 11/2018 Hospitalization History see surgeries
--- OUTSIDE RECORDS SUMMARY | 2019-11-09 19:33 | XMS REPORT ---
Author Author Kodi JOLLY Organization [facility] Address [address] [place] [address] Care Team Providers Care Growth Hacker Name Role Phone CHIVO JOLLY Unavailable PROBLEMS Type Condition ICD9-CM Code QUV18-CE Code Onset Dates Condition S tatus SNOMED Code Problem Moderate episode of recurrent major depressive disorder F33.1 Active 044522112 Problem High foot arch Q66.7 Active 74917 004 Problem Hyperlipemia E78.5 Active 3831951 4 Problem Type 2 diabetes mellitus with hyperglycemia E11.65 Active 329404526754387 Problem Type 2 diabetes mellitus without complications E11 .9 Active 114514139 Problem Seasonal allergic rhinitis, unspecified allergic rhinitis trigger J30.2 Active [id number] ALLERGIES No Information ENCOUNTERS Encounter Location Date Diagnosis [facility] [id number] [facility] [id number] [place] [address] Jun, [place] [id number] [facility] [id number] [address] Apr, [facility] IN [facility] [address] [place] [address] Apr, Acute rhinosinusitis J01.90 [facility] IN [facility] [address] [place] [address] Feb, Sore throat J02.9 and Acute non-recurrent maxillary sinusitis J01.[address] [place] [address] Jan, [address] [place] [address] Jan, [address] [place] [address] Jan, [facility] [place] [address] [place] [address] Jan, [facility] [address] [place] [address] Dec, [facility] [place] [id number] [place] [address] Dec, [facility] [address] [place] [address] Dec, Type 2 diabetes mellitus wit h hyperglycemia E11.65 ; Immunization counseling Z71.89 ; Onychomycosis B35.1 ; Tinea pedis of both feet B35.3 and High foot arch Q66.7 [facility] [address] [place] [address] Dec, Type 2 diabetes mellitus wit h hyperglycemia E11.65 [address] [place] [address] Nov, Type 2 diabetes mellitus wit h hyperglycemia E11.65 and Hyperlipemia E78.5 [facility] [address] [id number] [place] [address] Nov, [facility] IN [facility] [address] [place] [address] Sep, Sinusitis acute J01.90 [facility] WALK IN [facility] [address] [facility] [id number] [place] [address] Apr, Acute non-recurrent maxillar y sinusitis J01.00 and Acute nasopharyngitis J00 [facility] [address] [id number] [place] [address] Mar, Type 2 diabetes mellitus without complic ations E11.9 ; Moderate episode of recurrent major depressive disorder F33.1 and Hyperlipemia E78.5 [facility] [address] [id number] [place] [address] Mar, [facility] [address] [id number] [place] [address] Feb, [place] [address] [place] [id number] [place] [address] Jan, [facility] [address] [place] [address] Jan, Acute non-recurrent pansinus itis J01.40 [place] [address] [address] Dec, Type 2 diabetes mellitus with hyperglyce primitivo E11.65 [place] [address] [address] Jul, Type 2 diabetes mellitus with hyperglyce primitivo E11.65 [place] [address] [address] Jun, Hyperlipemia E78.5 [facility] WALK IN [place] [address] [place] [id number] [place] [address] October, Strep throat J02.0 and Sore throat J02.9 [place] [address] [address] Aug, [facility] WALK IN [place] [address] [address] Jul, Seasonal allergic rhinitis, unspecified allergic rhinitis trigger J30.2 [place] [address] [address] Jun, Type 2 diabetes mellitus without complic ations E11.9 [place] [address] [address] May, Type 2 diabetes mellitus with hyperglyce primitivo E11.65 and Hyperlipemia E78.5 [place] [address] [address] Mar, [place] [address] [address] Mar, [place] [address] [address] Feb, Type 2 diabetes mellitus without complic ations E11.9 [facility] [address] [address] Feb, [facility] [address] [address] October, Type 2 diabetes mellitus with hyperglyce primitivo E11.65 [facility] [address] [address] Aug, Hyperlipemia E78.5 [facility] [address] [address] Jul, Hyperlipemia E78.5 [facility] [address] [address] 08 Jul, 2015 Type 2 diabetes mellitus with complicati on E11.8 and Carpal tunnel syndrome G56.00 [facility] [address] [address] Jul, [facility] [address] [address] Jul, [facility] [address] [address] Feb, [facility] [address] [address] Nov, [facility] [address] [address] October, Diabetes mellitus without mention of com plication, type II or unspecified type, not stated as uncontrolled 250.00 and Proteinuria 791.0 [facility] [address] [address] Sep, [facility] [address] [address] Sep, [facility] [address] [address] Sep, [facility] [address] [place] [address] Sep, 2014 [facility] [address] [id number] [place] [address] Aug, [facility] [address] [id number] [place] [address] Aug, [facility] [address] [id number] [place] [address] Aug, [facility] [address] [id number] [place] [address] Aug, [facility] [address] [id number] [place] [address] Apr, [facility] [address] [id number] [place] [address] Apr, [facility] [address] [id number] [place] [address] Mar, [facility] [address] [id number] [place] [address] Mar, [facility] [address] [id number] [place] [address] Mar, [facility] [address] [id number] [place] [address] Mar, [facility] [address] [id number] [place] [address] Mar, [facility] [address] [id number] [place] [address] Feb, 2013 [facility] [address] [id number] [place] [address] Feb, 2013 [facility] [address] [id number] [place] [address] Feb, 2013 [facility] [address] [id number] [place] [address] Feb, 2013 [facility] [address] [id number] [place] [address] Dec, [facility] [address] [id number] [place] [address] Dec, [facility] [address] [id number] [place] [address] Dec, [facility] [address] [id number] [place] [address] Nov, [facility] [address] [id number] [place] [address] Nov, [facility] [address] [id number] [place] [address] October, [facility] [address] [id number] [place] [address] October, [facility] [address] [id number] [place] [address] Sep, [facility] [address] [id number] [place] [address] Sep, [facility] [address] [id number] [place] [address] Sep, [facility] [address] [id number] [place] [address] Sep, [facility] [address] [id number] [place] [address] Sep, [facility] [address] [id number] [place] [address] Aug, [facility] [address] [id number] [place] [address] Aug, [facility] [address] [id number] [place] [address] Mar, [facility] [address] [id number] [place] [address] Mar, [facility] [address] [id number] [place] [address] Jan, [facility] [address] [id number] [place] [address] Jan, [facility] [address] [id number] [place] [address] Dec, [facility] [address] [id number] [facility] [facility] [place] [address] Dec, [facility] [address] [id number] [place] [address] Nov, [facility] [address] [id number] [place] [address] Nov, [facility] [address] [id number] [place] [address] Nov, [facility] [address] [id number] [place] [address] Sep, [facility] [address] [id number] [place] [address] Sep, [facility] [address] [id number] [place] [address] Aug, [facility] [address] [id number] [place] [address] Aug, [facility] [address] [id number] [place] [address] Aug, [facility] [address] [id number] [place] [address] Jul, [facility] [address] [id number] [place] [address] Jul, [facility] [address] [id number] [place] [address] May, [facility] [address] [id number] [place] [address] May, [facility] [address] [id number] [place] [address] Apr, [facility] [address] [id number] [place] [address] Apr, [facility] [address] [id number] [place] [address] Mar, [facility] [address] [id number] [place] [address] Mar, [facility] [address] [id number] [place] [address] Mar, [facility] [address] [id number] [place] [address] Mar, [facility] [address] [id number] [place] [address] Mar, [facility] [address] [id number] [place] [address] Mar, [facility] [address] [id number] [place] [address] Mar, [facility] [address] [id number] [place] [address] Mar, [facility] [address] [id number] [place] [address] Mar, [facility] [address] [id number] [place] [address] Mar, [facility] [address] [id number] [place] [address] Mar, [facility] [address] [id number] [place] [address] Mar, [facility] [address] [id number] [place] [address] 15 Mar, 2012 [facility] [address] [id number] [place] [address] 13 Feb, 2012 [facility] [address] [id number] [place] [address] 06 Sep2011 [facility] [address] [id number] [place] [address] 04 Feb, 2011 [facility] [address] [id number] [place] [address] 16 Jan, 2012 [facility] [address] [id number] [place] [address] Jan, [facility] [address] [id number] [place] [address] October, [facility] [address] [id number] [place] [address] Sep, [facility] [address] [place] [id number] [place] [address] Sep, [facility] [address] [place] [id number] [place] [address] Aug, [facility] [address] [place] [id number] [place] [address] Jul, [facility] [address] [place] [id number] [place] [address] Jul, [facility] [address] [place] [id number] [place] [address] Jul, [facility] [address] [id number] [place] [address] Jul, [facility] [address] [place] [id number] [place] [address] Jun, [facility] [address] [id number] [place] [address] May, IMMUNIZATIONS No Known Immunizations SOCIAL HISTORY Never Assessed REASON FOR VISIT PLAN OF CARE VITAL SIGNS MEDICATIONS Unknown Medications RESULTS No Results PROCEDURES No Known procedures INSTRUCTIONS MEDICATIONS ADMINISTERED No Known Medications MEDICAL (GENERAL) HISTORY Type Description Date Medical History Type II DM Medical History Eye exam 10/2014 No retinopathy Medical History Hypercholesterolemia Surgical History heart cath 11/2018 Hospitalization History see surgeries
--- OUTSIDE RECORDS SUMMARY | 2019-11-09 19:33 | XMS REPORT ---
Author Author Kodi JOLLY Organization [facility] Address [address] [place] [address] Care Team Providers Care Tar Leveler Name Role Phone CHIVO JOLLY Unavailable PROBLEMS Type Condition ICD9-CM Code DTY07-CU Code Onset Dates Condition S tatus SNOMED Code Problem Moderate episode of recurrent major depressive disorder F33.1 Active 254066515 Problem High foot arch Q66.7 Active 66234 004 Problem Hyperlipemia E78.5 Active 3181392 4 Problem Type 2 diabetes mellitus with hyperglycemia E11.65 Active [id number] Problem Type 2 diabetes mellitus without complications E11 .9 Active 022594601 Problem Seasonal allergic rhinitis, unspecified allergic rhinitis trigger J30.2 Active [id number] ALLERGIES No Information ENCOUNTERS Encounter Location Date Diagnosis [address] [id number] [place] [address] Jun, [address] [id number] [place] [address] Apr, [facility] [address] [id number] [address] Apr, Acute rhinosinusitis J01.90 [facility] IN [facility] [address] [id number] [address] Feb, Sore throat J02.9 and Acute non-recurrent maxillary sinusitis J01.[address] [id number] [place] [address] Jan, [address] [id number] [place] [address] Jan, [address] [id number] [place] [address] Jan, [facility] [address] [id number] [place] [address] Jan, [facility] [address] [id number] [place] [address] Dec, [facility]er[facility] [id number] [place] [address] Dec, [facility] [address] [id number] [place] [address] Dec, Type 2 diabetes mellitus wit h hyperglycemia E11.65 ; Immunization counseling Z71.89 ; Onychomycosis B35.1 ; Tinea pedis of both feet B35.3 and High foot arch Q66.7 [facility] [address] [id number] [place] [address] Dec, Type 2 diabetes mellitus wit h hyperglycemia E11.65 [facility] LEVI GOODWIN [address] [id number] [place] [address] Nov, Type 2 diabetes mellitus wit h hyperglycemia E11.65 and Hyperlipemia E78.5 [facility] [address] [facility] [id number] [address] [place] [address] Nov, [facility] [address] [id number] [place] [address] Sep, Sinusitis acute J01.90 [facility] WALK IN [facility] [address] [facility] [id number] [address] [place] [address] Apr, Acute non-recurrent maxillar y sinusitis J01.00 and Acute nasopharyngitis J00 [facility] [address] [facility] [id number] [address] [place] [address] Mar, Type 2 diabetes mellitus wit hout complications E11.9 ; Moderate episode of recurrent major depressive disorder F33.1 and Hyperlipemia E78.5 [facility] [address] [facility] [id number] [address] [place] [address] Mar, [facility] [address] [facility] [id number] [address] [place] [address] Feb, [facility] [address] [address] Jan, [facility] [address] [facility] [id number] [address] [place] [address] Jan, Acute non-recurrent pansinus itis J01.40 [facility] [address] [address] Dec, Type 2 diabetes mellitus wit h hyperglycemia E11.65 [place] [address] [address] Jul, Type 2 diabetes mellitus wit h hyperglycemia E11.65 [place] [address] [address] Jun, Hyperlipemia E78.5 [facility] [address] [address] October, Strep throat J02.0 and Sore throat J02.9 [place] [address] [address] Aug, [facility] [address] [address] 14 Jul, 2016 Seasonal allergic rhinitis, unspecified allergic rhinitis trigger J30.2 [facility] [address] [address] Jun, Type 2 diabetes mellitus wit hout complications E11.9 [place] [address] [facility] [id number] [address] [place] [address] May, Type 2 diabetes mellitus wit h hyperglycemia E11.65 and Hyperlipemia E78.5 [place] [address] [place] [id number] [address] [place] [address] Mar, [facility] [address] [address] Mar, [facility] [address] [facility] [id number] [address] [place] [address] Feb, Type 2 diabetes mellitus wit hout complications E11.9 [facility] [address] [facility] [id number] [address] [place] [address] Feb, [facility] [address] [facility] [id number] [address] [place] [address] October, Type 2 diabetes mellitus wit h hyperglycemia E11.65 [facility] [address] [facility] [id number] [address] [place] [address] Aug, Hyperlipemia E78.5 [facility] [address] [facility] [id number] [address] [place] [address] Jul, Hyperlipemia E78.5 [facility] [address] [place] [id number] [address] [place] [address] Jul, Type 2 diabetes mellitus wit h complication E11.8 and Carpal tunnel syndrome G56.00 [facility] [address] [facility] [id number] [address] [place] [address] Jul, [facility] [address] [place] [id number] [address] [place] [address] Jul, [facility] [address] [place] [id number] [address] [place] [address] Feb, [facility] [address] [place] [id number] [address] [place] [address] Nov, [facility] [address] [place] [id number] [address] [place] [address] October, Diabetes mellitus without me ntion of complication, type II or unspecified type, not stated as uncontrolled 250.00 and Proteinuria 791.0 [facility] [address] [place] [id number] [address] [place] [address] Sep, [facility] [address] [id number] [address] [place] [address], [place] [address] 28 Sep, 2014 [facility] [address] [id number] [address] [place] [address], [place] [address] 14 Sep, 2014 [facility] [address] [id number] [address] [place] [address], [place] [address] 13 Sep, 2014 [facility] [address] [id number] [address] [place] [address], [place] [address] 24 Aug, 2014 [facility] [address] [id number] [address] [place] [address], [place] [address] 24 Aug, 2014 [facility] [address] [id number] [address] [place] [address], [place] [address] 24 Aug, 2014 [facility] [address] [id number] [address] [place] [address], [place] [address] 24 Aug, 2014 [facility] [address] [id number] [address] [place] [address], [place] [address] Apr, [facility] [address] [id number] [address] [place] [address], [place] [address] Apr, [facility] [address] [id number] [address] [place] [address], [place] [address] Mar, [facility] [address] [id number] [address] [place] [address], [place] [address] Mar, [facility] [address] [id number] [address] [place] [address], [place] [address] Mar, [facility] [address] [id number] [address] [place] [address], [place] [address] Mar, [facility] [address] [id number] [address] [place] [address], [place] [address] Mar, [facility] [address] [id number] [address] [place] [address], [place] [address] Feb, [facility] [address] [id number] [address] [place] [address], [place] [address] Feb, [facility] [address] [id number] [facility] [address] Feb, [facility] [address] [id number] [address] [place] [address], [place] [address] Feb, [facility] [address] [id number] [address] [place] [address], [place] [address] Dec, [facility] [address] [id number] [address] [place] [address], [place] [address] Dec, [facility] [address] [id number] [address] [place] [address], [place] [address] Dec, [facility] [address] [id number] [address] [place] [address], [place] [address] Nov, [facility] [address] [id number] [address] [place] [address], [place] [address] Nov, [facility] [address] [id number] [address] [place] [address], [place] [address] October, [facility] [address] [id number] [address] [place] [address], [place] [address] October, [facility] [address] [id number] [address] [place] [address], [place] [address] Sep, [facility] [address] [id number] [address] [place] [address], [place] [address] Sep, [facility] [address] [id number] [address] [place] [address], [place] [address] 08 Sep, 2013 [facility] [address] [id number] [address] [place] [address], [place] [address] Sep, [facility] [address] [id number] [address] [place] [address], [place] [address] Sep, [facility] [address] [id number] [address] [place] [address], [place] [address] Aug, [facility] [address] [id number] [address] [place] [address], [place] [address] Aug, [facility] [address] [id number] [address] [place] [address], [place] [address] Mar, [facility] [address] [id number] [address] [place] [address], [place] [address] Mar, [facility] [address] [id number] [address] [place] [address], [place] [address] Jan, [facility] [address] [id number] [address] [place] [address], [place] [address] Jan, [facility] [address] [id number] [address] [place] [address], [place] [address] Dec, [facility] [address] [id number] [address] [place] [address], [place] [address] Dec, [facility] [address] [id number] [address] [place] [address], [place] [address] Nov, [facility] [address] [id number] [address] [place] [address], [place] [address] Nov, [facility] [address] [id number] [address] [place] [address], [place] [address] Nov, [facility] [address] [id number] [address] [place] [address], [place] [address] Sep, [facility] [address] [id number] [address] [place] [address], [place] [address] Sep, [facility] [address] [id number] [address] [place] [address], [place] [address] Aug, [facility] [address] [id number] [address] [place] [address], [place] [address] Aug, [facility] [address] [id number] [address] [place] [address], [place] [address] Aug, [facility] [address] [id number] [address] [place] [address], [place] [address] Jul, [facility] [address] [id number] [address] [place] [address], [place] [address] Jul, [facility] [address] [id number] [address] [place] [address], [place] [address] May, [facility] [address] [id number] [address] [place] [address], [place] [address] May, [facility] [address] [id number] [address] [place] [address], [place] [address] Apr, [facility] [address] [id number] [address] [place] [address], [place] [address] Apr, [facility] [address] [id number] [address] [place] [address], [place] [address] Mar, [facility] [address] [id number] [address] [place] [address], [place] [address] Mar, [facility] [address] [id number] [address] [place] [address], [place] [address] Mar, [facility] [address] [id number] [address] [place] [address], [place] [address] Mar, [facility] [address] [id number] [address] [place] [address], [place] [address] Mar, [facility] [address] [id number] [address] [place] [address], [place] [address] Mar, [facility] [address] [id number] [address] [place] [address], [place] [address] Mar, [facility] [address] [id number] [address] [place] [address], [place] [address] Mar, [facility] [address] [id number] [address] [place] [address], [place] [address] Mar, [facility] [address] [id number] [address] [place] [address], [place] [address] Mar, [facility] [address] [id number] [address] [place] [address], [place] [address] Mar, [facility] [address] [id number] [address] [place] [address], [place] [address] 15 Mar, 2012 [facility] [address] [id number] [address] [place] [address], [place] [address] 15 Mar, 2012 [facility] [address] [id number] [address] [place] [address], [place] [address] 13 Feb, 2012 [facility] [address] [id number] [address] [place] [address], [place] [address] 06 Feb, 2012 [facility] [address] [id number] [address] [place] [address], [place] [address] 04 Feb, 2012 [facility] [address] [id number] [address] [place] [address], [place] [address] 16 Jan, 2012 [facility] [address] [id number] [address] [place] [address], [place] [address] Jan, [facility] [address] [id number] [address] [place] [address], [place] [address] October, [facility] [address] [id number] [address] [place] [address], [place] [address] Sep, [facility] [address] [id number] [address] [place] [address], [place] [address] Sep, [facility] [address] [id number] [address] [place] [address], [place] [address] Aug, [facility] [address] [id number] [address] [place] [address], [place] [address] Jul, [facility] [address] [id number] [address] [place] [address], [place] [address] Jul, [facility] [address] [id number] [address] [place] [address], [place] [address] Jul, [facility] [address] [id number] [address] [place] [address], [place] [address] Jul, [facility] [address] [id number] [address] [place] [address] Jun, [facility] [address] [facility] [id number] [address] [place] [address] May, IMMUNIZATIONS No Known Immunizations SOCIAL HISTORY Never Assessed REASON FOR VISIT PLAN OF CARE VITAL SIGNS Height 67 in 2011-11-19 Weight 202.8 lbs 2011-11-19 Temperature 100.9 degrees Fahrenheit 2011-11-19 Heart Rate 106 bpm 2011-11-19 Respiratory Rate 18 2011-11-19 Blood pressure systolic 129 mmHg 2011-11-19 Blood pressure diastolic 71 mmHg 2011-11-19 MEDICATIONS Unknown Medications RESULTS No Results PROCEDURES No Known procedures INSTRUCTIONS MEDICATIONS ADMINISTERED No Known Medications MEDICAL (GENERAL) HISTORY Type Description Date Medical History Type II DM Medical History Eye exam 10/2014 No retinopathy Medical History Hypercholesterolemia Surgical History heart cath 11/2018 Hospitalization History see surgeries
--- OUTSIDE RECORDS SUMMARY | 2019-11-09 19:33 | XMS REPORT ---
Author Author Kodi JOLLY Organization [facility] Address [address] [place] [address] Care Team Providers Care Application Penetration Tester Name Role Phone CHIVO JOLLY Unavailable PROBLEMS Type Condition ICD9-CM Code FHD10-LR Code Onset Dates Condition S tatus SNOMED Code Problem Moderate episode of recurrent major depressive disorder F33.1 Active 632518448 Problem High foot arch Q66.7 Active 31386 004 Problem Hyperlipemia E78.5 Active 8298282 4 Problem Type 2 diabetes mellitus with hyperglycemia E11.65 Active 843521250079262 Problem Type 2 diabetes mellitus without complications E11 .9 Active 990231907 Problem Seasonal allergic rhinitis, unspecified allergic rhinitis trigger J30.2 Active [id number] ALLERGIES No Information ENCOUNTERS Encounter Location Date Diagnosis [address] [id number] [place] [address] Jun, [address] [id number] [place] [address] Apr, [facility] [address] [id number] [place] [address] Apr, Acute rhinosinusitis J01.90 [facility] IN [facility] [address] [id number] [place] [address] Feb, Sore throat J02.9 and Acute non-recurrent maxillary sinusitis J01.[address] [id number] [place] [address] Jan, [address] [id number] [place] [address] Jan, [address] 340B [id number] [place] [address] Jan, [facility] [address] [id number] [place] [address] Jan, [facility] [address] [id number], [place] [address] Dec, [facility] Schaefer55 [facility] [id number] [place] [address] Dec, [facility] [address] 340[address] [id number], [place] [address] Dec, Type 2 diabetes mellitus wit h hyperglycemia E11.65 ; Immunization counseling Z71.89 ; Onychomycosis B35.1 ; Tinea pedis of both feet B35.3 and High foot arch Q66.7 [facility] [address] [id number] [place] [address] Dec, Type 2 diabetes mellitus wit h hyperglycemia E11.65 [facility] GOODWIN [address] 340B [id number], [place] [address] Nov, Type 2 diabetes mellitus wit h hyperglycemia E11.65 and Hyperlipemia E78.5 [facility] [address] [facility] [id number] [address] [place] [address] Nov, [facility] [address] 340 [id number] [place] [address] Sep, Sinusitis acute J01.[address] [facility] IN [facility] [address] [facility] [id number] [address] [place] [address] Apr, Acute non-recurrent maxillar y sinusitis J01.00 and Acute nasopharyngitis J00 [facility] [address] [facility] [id number] [address] [place] [address] Mar, Type 2 diabetes mellitus wit hout complications E11.9 ; Moderate episode of recurrent major depressive disorder F33.1 and Hyperlipemia E78.5 [facility] [address] [facility] [id number] [address] [place] [address] Mar, [facility] [address] [facility] [id number] [address] [place] [address] Feb, [facility] [address] [address] Jan, [facility] [address] [facility] [id number] [address] [place] [address] Jan, Acute non-recurrent pansinus itis J01.40 [facility] [address] [address] Dec, Type 2 diabetes mellitus wit h hyperglycemia E11.65 [place] [address] [address] Jul, Type 2 diabetes mellitus wit h hyperglycemia E11.65 [place] [address] [address] Jun, Hyperlipemia E78.5 [facility] [address] [address] October, Strep throat J02.0 and Sore throat J02.9 [place] [address] [address] Aug, [facility] [address] [address] 14 Jul, 2016 Seasonal allergic rhinitis, unspecified allergic rhinitis trigger J30.2 [facility] [address] [address] Jun, Type 2 diabetes mellitus wit hout complications E11.9 [place] [address] [facility] [id number] [address] [place] [address] May, Type 2 diabetes mellitus wit h hyperglycemia E11.65 and Hyperlipemia E78.5 [place] [address] [place] [id number] [address] [place] [address] Mar, [facility] [address] [address] Mar, [facility] [address] [facility] [id number] [address] [place] [address] Feb, Type 2 diabetes mellitus wit hout complications E11.9 [facility] [address] [facility] [id number] [address] [place] [address] Feb, [facility] [address] [facility] [id number] [address] [place] [address] October, Type 2 diabetes mellitus wit h hyperglycemia E11.65 [facility] [address] [facility] [id number] [address] [place] [address] Aug, Hyperlipemia E78.5 [facility] [address] [facility] [id number] [address] [place] [address] Jul, Hyperlipemia E78.5 [facility] [address] [place] [id number] [address] [place] [address] Jul, Type 2 diabetes mellitus wit h complication E11.8 and Carpal tunnel syndrome G56.00 [facility] [address] [facility] [id number] [address] [place] [address] Jul, [facility] [address] [place] [id number] [address] [place] [address] Jul, [facility] [address] [place] [id number] [address] [place] [address] Feb, [facility] [address] [place] [id number] [address] [place] [address] Nov, [facility] [address] [place] [id number] [address] [place] [address] October, Diabetes mellitus without me ntion of complication, type II or unspecified type, not stated as uncontrolled 250.00 and Proteinuria 791.0 [facility] [address] [place] [id number] [address] [place] [address] Sep, [facility] [address] [id number] [address] [place] [address], [place] [address] 28 Sep, 2014 [facility] [address] [id number] [address] [place] [address], [place] [address] 14 Sep, 2014 [facility] [address] [id number] [address] [place] [address], [place] [address] 13 Sep, 2014 [facility] [address] [id number] [address] [place] [address], [place] [address] 24 Aug, 2014 [facility] [address] [id number] [address] [place] [address], [place] [address] 24 Aug, 2014 [facility] [address] [id number] [address] [place] [address], [place] [address] 24 Aug, 2014 [facility] [address] [id number] [address] [place] [address], [place] [address] 24 Aug, 2014 [facility] [address] [id number] [address] [place] [address], [place] [address] Apr, [facility] [address] [id number] [address] [place] [address], [place] [address] Apr, [facility] [address] [id number] [address] [place] [address], [place] [address] Mar, [facility] [address] [id number] [address] [place] [address], [place] [address] Mar, [facility] [address] [id number] [address] [place] [address], [place] [address] Mar, [facility] [address] [id number] [address] [place] [address], [place] [address] Mar, [facility] [address] [id number] [address] [place] [address], [place] [address] Mar, [facility] [address] [id number] [address] [place] [address], [place] [address] Feb, [facility] [address] [id number] [address] [place] [address], [place] [address] Feb, [facility] [address] [id number] [facility] [place] [address] Feb, [facility] [address] [id number] [address] [place] [address], [place] [address] Feb, [facility] [address] [id number] [address] [place] [address], [place] [address] Dec, [facility] [address] [id number] [address] [place] [address], [place] [address] Dec, [facility] [address] [id number] [address] [place] [address], [place] [address] Dec, [facility] [address] [id number] [address] [place] [address], [place] [address] Nov, [facility] [address] [id number] [address] [place] [address], [place] [address] Nov, [facility] [address] [id number] [address] [place] [address], [place] [address] October, [facility] [address] [id number] [address] [place] [address], [place] [address] October, [facility] [address] [id number] [address] [place] [address], [place] [address] Sep, [facility] [address] [id number] [address] [place] [address], [place] [address] Sep, [facility] [address] [id number] [address] [place] [address], [place] [address] 08 Sep, 2013 [facility] [address] [id number] [address] [place] [address], [place] [address] Sep, [facility] [address] [id number] [address] [place] [address], [place] [address] Sep, [facility] [address] [id number] [address] [place] [address], [place] [address] Aug, [facility] [address] [id number] [address] [place] [address], [place] [address] Aug, [facility] [address] [id number] [address] [place] [address], [place] [address] Mar, [facility] [address] [id number] [address] [place] [address], [place] [address] Mar, [facility] [address] [id number] [address] [place] [address], [place] [address] Jan, [facility] [address] [id number] [address] [place] [address], [place] [address] Jan, [facility] [address] [id number] [address] [place] [address], [place] [address] Dec, [facility] [address] [id number] [address] [place] [address], [place] [address] Dec, [facility] [address] [id number] [address] [place] [address], [place] [address] Nov, [facility] [address] [id number] [address] [place] [address], [place] [address] Nov, [facility] [address] [id number] [address] [place] [address], [place] [address] Nov, [facility] [address] [id number] [address] [place] [address], [place] [address] Sep, [facility] [address] [id number] [address] [place] [address], [place] [address] Sep, [facility] [address] [id number] [address] [place] [address], [place] [address] Aug, [facility] [address] [id number] [address] [place] [address], [place] [address] Aug, [facility] [address] [id number] [address] [place] [address], [place] [address] Aug, [facility] [address] [id number] [address] [place] [address], [place] [address] Jul, [facility] [address] [id number] [address] [place] [address], [place] [address] Jul, [facility] [address] [id number] [address] [place] [address], [place] [address] May, [facility] [address] [id number] [address] [place] [address], [place] [address] May, [facility] [address] [id number] [address] [place] [address], [place] [address] Apr, [facility] [address] [id number] [address] [place] [address], [place] [address] Apr, [facility] [address] [id number] [address] [place] [address], [place] [address] Mar, [facility] [address] [id number] [address] [place] [address], [place] [address] Mar, [facility] [address] [id number] [address] [place] [address], [place] [address] Mar, [facility] [address] [id number] [address] [place] [address], [place] [address] Mar, [facility] [address] [id number] [address] [place] [address], [place] [address] Mar, [facility] [address] [id number] [address] [place] [address], [place] [address] Mar, [facility] [address] [id number] [address] [place] [address], [place] [address] Mar, [facility] [address] [id number] [address] [place] [address], [place] [address] Mar, [facility] [address] [id number] [address] [place] [address], [place] [address] Mar, [facility] [address] [id number] [address] [place] [address], [place] [address] Mar, [facility] [address] [id number] [address] [place] [address], [place] [address] Mar, [facility] [address] [id number] [address] [place] [address], [place] [address] 15 Mar, 2012 [facility] [address] [id number] [address] [place] [address], [place] [address] 15 Mar, 2012 [facility] [address] [id number] [address] [place] [address], [place] [address] 13 Feb, 2012 [facility] [address] [id number] [address] [place] [address], [place] [address] 06 Feb, 2012 [facility] [address] [id number] [address] [place] [address], [place] [address] 04 Feb, 2012 [facility] [address] [id number] [address] [place] [address], [place] [address] 16 Jan, 2012 [facility] [address] [id number] [address] [place] [address], [place] [address] Jan, [facility] [address] [id number] [address] [place] [address], [place] [address] October, [facility] [address] [id number] [address] [place] [address], [place] [address] Sep, [facility] [address] [id number] [address] [place] [address], [place] [address] Sep, [facility] [address] [id number] [address] [place] [address], [place] [address] Aug, [facility] [address] [id number] [address] [place] [address], [place] [address] Jul, [facility] [address] [id number] [address] [place] [address], [place] [address] Jul, [facility] [address] [id number] [address] [place] [address], [place] [address] Jul, [facility] [address] [id number] [address] [place] [address], [place] [address] Jul, [facility] [address] [id number] [address] [place] [address] Jun, [facility] [address] [facility] [id number] [address] [place] [address] May, IMMUNIZATIONS No Known Immunizations SOCIAL HISTORY [...]
--- OUTSIDE RECORDS SUMMARY | 2019-11-09 19:33 | XMS REPORT ---
Author Author Kodi JOLLY Organization [facility] Address [address] [place] [address] Care Team Providers Care Chess Instructor Name Role Phone CHIVO JOLLY Unavailable PROBLEMS Type Condition ICD9-CM Code WZL58-YS Code Onset Dates Condition S tatus SNOMED Code Problem Moderate episode of recurrent major depressive disorder F33.1 Active 738698528 Problem High foot arch Q66.7 Active 51783 004 Problem Hyperlipemia E78.5 Active 7226293 4 Problem Type 2 diabetes mellitus with hyperglycemia E11.65 Active 563306496247052 Problem Type 2 diabetes mellitus without complications E11 .9 Active 921462320 Problem Seasonal allergic rhinitis, unspecified allergic rhinitis trigger J30.2 Active [id number] ALLERGIES No Information ENCOUNTERS Encounter Location Date Diagnosis [address] [id number] [place] [address] Jun, [address] [id number] [place] [address] Apr, [facility] [address] [id number] [place] [address] Apr, Acute rhinosinusitis J01.90 [facility] IN [facility] [address] [id number] [place] [address] Feb, Sore throat J02.9 and Acute non-recurrent maxillary sinusitis J01.[address] [id number] [place] [address] Jan, [address] 340B [id number] [place] [address] Jan, [address] 340B [id number] [place] [address] Jan, [facility] [address]B [id number] [place] [address] Jan, [facility] [address] 340[address] [id number] [address] Dec, [facility] Schaefer55 [facility] [id number] [place] [address] Dec, [facility] [address] 340B [id number] [place] [address] Dec, Type 2 diabetes mellitus wit h hyperglycemia E11.65 ; Immunization counseling Z71.89 ; Onychomycosis B35.1 ; Tinea pedis of both feet B35.3 and High foot arch Q66.7 [facility] [address] 340B [id number] [place] [address] Dec, Type 2 diabetes mellitus wit h hyperglycemia E11.65 [facility] LEVI GOODWIN [address] 340B [id number] [place] [address] Nov, Type 2 diabetes mellitus wit h hyperglycemia E11.65 and Hyperlipemia E78.5 [facility] [address] [facility] [id number] [address] [place] [address] Nov, [facility] [address] [id number] [place] [address] Sep, Sinusitis acute J01.90 [facility] [address] [facility] [id number] [address] [place] [address] Apr, Acute non-recurrent maxillar y sinusitis J01.00 and Acute nasopharyngitis J00 [facility] [address] [facility] [id number] [address] [place] [address] Mar, Type 2 diabetes mellitus wit hout complications E11.9 ; Moderate episode of recurrent major depressive disorder F33.1 and Hyperlipemia E78.5 [facility] [place] [address] [facility] [id number] [address] [place] [address] Mar, [facility] [place] [address] [facility] [id number] [address] [place] [address] Feb, [facility] [address] [address] Jan, [facility] [address] [facility] [id number] [address] [place] [address] Jan, Acute non-recurrent pansinus itis J01.40 [facility] [address] [address] Dec, Type 2 diabetes mellitus wit h hyperglycemia E11.65 [place] [address] [address] Jul, Type 2 diabetes mellitus wit h hyperglycemia E11.65 [place] [address] [address] Jun, Hyperlipemia E78.5 [facility] [address] [address] October, Strep throat J02.0 and Sore throat J02.9 [place] [address] [address] Aug, [facility] [address] [address] 14 Jul, 2016 Seasonal allergic rhinitis, unspecified allergic rhinitis trigger J30.2 [facility] [address] [address] Jun, Type 2 diabetes mellitus wit hout complications E11.9 [place] [address] [facility] [id number] [address] [place] [address] May, Type 2 diabetes mellitus wit h hyperglycemia E11.65 and Hyperlipemia E78.5 [place] [address] [address] [place] [id number] [address] [place] [address] Mar, [facility] [address] [address] Mar, [facility] [address] [facility] [id number] [address] [place] [address] Feb, Type 2 diabetes mellitus wit hout complications E11.9 [facility] [place] [address] [facility] [id number] [address] [place] [address] Feb, [facility] [place] [address] [facility] [id number] [address] [place] [address] October, Type 2 diabetes mellitus wit h hyperglycemia E11.65 [facility] [place] [address] [facility] [id number] [address] [place] [address] Aug, Hyperlipemia E78.5 [facility] [place] [address] [facility] [id number] [address] [place] [address] Jul, Hyperlipemia E78.5 [facility] [place] [address] [place] [id number] [address] [place] [address] Jul, Type 2 diabetes mellitus wit h complication E11.8 and Carpal tunnel syndrome G56.00 [facility] [place] [address] [facility] [id number] [address] [place] [address] Jul, [facility] [place] [address] [place] [id number] [address] [place] [address] Jul, [facility] [place] [address] [place] [id number] [address] [place] [address] Feb, [facility] [place] [address] [place] [id number] [address] [place] [address] Nov, [facility] [place] [address] [place] [id number] [address] [place] [address] October, Diabetes mellitus without me ntion of complication, type II or unspecified type, not stated as uncontrolled 250.00 and Proteinuria 791.0 [facility] [address] [place] [id number] [address] [place] [address] Sep, [facility] [place] [address] [id number] [address] [place] [address], [place] [address] 28 Sep, 2014 [facility] [address] [id number] [address] [place] [address], [place] [address] 14 Sep, 2014 [facility] [address] [id number] [address] [place] [address], [place] [address] 13 Sep, 2014 [facility] [address] [id number] [address] [place] [address], [place] [address] 24 Aug, 2014 [facility] [address] [id number] [address] [place] [address], [place] [address] 24 Aug, 2014 [facility] [address] [id number] [address] [place] [address], [place] [address] 24 Aug, 2014 [facility] [address] [id number] [address] [place] [address], [place] [address] 24 Aug, 2014 [facility] [address] [id number] [address] [place] [address], [place] [address] Apr, [facility] [address] [id number] [address] [place] [address], [place] [address] Apr, [facility] [address] [id number] [address] [place] [address], [place] [address] Mar, [facility] [address] [id number] [address] [place] [address], [place] [address] Mar, [facility] [address] [id number] [address] [place] [address], [place] [address] Mar, [facility] [address] [id number] [address] [place] [address], [place] [address] Mar, [facility] [address] [id number] [address] [place] [address], [place] [address] Mar, [facility] [address] [id number] [address] [place] [address], [place] [address] Feb, [facility] [address] [id number] [address] [place] [address], [place] [address] Feb, [facility] [address] [id number] [facility] [place] [address] Feb, [facility] [address] [id number] [address] [place] [address], [place] [address] Feb, [facility] [address] [id number] [address] [place] [address], [place] [address] Dec, [facility] [address] [id number] [address] [place] [address], [place] [address] Dec, [facility] [address] [id number] [address] [place] [address], [place] [address] Dec, [facility] [address] [id number] [address] [place] [address], [place] [address] Nov, [facility] [address] [id number] [address] [place] [address], [place] [address] Nov, [facility] [address] [id number] [address] [place] [address], [place] [address] October, [facility] [address] [id number] [address] [place] [address], [place] [address] October, [facility] [address] [id number] [address] [place] [address], [place] [address] Sep, [facility] [address] [id number] [address] [place] [address], [place] [address] Sep, [facility] [address] [id number] [address] [place] [address], [place] [address] 08 Sep, 2013 [facility] [address] [id number] [address] [place] [address], [place] [address] Sep, [facility] [address] [id number] [address] [place] [address], [place] [address] Sep, [facility] [address] [id number] [address] [place] [address], [place] [address] Aug, [facility] [address] [id number] [address] [place] [address], [place] [address] Aug, [facility] [address] [id number] [address] [place] [address], [place] [address] Mar, [facility] [address] [id number] [address] [place] [address], [place] [address] Mar, [facility] [address] [id number] [address] [place] [address], [place] [address] Jan, [facility] [address] [id number] [address] [place] [address], [place] [address] Jan, [facility] [address] [id number] [address] [place] [address], [place] [address] Dec, [facility] [address] [id number] [address] [place] [address], [place] [address] Dec, [facility] [address] [id number] [address] [place] [address], [place] [address] Nov, [facility] [address] [id number] [address] [place] [address], [place] [address] Nov, [facility] [address] [id number] [address] [place] [address], [place] [address] Nov, [facility] [address] [id number] [address] [place] [address], [place] [address] Sep, [facility] [address] [id number] [address] [place] [address], [place] [address] Sep, [facility] [address] [id number] [address] [place] [address], [place] [address] Aug, [facility] [address] [id number] [address] [place] [address], [place] [address] Aug, [facility] [address] [id number] [address] [place] [address], [place] [address] Aug, [facility] [address] [id number] [address] [place] [address], [place] [address] Jul, [facility] [address] [id number] [address] [place] [address], [place] [address] Jul, [facility] [address] [id number] [address] [place] [address], [place] [address] May, [facility] [address] [id number] [address] [place] [address], [place] [address] May, [facility] [address] [id number] [address] [place] [address], [place] [address] Apr, [facility] [address] [id number] [address] [place] [address], [place] [address] Apr, [facility] [address] [id number] [address] [place] [address], [place] [address] Mar, [facility] [address] [id number] [address] [place] [address], [place] [address] Mar, [facility] [address] [id number] [address] [place] [address], [place] [address] Mar, [facility] [address] [id number] [address] [place] [address], [place] [address] Mar, [facility] [address] [id number] [address] [place] [address], [place] [address] Mar, [facility] [address] [id number] [address] [place] [address], [place] [address] Mar, [facility] [address] [id number] [address] [place] [address], [place] [address] Mar, [facility] [address] [id number] [address] [place] [address], [place] [address] Mar, [facility] [address] [id number] [address] [place] [address], [place] [address] Mar, [facility] [address] [id number] [address] [place] [address], [place] [address] Mar, [facility] [address] [id number] [address] [place] [address], [place] [address] Mar, [facility] [address] [id number] [address] [place] [address], [place] [address] 15 Mar, 2012 [facility] [address] [id number] [address] [place] [address], [place] [address] 15 Mar, 2012 [facility] [address] [id number] [address] [place] [address], [place] [address] 13 Feb, 2012 [facility] [address] [id number] [address] [place] [address], [place] [address] 06 Feb, 2012 [facility] [address] [id number] [address] [place] [address], [place] [address] 04 Feb, 2012 [facility] [address] [id number] [address] [place] [address], [place] [address] 16 Jan, 2012 [facility] [address] [id number] [address] [place] [address], [place] [address] Jan, [facility] [address] [id number] [address] [place] [address], [place] [address] October, [facility] [address] [id number] [address] [place] [address], [place] [address] Sep, [facility] [address] [id number] [address] [place] [address], [place] [address] Sep, [facility] [address] [id number] [address] [place] [address], [place] [address] Aug, [facility] [address] [id number] [address] [place] [address], [place] [address] Jul, [facility] [address] [id number] [address] [place] [address], [place] [address] Jul, [facility] [address] [id number] [address] [place] [address], [place] [address] Jul, [facility] [address] [id number] [address] [place] [address], [place] [address] Jul, [facility] [address] [id number] [address] [place] [address] Jun, [facility] [address] [facility] [id number] [address] [place] [address] May, IMMUNIZATIONS No Known Immunizations SOCIAL HISTORY Never Assessed REASON FOR VISIT PLAN OF CARE VITAL SIGNS Height 67 in 2013-02-06 Weight 205.58 lbs 2013-02-06 Temperature 98.5 degrees Fahrenheit 2013-02-06 Heart Rate 78 bpm 2013-02-06 Respiratory Rate 16 2013-02-06 Blood pressure systolic 130 mmHg 2013-02-06 Blood pressure diastolic 86 mmHg 2013-02-06 MEDICATIONS Unknown Medications RESULTS No Results PROCEDURES No Known procedures INSTRUCTIONS MEDICATIONS ADMINISTERED No Known Medications MEDICAL (GENERAL) HISTORY Type Description Date Medical History Type II DM Medical History Eye exam 10/2014 No retinopathy Medical History Hypercholesterolemia Surgical History heart cath 11/2018 Hospitalization History see surgeries
--- OUTSIDE RECORDS SUMMARY | 2019-11-09 19:33 | XMS REPORT ---
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 Name Role Phone CHIVO JOLLY Unavailable PROBLEMS Type Condition ICD9-CM Code ZDC88-BI Code Onset Dates Condition S tatus SNOMED Code Problem Moderate episode of recurrent major depressive disorder F33.1 Active 824649128 Problem High foot arch Q66.7 Active 01271 004 Problem Hyperlipemia E78.5 Active 3521578 4 Problem Type 2 diabetes mellitus with hyperglycemia E11.65 Active [id number] Problem Type 2 diabetes mellitus without complications E11 .9 Active 961487192 Problem Seasonal allergic rhinitis, unspecified allergic rhinitis trigger J30.2 Active [id number] ALLERGIES No Information ENCOUNTERS Encounter Location Date Diagnosis [address] [id number] [place] [address] Jun, [address] [id number] [place] [address] Apr, [facility] LEVI [facility] IN [facility] [address] [id number] [address] Apr, Acute rhinosinusitis J01.90 [facility] IN [facility] [address] [id number] [place] [address] Feb, Sore throat J02.9 and Acute non-recurrent maxillary sinusitis J01.[address] [id number] [place] [address] Jan, [address] [id number] [place] [address] Jan, [address] 340[address] [id number] [place] [address] Jan, [facility] [address] [id number] [place] [address] Jan, [facility] [address] [id number], [place] [address] Dec, [facility] [id number] [place] [address] Dec, [facility] [address] [id number], [place] [address] Dec, Type 2 diabetes mellitus wit h hyperglycemia E11.65 ; Immunization counseling Z71.89 ; Onychomycosis B35.1 ; Tinea pedis of both feet B35.3 and High foot arch Q66.7 [facility] [address] [id number] [place] [address] Dec, Type 2 diabetes mellitus wit h hyperglycemia E11.65 [facility] LEVI GOODWIN [address] 340[address] [id number], [place] [address] Nov, Type 2 diabetes mellitus wit h hyperglycemia E11.65 and Hyperlipemia E78.5 [facility] [address] [facility] [id number] [address] [place] [address] Nov, [facility] [address] [id number] [place] [address] Sep, Sinusitis acute J01.90 [facility] WALK IN [facility] [address] [facility] [id number] [address] [place] [address] Apr, Acute non-recurrent maxillar y sinusitis J01.00 and Acute nasopharyngitis J00 [facility] [address] [facility] [id number] [address] [place] [address] Mar, Type 2 diabetes mellitus wit hout complications E11.9 ; Moderate episode of recurrent major depressive disorder F33.1 and Hyperlipemia E78.5 [facility] [address] [facility] [id number] [address] [place] [address] Mar, [facility] [address] [facility] [id number] [address] [place] [address] Feb, [facility] [address] [address] Jan, [facility] [address] [facility] [id number] [address] [place] [address] Jan, Acute non-recurrent pansinus itis J01.40 [facility] [address] [address] Dec, Type 2 diabetes mellitus wit h hyperglycemia E11.65 [place] [address] [address] Jul, Type 2 diabetes mellitus wit h hyperglycemia E11.65 [place] [address] [address] Jun, Hyperlipemia E78.5 [facility] [address] [address] October, Strep throat J02.0 and Sore throat J02.9 [place] [address] [address] Aug, [facility] [address] [address] 14 Jul, 2016 Seasonal allergic rhinitis, unspecified allergic rhinitis trigger J30.2 [facility] [address] [address] Jun, Type 2 diabetes mellitus wit hout complications E11.9 [place] [address] [facility] [id number] [address] [place] [address] May, Type 2 diabetes mellitus wit h hyperglycemia E11.65 and Hyperlipemia E78.5 [place] [address] [place] [id number] [address] [place] [address] Mar, [facility] [address] [address] Mar, [facility] [address] [facility] [id number] [address] [place] [address] Feb, Type 2 diabetes mellitus wit hout complications E11.9 [facility] [address] [facility] [id number] [address] [place] [address] Feb, [facility] [address] [facility] [id number] [address] [place] [address] October, Type 2 diabetes mellitus wit h hyperglycemia E11.65 [facility] [address] [facility] [id number] [address] [place] [address] Aug, Hyperlipemia E78.5 [facility] [address] [facility] [id number] [address] [place] [address] Jul, Hyperlipemia E78.5 [facility] [address] [place] [id number] [address] [place] [address] Jul, Type 2 diabetes mellitus wit h complication E11.8 and Carpal tunnel syndrome G56.00 [facility] [address] [facility] [id number] [address] [place] [address] Jul, [facility] [address] [place] [id number] [address] [place] [address] Jul, [facility] [address] [place] [id number] [address] [place] [address] Feb, [facility] [address] [place] [id number] [address] [place] [address] Nov, [facility] [address] [place] [id number] [address] [place] [address] October, Diabetes mellitus without me ntion of complication, type II or unspecified type, not stated as uncontrolled 250.00 and Proteinuria 791.0 [facility] [address] [place] [id number] [address] [place] [address] Sep, [facility] [address] [id number] [address] [place] [address], [place] [address] 28 Sep, 2014 [facility] [address] [id number] [address] [place] [address], [place] [address] 14 Sep, 2014 [facility] [address] [id number] [address] [place] [address], [place] [address] 13 Sep, 2014 [facility] [address] [id number] [address] [place] [address], [place] [address] 24 Aug, 2014 [facility] [address] [id number] [address] [place] [address], [place] [address] 24 Aug, 2014 [facility] [address] [id number] [address] [place] [address], [place] [address] 24 Aug, 2014 [facility] [address] [id number] [address] [place] [address], [place] [address] 24 Aug, 2014 [facility] [address] [id number] [address] [place] [address], [place] [address] Apr, [facility] [address] [id number] [address] [place] [address], [place] [address] Apr, [facility] [address] [id number] [address] [place] [address], [place] [address] Mar, [facility] [address] [id number] [address] [place] [address], [place] [address] Mar, [facility] [address] [id number] [address] [place] [address], [place] [address] Mar, [facility] [address] [id number] [address] [place] [address], [place] [address] Mar, [facility] [address] [id number] [address] [place] [address], [place] [address] Mar, [facility] [address] [id number] [address] [place] [address], [place] [address] Feb, [facility] [address] [id number] [address] [place] [address], [place] [address] Feb, [facility] [address] [id number] [facility] [place] [address] Feb, [facility] [address] [id number] [address] [place] [address], [place] [address] Feb, [facility] [address] [id number] [address] [place] [address], [place] [address] Dec, [facility] [address] [id number] [address] [place] [address], [place] [address] Dec, [facility] [address] [id number] [address] [place] [address], [place] [address] Dec, [facility] [address] [id number] [address] [place] [address], [place] [address] Nov, [facility] [address] [id number] [address] [place] [address], [place] [address] Nov, [facility] [address] [id number] [address] [place] [address], [place] [address] October, [facility] [address] [id number] [address] [place] [address], [place] [address] October, [facility] [address] [id number] [address] [place] [address], [place] [address] Sep, [facility] [address] [id number] [address] [place] [address], [place] [address] Sep, [facility] [address] [id number] [address] [place] [address], [place] [address] 08 Sep, 2013 [facility] [address] [id number] [address] [place] [address], [place] [address] Sep, [facility] [address] [id number] [address] [place] [address], [place] [address] Sep, [facility] [address] [id number] [address] [place] [address], [place] [address] Aug, [facility] [address] [id number] [address] [place] [address], [place] [address] Aug, [facility] [address] [id number] [address] [place] [address], [place] [address] Mar, [facility] [address] [id number] [address] [place] [address], [place] [address] Mar, [facility] [address] [id number] [address] [place] [address], [place] [address] Jan, [facility] [address] [id number] [address] [place] [address], [place] [address] Jan, [facility] [address] [id number] [address] [place] [address], [place] [address] Dec, [facility] [address] [id number] [address] [place] [address], [place] [address] Dec, [facility] [address] [id number] [address] [place] [address], [place] [address] Nov, [facility] [address] [id number] [address] [place] [address], [place] [address] Nov, [facility] [address] [id number] [address] [place] [address], [place] [address] Nov, [facility] [address] [id number] [address] [place] [address], [place] [address] Sep, [facility] [address] [id number] [address] [place] [address], [place] [address] Sep, [facility] [address] [id number] [address] [place] [address], [place] [address] Aug, [facility] [address] [id number] [address] [place] [address], [place] [address] Aug, [facility] [address] [id number] [address] [place] [address], [place] [address] Aug, [facility] [address] [id number] [address] [place] [address], [place] [address] Jul, [facility] [address] [id number] [address] [place] [address], [place] [address] Jul, [facility] [address] [id number] [address] [place] [address], [place] [address] May, [facility] [address] [id number] [address] [place] [address], [place] [address] May, [facility] [address] [id number] [address] [place] [address], [place] [address] Apr, [facility] [address] [id number] [address] [place] [address], [place] [address] Apr, [facility] [address] [id number] [address] [place] [address], [place] [address] Mar, [facility] [address] [id number] [address] [place] [address], [place] [address] Mar, [facility] [address] [id number] [address] [place] [address], [place] [address] Mar, [facility] [address] [id number] [address] [place] [address], [place] [address] Mar, [facility] [address] [id number] [address] [place] [address], [place] [address] Mar, [facility] [address] [id number] [address] [place] [address], [place] [address] Mar, [facility] [address] [id number] [address] [place] [address], [place] [address] Mar, [facility] [address] [id number] [address] [place] [address], [place] [address] Mar, [facility] [address] [id number] [address] [place] [address], [place] [address] Mar, [facility] [address] [id number] [address] [place] [address], [place] [address] Mar, [facility] [address] [id number] [address] [place] [address], [place] [address] Mar, [facility] [address] [id number] [address] [place] [address], [place] [address] 15 Mar, 2012 [facility] [address] [id number] [address] [place] [address], [place] [address] 15 Mar, 2012 [facility] [address] [id number] [address] [place] [address], [place] [address] 13 Feb, 2012 [facility] [address] [id number] [address] [place] [address], [place] [address] 06 Feb, 2012 [facility] [address] [id number] [address] [place] [address], [place] [address] 04 Feb, 2012 [facility] [address] [id number] [address] [place] [address], [place] [address] 16 Jan, 2012 [facility] [address] [id number] [address] [place] [address], [place] [address] Jan, [facility] [address] [id number] [address] [place] [address], [place] [address] October, [facility] [address] [id number] [address] [place] [address], [place] [address] Sep, [facility] [address] [id number] [address] [place] [address], [place] [address] Sep, [facility] [address] [id number] [address] [place] [address], [place] [address] Aug, [facility] [address] [id number] [address] [place] [address], [place] [address] Jul, [facility] [address] [id number] [address] [place] [address], [place] [address] Jul, [facility] [address] [id number] [address] [place] [address], [place] [address] Jul, [facility] [address] [id number] [address] [place] [address], [place] [address] Jul, [facility] [address] [id number] [address] [place] [address] Jun, [facility] [address] [facility] [id number] [address] [place] [address] May, IMMUNIZATIONS No Known Immunizations SOCIAL HISTORY [...]
--- OUTSIDE RECORDS SUMMARY | 2019-11-09 19:33 | XMS REPORT ---
Author Author Kodi JOLLY Organization [facility] Address [address] [place] [address] Care Team Providers Care Chemist Organic Name Role Phone CHIVO JOLLY Unavailable PROBLEMS Type Condition ICD9-CM Code [id number] Code Onset Dates Condition S tatus SNOMED Code Problem Moderate episode of recurrent major depressive disorder F33.1 Active 133707707 Problem High foot arch Q66.7 Active 41598 004 Problem Hyperlipemia E78.5 Active 7817059 4 Problem Type 2 diabetes mellitus with hyperglycemia E11.65 Active [id number] Problem Type 2 diabetes mellitus without complications E11 .9 Active [id number] Problem Seasonal allergic rhinitis, unspecified allergic rhinitis trigger J30.2 Active [id number] ALLERGIES No Information ENCOUNTERS Encounter Location Date Diagnosis [facility] [address] [facility] [id number] [place] [address] Jun, [place] [id number] [facility] [id number] [place] [address] Apr, [facility] [place] [facility] [address] [place] [address] Apr, Acute rhinosinusitis J01.90 [facility] [address] [place] [address] Feb, Sore throat J02.9 and Acute non-recurrent maxillary sinusitis J01.[address] [place] [address] Jan, [address] [place] [address] Jan, [address] [place] [address] Jan, [facility] [place] [address] [place] [address] Jan, [facility] [place] [address] [place] [address] Dec, [facility] [place] [id number] [place] [address] Dec, [facility] [place] [address] [place] [address] Dec, Type 2 diabetes mellitus wit h hyperglycemia E11.65 ; Immunization counseling Z71.89 ; Onychomycosis B35.1 ; Tinea pedis of both feet B35.3 and High foot arch Q66.7 [facility] [place] [address] [place] [address] Dec, Type 2 diabetes mellitus wit h hyperglycemia E11.65 [address] [place] [address] Nov, Type 2 diabetes mellitus wit h hyperglycemia E11.65 and Hyperlipemia E78.5 [facility] [address] [id number] [place] [address] Nov, [facility] [place] [facility] [address] [place] [address] Sep, Sinusitis acute J01.90 [facility] [address] [facility] [id number] [place] [address] Apr, Acute non-recurrent maxillar y sinusitis J01.00 and Acute nasopharyngitis J00 [facility] [address] [id number] [place] [address] Mar, Type 2 diabetes mellitus without complic ations E11.9 ; Moderate episode of recurrent major depressive disorder F33.1 and Hyperlipemia E78.5 [facility] [address] [id number] [place] [address] Mar, [facility] [address] [id number] [place] [address] Feb, [place] [address] [place] [id number] [place] [address] Jan, [facility] [address] [place] [address] Jan, Acute non-recurrent pansinus itis J01.40 [place] [address] [address] Dec, Type 2 diabetes mellitus with hyperglyce primitivo E11.65 [place] [address] [address] Jul, Type 2 diabetes mellitus with hyperglyce primitivo E11.65 [place] [address] [address] Jun, Hyperlipemia E78.5 [facility] [place] [address] [place] [id number] [place] [address] October, Strep throat J02.0 and Sore throat J02.9 [place] [address] [address] Aug, [facility] [place] [address] [address] Jul, Seasonal allergic rhinitis, unspecified allergic rhinitis trigger J30.2 [place] [address] [address] Jun, Type 2 diabetes mellitus without complic ations E11.9 [place] [address] [address] May, Type 2 diabetes mellitus with hyperglyce primitivo E11.65 and Hyperlipemia E78.5 [place] [address] [address] Mar, [place] [address] [address] Mar, [place] [address] [address] Feb, Type 2 diabetes mellitus without complic ations E11.9 [facility] [address] [address] Feb, [facility] [address] [address] October, Type 2 diabetes mellitus with hyperglyce primitivo E11.65 [facility] [address] [address] Aug, Hyperlipemia E78.5 [facility] [address] [address] Jul, Hyperlipemia E78.5 [facility] [address] [address] 08 Jul, 2015 Type 2 diabetes mellitus with complicati on E11.8 and Carpal tunnel syndrome G56.00 [facility] [address] [address] Jul, [facility] [address] [address] Jul, [facility] [address] [address] Feb, [facility] [address] [address] Nov, [facility] [address] [address] October, Diabetes mellitus without mention of com plication, type II or unspecified type, not stated as uncontrolled 250.00 and Proteinuria 791.0 [facility] [address] [address] Sep, [facility] [address] [address] Sep, [facility] [address] [address] Sep, [facility] [address] [place] [address] Sep, 2014 [facility] [address] [id number] [place] [address] Aug, [facility] [address] [id number] [place] [address] Aug, [facility] [address] [id number] [place] [address] Aug, [facility] [address] [id number] [place] [address] Aug, [facility] [address] [id number] [place] [address] Apr, [facility] [address] [id number] [place] [address] Apr, [facility] [address] [id number] [place] [address] Mar, [facility] [address] [id number] [place] [address] Mar, [facility] [address] [id number] [place] [address] Mar, [facility] [address] [id number] [place] [address] Mar, [facility] [address] [id number] [place] [address] Mar, [facility] [address] [id number] [place] [address] Feb, 2013 [facility] [address] [id number] [place] [address] Feb, 2013 [facility] [address] [id number] [place] [address] Feb, 2013 [facility] [address] [id number] [place] [address] Feb, 2013 [facility] [address] [id number] [place] [address] Dec, [facility] [address] [id number] [place] [address] Dec, [facility] [address] [id number] [place] [address] Dec, [facility] [address] [id number] [place] [address] Nov, [facility] [address] [id number] [place] [address] Nov, [facility] [address] [id number] [place] [address] October, [facility] [address] [id number] [place] [address] October, [facility] [address] [id number] [place] [address] Sep, [facility] [address] [id number] [place] [address] Sep, [facility] [address] [id number] [place] [address] Sep, [facility] [address] [id number] [place] [address] Sep, [facility] [address] [id number] [place] [address] Sep, [facility] [address] [id number] [place] [address] Aug, [facility] [address] [id number] [place] [address] Aug, [facility] [address] [id number] [place] [address] Mar, [facility] [address] [id number] [place] [address] Mar, [facility] [address] [id number] [place] [address] Jan, [facility] [address] [id number] [place] [address] Jan, [facility] [address] [id number] [place] [address] Dec, [facility] [address] [id number] [facility] [place] [address] Dec, [facility] [address] [id number] [place] [address] Nov, [facility] [address] [id number] [place] [address] Nov, [facility] [address] [id number] [place] [address] Nov, [facility] [address] [id number] [place] [address] Sep, [facility] [address] [id number] [place] [address] Sep, [facility] [address] [id number] [place] [address] Aug, [facility] [address] [id number] [place] [address] Aug, [facility] [address] [id number] [place] [address] Aug, [facility] [address] [id number] [place] [address] Jul, [facility] [address] [id number] [place] [address] Jul, [facility] [address] [id number] [place] [address] May, [facility] [address] [id number] [place] [address] May, [facility] [address] [id number] [place] [address] Apr, [facility] [address] [id number] [place] [address] Apr, [facility] [address] [id number] [place] [address] Mar, [facility] [address] [id number] [place] [address] Mar, [facility] [address] [id number] [place] [address] Mar, [facility] [address] [id number] [place] [address] Mar, [facility] [address] [id number] [place] [address] Mar, [facility] [address] [id number] [place] [address] Mar, [facility] [address] [id number] [place] [address] Mar, [facility] [address] [id number] [place] [address] Mar, [facility] [address] [id number] [place] [address] Mar, [facility] [address] [id number] [place] [address] Mar, [facility] [address] [id number] [place] [address] Mar, [facility] [address] [id number] [place] [address] Mar, [facility] [address] [id number] [place] [address] 15 Mar, 2012 [facility] [address] [id number] [place] [address] 13 Feb, 2012 [facility] [address] [id number] [place] [address] 06 Sep2011 [facility] [address] [id number] [place] [address] 04 Feb, 2011 [facility] [address] [id number] [place] [address] 16 Jan, 2012 [facility] [address] [id number] [place] [address] Jan, [facility] [address] [id number] [place] [address] October, [facility] [address] [id number] [place] [address] Sep, [facility] [address] [place] [id number] [place] [address] Sep, [facility] [address] [place] [id number] [place] [address] Aug, [facility] [address] [place] [id number] [place] [address] Jul, [facility] [address] [place] [id number] [place] [address] Jul, [facility] [address] [place] [id number] [place] [address] Jul, [facility] [address] [id number] [place] [address] Jul, [facility] [address] [place] [id number] [place] [address] Jun, [facility] [address] [id number] [place] [address] May, IMMUNIZATIONS No Known Immunizations SOCIAL HISTORY [...]
--- OUTSIDE RECORDS SUMMARY | 2019-11-09 19:33 | XMS REPORT ---
Author Author Kodi JOLLY Organization [facility] Address [address] [place] [address] Care Team Providers Care Developing Machine Operator Name Role Phone CHIVO JOLLY Unavailable PROBLEMS Type Condition ICD9-CM Code [id number] Code Onset Dates Condition S tatus SNOMED Code Problem Moderate episode of recurrent major depressive disorder F33.1 Active 182706993 Problem High foot arch Q66.7 Active 02244 004 Problem Hyperlipemia E78.5 Active 6320895 4 Problem Type 2 diabetes mellitus with hyperglycemia E11.65 Active [id number] Problem Type 2 diabetes mellitus without complications E11 .9 Active 231347305 Problem Seasonal allergic rhinitis, unspecified allergic rhinitis trigger J30.2 Active [id number] ALLERGIES No Information ENCOUNTERS Encounter Location Date Diagnosis [address] [id number] [place] [address] Jun, [address] [id number] [place] [address] Apr, [facility] [address] [id number] [place] [address] Apr, Acute rhinosinusitis J01.90 [facility] IN [facility] [address] [id number] [place] [address] Feb, Sore throat J02.9 and Acute non-recurrent maxillary sinusitis J01.[address] [id number] [place] [address] Jan, [address] [id number] [place] [address] Jan, [address] [id number] [place] [address] Jan, [facility] [address] [id number] [place] [address] Jan, [facility] [address] 340[address] [id number], [place] [address] Dec, [facility] Schaefer55 [facility] [id number] [place] [address] Dec, [facility] GOODWIN [address] 340B [id number], [place] [address] Dec, Type 2 diabetes mellitus wit h hyperglycemia E11.65 ; Immunization counseling Z71.89 ; Onychomycosis B35.1 ; Tinea pedis of both feet B35.3 and High foot arch Q66.7 [facility] GOODWIN [address] 340[address] [id number] [place] [address] Dec, Type 2 diabetes mellitus wit h hyperglycemia E11.65 [facility] LEVI GOODWIN [address] 340B [id number], [place] [address] Nov, Type 2 diabetes mellitus wit h hyperglycemia E11.65 and Hyperlipemia E78.5 [facility] [address] [facility] [id number] [address] [place] [address] Nov, [facility] [address] [id number] [place] [address] Sep, Sinusitis acute J01.90 [facility] WALK IN [facility] [address] [facility] [id number] [address] [place] [address] Apr, Acute non-recurrent maxillar y sinusitis J01.00 and Acute nasopharyngitis J00 [facility] [address] [facility] [id number] [address] [place] [address] Mar, Type 2 diabetes mellitus wit hout complications E11.9 ; Moderate episode of recurrent major depressive disorder F33.1 and Hyperlipemia E78.5 [facility] [address] [facility] [id number] [address] [place] [address] Mar, [facility] [address] [facility] [id number] [address] [place] [address] Feb, [facility] [address] [address] Jan, [facility] [address] [facility] [id number] [address] [place] [address] Jan, Acute non-recurrent pansinus itis J01.40 [facility] [address] [address] Dec, Type 2 diabetes mellitus wit h hyperglycemia E11.65 [place] [address] [address] Jul, Type 2 diabetes mellitus wit h hyperglycemia E11.65 [place] [address] [address] Jun, Hyperlipemia E78.5 [facility] [address] [address] October, Strep throat J02.0 and Sore throat J02.9 [place] [address] [address] Aug, [facility] [address] [address] 14 Jul, 2016 Seasonal allergic rhinitis, unspecified allergic rhinitis trigger J30.2 [facility] [address] [address] Jun, Type 2 diabetes mellitus wit hout complications E11.9 [place] [address] [facility] [id number] [address] [place] [address] May, Type 2 diabetes mellitus wit h hyperglycemia E11.65 and Hyperlipemia E78.5 [place] [address] [place] [id number] [address] [place] [address] Mar, [facility] [address] [address] Mar, [facility] [address] [facility] [id number] [address] [place] [address] Feb, Type 2 diabetes mellitus wit hout complications E11.9 [facility] [address] [facility] [id number] [address] [place] [address] Feb, [facility] [address] [facility] [id number] [address] [place] [address] October, Type 2 diabetes mellitus wit h hyperglycemia E11.65 [facility] [address] [facility] [id number] [address] [place] [address] Aug, Hyperlipemia E78.5 [facility] [address] [facility] [id number] [address] [place] [address] Jul, Hyperlipemia E78.5 [facility] [address] [place] [id number] [address] [place] [address] Jul, Type 2 diabetes mellitus wit h complication E11.8 and Carpal tunnel syndrome G56.00 [facility] [address] [facility] [id number] [address] [place] [address] Jul, [facility] [address] [place] [id number] [address] [place] [address] Jul, [facility] [address] [place] [id number] [address] [place] [address] Feb, [facility] [address] [place] [id number] [address] [place] [address] Nov, [facility] [address] [place] [id number] [address] [place] [address] October, Diabetes mellitus without me ntion of complication, type II or unspecified type, not stated as uncontrolled 250.00 and Proteinuria 791.0 [facility] [address] [place] [id number] [address] [place] [address] Sep, [facility] [address] [id number] [address] [place] [address], [place] [address] 28 Sep, 2014 [facility] [address] [id number] [address] [place] [address], [place] [address] 14 Sep, 2014 [facility] [address] [id number] [address] [place] [address], [place] [address] 13 Sep, 2014 [facility] [address] [id number] [address] [place] [address], [place] [address] 24 Aug, 2014 [facility] [address] [id number] [address] [place] [address], [place] [address] 24 Aug, 2014 [facility] [address] [id number] [address] [place] [address], [place] [address] 24 Aug, 2014 [facility] [address] [id number] [address] [place] [address], [place] [address] 24 Aug, 2014 [facility] [address] [id number] [address] [place] [address], [place] [address] Apr, [facility] [address] [id number] [address] [place] [address], [place] [address] Apr, [facility] [address] [id number] [address] [place] [address], [place] [address] Mar, [facility] [address] [id number] [address] [place] [address], [place] [address] Mar, [facility] [address] [id number] [address] [place] [address], [place] [address] Mar, [facility] [address] [id number] [address] [place] [address], [place] [address] Mar, [facility] [address] [id number] [address] [place] [address], [place] [address] Mar, [facility] [address] [id number] [address] [place] [address], [place] [address] Feb, [facility] [address] [id number] [address] [place] [address], [place] [address] Feb, [facility] [address] [id number] [facility] [place] [address] Feb, [facility] [address] [id number] [address] [place] [address], [place] [address] Feb, [facility] [address] [id number] [address] [place] [address], [place] [address] Dec, [facility] [address] [id number] [address] [place] [address], [place] [address] Dec, [facility] [address] [id number] [address] [place] [address], [place] [address] Dec, [facility] [address] [id number] [address] [place] [address], [place] [address] Nov, [facility] [address] [id number] [address] [place] [address], [place] [address] Nov, [facility] [address] [id number] [address] [place] [address], [place] [address] October, [facility] [address] [id number] [address] [place] [address], [place] [address] October, [facility] [address] [id number] [address] [place] [address], [place] [address] Sep, [facility] [address] [id number] [address] [place] [address], [place] [address] Sep, [facility] [address] [id number] [address] [place] [address], [place] [address] 08 Sep, 2013 [facility] [address] [id number] [address] [place] [address], [place] [address] Sep, [facility] [address] [id number] [address] [place] [address], [place] [address] Sep, [facility] [address] [id number] [address] [place] [address], [place] [address] Aug, [facility] [address] [id number] [address] [place] [address], [place] [address] Aug, [facility] [address] [id number] [address] [place] [address], [place] [address] Mar, [facility] [address] [id number] [address] [place] [address], [place] [address] Mar, [facility] [address] [id number] [address] [place] [address], [place] [address] Jan, [facility] [address] [id number] [address] [place] [address], [place] [address] Jan, [facility] [address] [id number] [address] [place] [address], [place] [address] Dec, [facility] [address] [id number] [address] [place] [address], [place] [address] Dec, [facility] [address] [id number] [address] [place] [address], [place] [address] Nov, [facility] [address] [id number] [address] [place] [address], [place] [address] Nov, [facility] [address] [id number] [address] [place] [address], [place] [address] Nov, [facility] [address] [id number] [address] [place] [address], [place] [address] Sep, [facility] [address] [id number] [address] [place] [address], [place] [address] Sep, [facility] [address] [id number] [address] [place] [address], [place] [address] Aug, [facility] [address] [id number] [address] [place] [address], [place] [address] Aug, [facility] [address] [id number] [address] [place] [address], [place] [address] Aug, [facility] [address] [id number] [address] [place] [address], [place] [address] Jul, [facility] [address] [id number] [address] [place] [address], [place] [address] Jul, [facility] [address] [id number] [address] [place] [address], [place] [address] May, [facility] [address] [id number] [address] [place] [address], [place] [address] May, [facility] [address] [id number] [address] [place] [address], [place] [address] Apr, [facility] [address] [id number] [address] [place] [address], [place] [address] Apr, [facility] [address] [id number] [address] [place] [address], [place] [address] Mar, [facility] [address] [id number] [address] [place] [address], [place] [address] Mar, [facility] [address] [id number] [address] [place] [address], [place] [address] Mar, [facility] [address] [id number] [address] [place] [address], [place] [address] Mar, [facility] [address] [id number] [address] [place] [address], [place] [address] Mar, [facility] [address] [id number] [address] [place] [address], [place] [address] Mar, [facility] [address] [id number] [address] [place] [address], [place] [address] Mar, [facility] [address] [id number] [address] [place] [address], [place] [address] Mar, [facility] [address] [id number] [address] [place] [address], [place] [address] Mar, [facility] [address] [id number] [address] [place] [address], [place] [address] Mar, [facility] [address] [id number] [address] [place] [address], [place] [address] Mar, [facility] [address] [id number] [address] [place] [address], [place] [address] 15 Mar, 2012 [facility] [address] [id number] [address] [place] [address], [place] [address] 15 Mar, 2012 [facility] [address] [id number] [address] [place] [address], [place] [address] 13 Feb, 2012 [facility] [address] [id number] [address] [place] [address], [place] [address] 06 Feb, 2012 [facility] [address] [id number] [address] [place] [address], [place] [address] 04 Feb, 2012 [facility] [address] [id number] [address] [place] [address], [place] [address] 16 Jan, 2012 [facility] [address] [id number] [address] [place] [address], [place] [address] Jan, [facility] [address] [id number] [address] [place] [address], [place] [address] October, [facility] [address] [id number] [address] [place] [address], [place] [address] Sep, [facility] [address] [id number] [address] [place] [address], [place] [address] Sep, [facility] [address] [id number] [address] [place] [address], [place] [address] Aug, [facility] [address] [id number] [address] [place] [address], [place] [address] Jul, [facility] [address] [id number] [address] [place] [address], [place] [address] Jul, [facility] [address] [id number] [address] [place] [address], [place] [address] Jul, [facility] [address] [id number] [address] [place] [address], [place] [address] Jul, [facility] [address] [id number] [address] [place] [address] Jun, [facility] [address] [facility] [id number] [address] [place] [address] May, IMMUNIZATIONS No Known Immunizations SOCIAL HISTORY Never Assessed REASON FOR VISIT PLAN OF CARE VITAL SIGNS Height 67 in 2014-04-12 Weight 218.1 lbs 2014-04-12 Temperature 97.9 degrees Fahrenheit 2014-04-12 Heart Rate 88 bpm 2014-04-12 Respiratory Rate 20 2014-04-12 Blood pressure systolic 142 mmHg 2014-04-12 Blood pressure diastolic 80 mmHg 2014-04-12 MEDICATIONS Unknown Medications RESULTS No Results PROCEDURES Procedure Date Ordered Result Body Site GLYCATED HEMOGLOBIN TEST Apr 12, 2014 MICROALBUMIN, SEMIQUANT Apr 12, 2014 MICROALBUMIN, QUANTITATIVE Apr 12, 2014 INSTRUCTIONS MEDICATIONS ADMINISTERED No Known Medications MEDICAL (GENERAL) HISTORY Type Description Date Medical History Type II DM Medical History Eye exam 10/2014 No retinopathy Medical History Hypercholesterolemia Surgical History heart cath 11/2018 Hospitalization History see surgeries
--- OUTSIDE RECORDS SUMMARY | 2019-11-09 19:34 | XMS REPORT ---
Author Author Kodi Armando Doctor Organization [facility] Address Unknown Phone Unavailable Care Team Providers Care Chinese Language Professor Name Role Phone Migration, Doctor Unavailable Unavailable PROBLEMS Type Condition ICD9-CM Code OGI13-WU Code Onset Dates Condition S tatus SNOMED Code Problem Moderate episode of recurrent major depressive disorder F33.1 Active 815023856 Problem High foot arch Q66.7 Active 34593 004 Problem Hyperlipemia E78.5 Active 0591728 4 Problem Type 2 diabetes mellitus with hyperglycemia E11.65 Active [id number] Problem Type 2 diabetes mellitus without complications E11 .9 Active [id number] Problem Seasonal allergic rhinitis, unspecified allergic rhinitis trigger J30.2 Active [id number] ALLERGIES No Information ENCOUNTERS Encounter Location Date Diagnosis [address] [address] Apr, [address] [address] Dec, [facility] [id number] [place] [address] Dec, [address] [address] Dec, Type 2 diabetes mellitus with hyperglyce primitivo E11.65 ; Immunization counseling Z71.89 ; Onychomycosis B35.1 ; Tinea pedis of both feet B35.3 and High foot arch Q66.[address] [address] Dec, Type 2 diabetes mellitus with hyperglyce primitivo E11.[address] [address] Nov, Type 2 diabetes mellitus with hyperglyce primitivo E11.65 and Hyperlipemia E78.5 [facility] [address] [facility] [id number] [address] [place] [address] Nov, [facility] [address] [place] [address] Sep, Sinusitis acute J01.90 [facility] [address] [facility] [id number] [address] [place] [address] Apr, Acute non-recurrent maxillar y sinusitis J01.00 and Acute nasopharyngitis J00 [facility] [address] [facility] [id number] [address] [place] [address] Mar, Type 2 diabetes mellitus wit hout complications E11.9 ; Moderate episode of recurrent major depressive disorder F33.1 and Hyperlipemia E78.5 [facility] [address] [facility] [id number] [address] [place] [address] Mar, [facility] [address] [facility] [id number] [address] [place] [address] Feb, [facility] [address] [facility] [id number] [address] [place] [address] Jan, [facility] [address] [facility] [id number] [address] [place] [address] Jan, Acute non-recurrent pansinus itis J01.40 [facility] [address] [facility] [id number] [address] [place] [address] Dec, Type 2 diabetes mellitus wit h hyperglycemia E11.65 [facility] [address] [facility] [id number] [address] [place] [address] Jul, Type 2 diabetes mellitus wit h hyperglycemia E11.65 [facility] [address] [facility] [id number] [address] [place] [address] Jun, Hyperlipemia E78.5 [facility] [address] [facility] [id number] [address] [place] [address] October, Strep throat J02.0 and Sore throat J02.9 [facility] [address] [facility] [id number] [address] [place] [address] Aug, [facility] [address] [facility] [id number] [address] [place] [address] 14 Jul, 2016 Seasonal allergic rhinitis, unspecified allergic rhinitis trigger J30.2 [facility] [address] [facility] [id number] [address] [place] [address] Jun, Type 2 diabetes mellitus wit hout complications E11.9 [facility] [address] [facility] [id number] [address] [place] [address] May, Type 2 diabetes mellitus wit h hyperglycemia E11.65 and Hyperlipemia E78.5 [facility] [address] [facility] [id number] [address] [place] [address] Mar, [facility] [address] [facility] [id number] [address] [place] [address] Mar, [facility] [address] [facility] [id number] [address] [place] [address] Feb, Type 2 diabetes mellitus wit hout complications E11.9 [facility] [address] [facility] [id number] [address] [place] [address] Feb, [facility] [address] [facility] [id number] [address] [place] [address] October, Type 2 diabetes mellitus wit h hyperglycemia E11.65 [facility] [address] [facility] [id number] [address] [place] [address] Aug, Hyperlipemia E78.5 [facility] [address] [facility] [id number] [address] [place] [address] 10 Jul, 2015 Hyperlipemia E78.5 [facility] [address] [facility] [id number] [address] [place] [address] 08 Jul, 2015 Type 2 diabetes mellitus wit h complication E11.8 and Carpal tunnel syndrome G56.00 [facility] [address] [facility] [id number] [address] [place] [address] 05 Jul, 2015 [facility] [address] [facility] [id number] [address] [place] [address] Jul, [facility] [address] [id number] [address] [place] [address] Feb, [facility] [address] [id number] [address] [place] [address] Nov, [facility] [address] [id number] [address] [place] [address] October, Diabetes mellitus without me ntion of complication, type II or unspecified type, not stated as uncontrolled 250.00 and Proteinuria 791.0 [facility] [address] [id number] [address] [place] [address] Sep, [facility] [address] [id number] [address] [place] [address] Sep, [facility] [address] [id number] [address] [place] [address] Sep, [facility] [address] [id number] [address] [place] [address] Sep, [facility] [address] [id number] [address] [place] [address] Aug, [facility] [address] [id number] [address] [place] [address] Aug, [facility] [address] [id number] [address] [place] [address] Aug, [facility] [address] [id number] [address] [place] [address] Aug, [facility] [address] [id number] [address] [place] [address] Apr, [facility] [address] [id number] [address] [place] [address] Apr, [facility] [address] [id number] [address] [place] [address] Mar, [facility] [address] [id number] [address] [place] [address] Mar, [facility] [address] [id number] [address] [place] [address], [place] [address] Mar, [facility] [address] [id number] [address] [place] [address], [place] [address] Mar, [facility] [address] [id number] [address] [place] [address], [place] [address] Mar, [facility] [address] [id number] [address] [place] [address], [place] [address] Feb, [facility] [address] [id number] [address] [place] [address], [place] [address] Feb, [facility] [address] [id number] [address] [place] [address], [place] [address] Feb, [facility] [address] [id number] [address] [place] [address], [place] [address] Feb, [facility] [address] [id number] [address] [place] [address], [place] [address] Dec, [facility] [address] [id number] [address] [place] [address], [place] [address] Dec, [facility] [address] [id number] [address] [place] [address], [place] [address] Dec, [facility] [address] [id number] [address] [place] [address], [place] [address] Nov, [facility] [address] [id number] [address] [place] [address], [place] [address] Nov, [facility] [address] [id number] [address] [place] [address], [place] [address] October, [facility] [address] [id number] [address] [place] [address], [place] [address] October, [facility] [address] [id number] [address] [place] [address], [place] [address] Sep, [facility] [address] [id number] [address] [place] [address], [place] [address] 10 Sep, 2013 [facility] [address] [id number] [address] [place] [address], [place] [address] 08 Sep, 2013 [facility] [address] [id number] [address] [place] [address], [place] [address] Sep, [facility] [address] [id number] [address] [place] [address], [place] [address] Sep, [facility] [address] [id number] [address] [place] [address], [place] [address] Aug, [facility] [address] [id number] [address] [place] [address], [place] [address] Aug, [facility] [address] [id number] [address] [place] [address], [place] [address] Mar, [facility] [address] [id number] [address] [place] [address], [place] [address] Mar, [facility] [address] [id number] [address] [place] [address], [place] [address] Jan, [facility] [address] [id number] [address] [place] [address], [place] [address] Jan, [facility] [address] [id number] [address] [place] [address], [place] [address] Dec, [facility] [address] [id number] [address] [place] [address], [place] [address] Dec, [facility] [address] [id number] [address] [place] [address], [place] [address] Nov, [facility] [address] [id number] [address] [place] [address], [place] [address] Nov, [facility] [address] [id number] [address] [place] [address], [place] [address] Nov, [facility] [address] [id number] [address] [place] [address], [place] [address] Sep, [facility] [address] [id number] [address] [place] [address], [place] [address] Sep, [facility] [address] [id number] [address] [place] [address], [place] [address] Aug, [facility] [address] [id number] [address] [place] [address], [place] [address] Aug, [facility] [address] [id number] [address] [place] [address], [place] [address] Aug, [facility] [address] [id number] [address] [place] [address], [place] [address] Jul, [facility] [address] [id number] [address] [place] [address], [place] [address] Jul, [facility] [address] [id number] [address] [place] [address], [place] [address] May, [facility] [address] [id number] [address] [place] [address], [place] [address] May, [facility] [address] [id number] [address] [place] [address], [place] [address] Apr, [facility] [address] [id number] [address] [place] [address], [place] [address] Apr, [facility] [address] [id number] [address] [place] [address], [place] [address] Mar, [facility] [address] [id number] [address] [place] [address], [place] [address] Mar, [facility] [address] [id number] [address] [place] [address], [place] [address] Mar, [facility] [address] [id number] [address] [place] [address], [place] [address] Mar, [facility] [address] [id number] [address] [place] [address], [place] [address] Mar, [facility] [address] [id number] [address] [place] [address], [place] [address] 29 Mar, 2012 [facility] [address] [id number] [address] [place] [address], [place] [address] Mar, [facility] [address] [id number] [address] [place] [address], [place] [address] Mar, [facility] [address] [id number] [address] [place] [address], [place] [address] Mar, [facility] [address] [id number] [address] [place] [address], [place] [address] Mar, [facility] [address] [id number] [address] [place] [address], [place] [address] Mar, [facility] [address] [id number] [address] [place] [address], [place] [address] Mar, [facility] [address] [id number] [address] [place] [address], [place] [address] 15 Mar, 2012 [facility] [address] [id number] [address] [place] [address], [place] [address] 13 Feb, 2012 [facility] [address] [id number] [address] [place] [address], [place] [address] 06 Feb, 2012 [facility] [address] [id number] [address] [place] [address], [place] [address] 04 Feb, 2012 [facility] [address] [id number] [address] [place] [address], [place] [address] 16 Jan, 2012 [facility] [address] [id number] [address] [place] [address], [place] [address] 13 Jan, 2012 [facility] [address] [id number] [address] [place] [address], [place] [address] October, [facility] [address] [id number] [address] [place] [address], [place] [address] 18 Sep, 2011 [facility] [address] [id number] [address] [place] [address], [place] [address] Sep, [facility] [address] [facility] [id number] [address] [place] [address] Aug, [facility] [address] [facility] [id number] [address] [place] [address] Jul, [facility] [address] [facility] [id number] [address] [place] [address] Jul, [facility] [address] [facility] [id number] [address] [place] [address] Jul, [facility] [address] [facility] [id number] [address] [place] [address] Jul, [facility] [address] [facility] [id number] [address] [place] [address] Jun, [facility] [address] [facility] [id number] [address] [place] [address] May, IMMUNIZATIONS No Known Immunizations SOCIAL HISTORY [...]
--- OUTSIDE RECORDS SUMMARY | 2019-11-09 19:34 | XMS REPORT ---
Author Author Kodi JOLLY Organization [facility] Address [address] [place] [address] Care Team Providers Care Carrier Washer Name Role Phone CHIVO JOLLY Unavailable PROBLEMS Type Condition ICD9-CM Code [id number] Code Onset Dates Condition S tatus SNOMED Code Problem Moderate episode of recurrent major depressive disorder F33.1 Active 578223349 Problem High foot arch Q66.7 Active 84283 004 Problem Hyperlipemia E78.5 Active 1679351 4 Problem Type 2 diabetes mellitus with hyperglycemia E11.65 Active 438231482099834 Problem Type 2 diabetes mellitus without complications E11 .9 Active 776433409 Problem Seasonal allergic rhinitis, unspecified allergic rhinitis trigger J30.2 Active [id number] ALLERGIES No Information ENCOUNTERS Encounter Location Date Diagnosis [facility] [address] [facility] [id number] [place] [address] Jun, [place] [id number] [facility] [place] [id number] [place] [address] Apr, [facility] [address] [place] [address] Apr, Acute rhinosinusitis J01.90 [facility] IN [facility] [address] [place] [address] Feb, Sore throat J02.9 and Acute non-recurrent maxillary sinusitis J01.[address] [place] [address] Jan, [address] [place] [address] Jan, [address] [place] [address] Jan, [facility] [address] [place] [address] Jan, [facility] [address] [place] [address] Dec, [facility] [address] [id number] [place] [address] Dec, [facility] [address] [place] [address] Dec, Type 2 diabetes mellitus wit h hyperglycemia E11.65 ; Immunization counseling Z71.89 ; Onychomycosis B35.1 ; Tinea pedis of both feet B35.3 and High foot arch Q66.7 [facility] [address] [place] [address] Dec, Type 2 diabetes mellitus wit h hyperglycemia E11.65 [address] [place] [address] Nov, Type 2 diabetes mellitus wit h hyperglycemia E11.65 and Hyperlipemia E78.5 [facility] [address] [id number] [place] [address] Nov, [facility] [address] [place] [address] Sep, Sinusitis acute J01.90 [facility] WALK IN [facility] [address] [facility] [id number] [place] [address] Apr, Acute non-recurrent maxillar y sinusitis J01.00 and Acute nasopharyngitis J00 [facility] [address] [id number] [place] [address] Mar, Type 2 diabetes mellitus without complic ations E11.9 ; Moderate episode of recurrent major depressive disorder F33.1 and Hyperlipemia E78.5 [facility] [address] [id number] [place] [address] Mar, [facility] [address] [id number] [place] [address] Feb, [place] [address] [place] [id number] [place] [address] Jan, [facility] [address] [place] [address] Jan, Acute non-recurrent pansinus itis J01.40 [place] [address] [address] Dec, Type 2 diabetes mellitus with hyperglyce primitivo E11.65 [place] [address] [address] Jul, Type 2 diabetes mellitus with hyperglyce primitivo E11.65 [place] [address] [address] Jun, Hyperlipemia E78.5 [facility] WALK IN [place] [address] [place] [id number] [place] [address] October, Strep throat J02.0 and Sore throat J02.9 [place] [address] [address] Aug, [facility] WALK IN [place] [address] [address] Jul, Seasonal allergic rhinitis, unspecified allergic rhinitis trigger J30.2 [place] [address] [address] Jun, Type 2 diabetes mellitus without complic ations E11.9 [place] [address] [address] May, Type 2 diabetes mellitus with hyperglyce primitivo E11.65 and Hyperlipemia E78.5 [place] [address] [address] Mar, [place] [address] [address] Mar, [place] [address] [address] Feb, Type 2 diabetes mellitus without complic ations E11.9 [facility] [address] [address] Feb, [facility] [address] [address] October, Type 2 diabetes mellitus with hyperglyce primitivo E11.65 [facility] [address] [address] Aug, Hyperlipemia E78.5 [facility] [address] [address] Jul, Hyperlipemia E78.5 [facility] [address] [address] 08 Jul, 2015 Type 2 diabetes mellitus with complicati on E11.8 and Carpal tunnel syndrome G56.00 [facility] [address] [address] Jul, [facility] [address] [address] Jul, [facility] [address] [address] Feb, [facility] [address] [address] Nov, [facility] [address] [address] October, Diabetes mellitus without mention of com plication, type II or unspecified type, not stated as uncontrolled 250.00 and Proteinuria 791.0 [facility] [address] [address] Sep, [facility] [address] [address] Sep, [facility] [address] [address] Sep, [facility] [address] [place] [address] Sep, 2014 [facility] [address] [id number] [place] [address] Aug, [facility] [address] [id number] [place] [address] Aug, [facility] [address] [id number] [place] [address] Aug, [facility] [address] [id number] [place] [address] Aug, [facility] [address] [id number] [place] [address] Apr, [facility] [address] [id number] [place] [address] Apr, [facility] [address] [id number] [place] [address] Mar, [facility] [address] [id number] [place] [address] Mar, [facility] [address] [id number] [place] [address] Mar, [facility] [address] [id number] [place] [address] Mar, [facility] [address] [id number] [place] [address] Mar, [facility] [address] [id number] [place] [address] Feb, 2013 [facility] [address] [id number] [place] [address] Feb, 2013 [facility] [address] [id number] [place] [address] Feb, 2013 [facility] [address] [id number] [place] [address] Feb, 2013 [facility] [address] [id number] [place] [address] Dec, [facility] [address] [id number] [place] [address] Dec, [facility] [address] [id number] [place] [address] Dec, [facility] [address] [id number] [place] [address] Nov, [facility] [address] [id number] [place] [address] Nov, [facility] [address] [id number] [place] [address] October, [facility] [address] [id number] [place] [address] October, [facility] [address] [id number] [place] [address] Sep, [facility] [address] [id number] [place] [address] Sep, [facility] [address] [id number] [place] [address] Sep, [facility] [address] [id number] [place] [address] Sep, [facility] [address] [id number] [place] [address] Sep, [facility] [address] [id number] [place] [address] Aug, [facility] [address] [id number] [place] [address] Aug, [facility] [address] [id number] [place] [address] Mar, [facility] [address] [id number] [place] [address] Mar, [facility] [address] [id number] [place] [address] Jan, [facility] [address] [id number] [place] [address] Jan, [facility] [address] [id number] [place] [address] Dec, [facility] [address] [id number] [facility] [place] [address] Dec, [facility] [address] [id number] [place] [address] Nov, [facility] [address] [id number] [place] [address] Nov, [facility] [address] [id number] [place] [address] Nov, [facility] [address] [id number] [place] [address] Sep, [facility] [address] [id number] [place] [address] Sep, [facility] [address] [id number] [place] [address] Aug, [facility] [address] [id number] [place] [address] Aug, [facility] [address] [id number] [place] [address] Aug, [facility] [address] [id number] [place] [address] Jul, [facility] [address] [id number] [place] [address] Jul, [facility] [address] [id number] [place] [address] May, [facility] [address] [id number] [place] [address] May, [facility] [address] [id number] [place] [address] Apr, [facility] [address] [id number] [place] [address] Apr, [facility] [address] [id number] [place] [address] Mar, [facility] [address] [id number] [place] [address] Mar, [facility] [address] [id number] [place] [address] Mar, [facility] [address] [id number] [place] [address] Mar, [facility] [address] [id number] [place] [address] Mar, [facility] [address] [id number] [place] [address] Mar, [facility] [address] [id number] [place] [address] Mar, [facility] [address] [id number] [place] [address] Mar, [facility] [address] [id number] [place] [address] Mar, [facility] [address] [id number] [place] [address] Mar, [facility] [address] [id number] [place] [address] Mar, [facility] [address] [id number] [place] [address] Mar, [facility] [address] [id number] [place] [address] 15 Mar, 2012 [facility] [address] [id number] [place] [address] 13 Feb, 2012 [facility] [address] [id number] [place] [id number] 06 Sep2011 [facility] [address] [id number] [place] [address] 04 Feb, 2011 [facility] [address] [id number] [place] [address] 16 Jan, 2012 [facility] [address] [id number] [place] [address] Jan, [facility] [address] [id number] [place] [address] October, [facility] [address] [id number] [place] [address] Sep, [facility] [address] [place] [id number] [place] [address] Sep, [facility] [address] [place] [id number] [place] [address] Aug, [facility] [address] [place] [id number] [place] [address] Jul, [facility] [address] [place] [id number] [place] [address] Jul, [facility] [address] [place] [id number] [place] [address] Jul, [facility] [address] [id number] [place] [address] Jul, [facility] [address] [place] [id number] [place] [address] Jun, [facility] [address] [id number] [place] [address] May, IMMUNIZATIONS No Known Immunizations SOCIAL HISTORY [...]
--- OUTSIDE RECORDS SUMMARY | 2019-11-09 19:34 | XMS REPORT ---
Author Author Kodi JOLLY Organization [facility] Address [address] [place] [address] Care Team Providers Care Commercial Credit Reviewer Name Role Phone CHIVO JOLLY Unavailable PROBLEMS Type Condition ICD9-CM Code OOR05-AC Code Onset Dates Condition S tatus SNOMED Code Problem Moderate episode of recurrent major depressive disorder F33.1 Active 794302080 Problem High foot arch Q66.7 Active 71815 004 Problem Hyperlipemia E78.5 Active 7367779 4 Problem Type 2 diabetes mellitus with hyperglycemia E11.65 Active 142068857853402 Problem Type 2 diabetes mellitus without complications E11 .9 Active 842201752 Problem Seasonal allergic rhinitis, unspecified allergic rhinitis trigger J30.2 Active [id number] ALLERGIES No Information ENCOUNTERS Encounter Location Date Diagnosis [facility] [address] [facility] [id number] [address] Jun, [place] [id number] [facility] [id number] [place] [address] Apr, [facility] [address] [place] [address] Apr, Acute rhinosinusitis J01.90 [facility] [address] [place] [address] Feb, Sore throat J02.9 and Acute non-recurrent maxillary sinusitis J01.[address] [place] [address] Jan, [address] [place] [address] Jan, [address] [place] [address] Jan, [facility] [place] [address] [place] [address] Jan, [facility] [place] [address] [place] [address] Dec, [facility] [place] [id number] [place] [address] Dec, [facility] [place] [address] [place] [address] Dec, Type 2 diabetes mellitus wit h hyperglycemia E11.65 ; Immunization counseling Z71.89 ; Onychomycosis B35.1 ; Tinea pedis of both feet B35.3 and High foot arch Q66.7 [facility] [place] [address] [place] [address] Dec, Type 2 diabetes mellitus wit h hyperglycemia E11.65 [address] [place] [address] Nov, Type 2 diabetes mellitus wit h hyperglycemia E11.65 and Hyperlipemia E78.5 [facility] [address] [id number] [place] [address] Nov, [facility] [address] [place] [address] Sep, Sinusitis acute J01.90 [facility] [address] [facility] [id number] [address] [place] [address] Apr, Acute non-recurrent maxillar y sinusitis J01.00 and Acute nasopharyngitis J00 [facility] [address] [id number] [place] [address] Mar, Type 2 diabetes mellitus without complic ations E11.9 ; Moderate episode of recurrent major depressive disorder F33.1 and Hyperlipemia E78.5 [facility] [address] [id number] [place] [address] Mar, [facility] [address] [id number] [place] [address] Feb, [place] [address] [place] [id number] [place] [address] Jan, [facility] [address] [place] [address] Jan, Acute non-recurrent pansinus itis J01.40 [place] [address] [address] Dec, Type 2 diabetes mellitus with hyperglyce primitivo E11.65 [place] [address] [address] Jul, Type 2 diabetes mellitus with hyperglyce primitivo E11.65 [place] [address] [address] Jun, Hyperlipemia E78.5 [facility] [place] [address] [place] [id number] [place] [address] October, Strep throat J02.0 and Sore throat J02.9 [place] [address] [address] Aug, [facility] [place] [address] [address] Jul, Seasonal allergic rhinitis, unspecified allergic rhinitis trigger J30.2 [place] [address] [address] Jun, Type 2 diabetes mellitus without complic ations E11.9 [place] [address] [address] May, Type 2 diabetes mellitus with hyperglyce primitivo E11.65 and Hyperlipemia E78.5 [place] [address] [address] Mar, [place] [address] [address] Mar, [place] [address] [address] Feb, Type 2 diabetes mellitus without complic ations E11.9 [facility] [address] [address] Feb, [facility] [address] [address] October, Type 2 diabetes mellitus with hyperglyce primitivo E11.65 [facility] [address] [address] Aug, Hyperlipemia E78.5 [facility] [address] [address] Jul, Hyperlipemia E78.5 [facility] [address] [address] 08 Jul, 2015 Type 2 diabetes mellitus with complicati on E11.8 and Carpal tunnel syndrome G56.00 [facility] [address] [address] Jul, [facility] [address] [address] Jul, [facility] [address] [address] Feb, [facility] [address] [address] Nov, [facility] [address] [address] October, Diabetes mellitus without mention of com plication, type II or unspecified type, not stated as uncontrolled 250.00 and Proteinuria 791.0 [facility] [address] [address] Sep, [facility] [address] [address] Sep, [facility] [address] [address] Sep, [facility] [address] [place] [address] Sep, 2014 [facility] [address] [id number] [place] [address] Aug, [facility] [address] [id number] [place] [address] Aug, [facility] [address] [id number] [place] [address] Aug, [facility] [address] [id number] [place] [address] Aug, [facility] [address] [id number] [place] [address] Apr, [facility] [address] [id number] [place] [address] Apr, [facility] [address] [id number] [place] [address] Mar, [facility] [address] [id number] [place] [address] Mar, [facility] [address] [id number] [place] [address] Mar, [facility] [address] [id number] [place] [address] Mar, [facility] [address] [id number] [place] [address] Mar, [facility] [address] [id number] [place] [address] Feb, 2013 [facility] [address] [id number] [place] [address] Feb, 2013 [facility] [address] [id number] [place] [address] Feb, 2013 [facility] [address] [id number] [place] [address] Feb, 2013 [facility] [address] [id number] [place] [address] Dec, [facility] [address] [id number] [place] [address] Dec, [facility] [address] [id number] [place] [address] Dec, [facility] [address] [id number] [place] [address] Nov, [facility] [address] [id number] [place] [address] Nov, [facility] [address] [id number] [place] [address] October, [facility] [address] [id number] [place] [address] October, [facility] [address] [id number] [place] [address] Sep, [facility] [address] [id number] [place] [address] Sep, [facility] [address] [id number] [place] [address] Sep, [facility] [address] [id number] [place] [address] Sep, [facility] [address] [id number] [place] [address] Sep, [facility] [address] [id number] [place] [address] Aug, [facility] [address] [id number] [place] [address] Aug, [facility] [address] [id number] [place] [address] Mar, [facility] [address] [id number] [place] [address] Mar, [facility] [address] [id number] [place] [address] Jan, [facility] [address] [id number] [place] [address] Jan, [facility] [address] [id number] [place] [address] Dec, [facility] [address] [id number] [facility] [place] [address] Dec, [facility] [address] [id number] [place] [address] Nov, [facility] [address] [id number] [place] [address] Nov, [facility] [address] [id number] [place] [address] Nov, [facility] [address] [id number] [place] [address] Sep, [facility] [address] [id number] [place] [address] Sep, [facility] [address] [id number] [place] [address] Aug, [facility] [address] [id number] [place] [address] Aug, [facility] [address] [id number] [place] [address] Aug, [facility] [address] [id number] [place] [address] Jul, [facility] [address] [id number] [place] [address] Jul, [facility] [address] [id number] [place] [address] May, [facility] [address] [id number] [place] [address] May, [facility] [address] [id number] [place] [address] Apr, [facility] [address] [id number] [place] [address] Apr, [facility] [address] [id number] [place] [address] Mar, [facility] [address] [id number] [place] [address] Mar, [facility] [address] [id number] [place] [address] Mar, [facility] [address] [id number] [place] [address] Mar, [facility] [address] [id number] [place] [address] Mar, [facility] [address] [id number] [place] [address] Mar, [facility] [address] [id number] [place] [address] Mar, [facility] [address] [id number] [place] [address] Mar, [facility] [address] [id number] [place] [address] Mar, [facility] [address] [id number] [place] [address] Mar, [facility] [address] [id number] [place] [address] Mar, [facility] [address] [id number] [place] [address] Mar, [facility] [address] [id number] [place] [address] 15 Mar, 2012 [facility] [address] [id number] [place] [address] 13 Feb, 2012 [facility] [address] [id number] [place] [address] 06 Sep2011 [facility] [address] [id number] [place] [address] 04 Feb, 2011 [facility] [address] [id number] [place] [address] 16 Jan, 2012 [facility] [address] [id number] [place] [address] Jan, [facility] [address] [id number] [place] [address] October, [facility] [address] [id number] [place] [address] Sep, [facility] [address] [place] [id number] [place] [address] Sep, [facility] [address] [place] [id number] [place] [address] Aug, [facility] [address] [place] [id number] [place] [address] Jul, [facility] [address] [place] [id number] [place] [address] Jul, [facility] [address] [place] [id number] [place] [address] Jul, [facility] [address] [id number] [place] [address] Jul, [facility] [address] [place] [id number] [place] [address] Jun, [facility] [address] [id number] [place] [address] May, IMMUNIZATIONS No Known Immunizations SOCIAL HISTORY [...]
--- OUTSIDE RECORDS SUMMARY | 2019-11-09 19:34 | XMS REPORT ---
Author Author Kodi JOLLY Organization [facility] Address [address] [place] [address] Care Team Providers Care Flamer After Lasting Name Role Phone CHIVO JOLLY Unavailable PROBLEMS Type Condition ICD9-CM Code VYA73-OV Code Onset Dates Condition S tatus SNOMED Code Problem Moderate episode of recurrent major depressive disorder F33.1 Active 570439669 Problem High foot arch Q66.7 Active 71992 004 Problem Hyperlipemia E78.5 Active 6763647 4 Problem Type 2 diabetes mellitus with hyperglycemia E11.65 Active [id number] Problem Type 2 diabetes mellitus without complications E11 .9 Active 876596354 Problem Seasonal allergic rhinitis, unspecified allergic rhinitis trigger J30.2 Active [id number] ALLERGIES No Information ENCOUNTERS Encounter Location Date Diagnosis [address] [address] Apr, [address] [address] Jan, [address] [address] Jan, [address] [address] Jan, [address] [address] Jan, [address] [address] Dec, [facility] [address] [place] [address] Dec, [address] [address] Dec, Type 2 diabetes mellitus with hyperglyce primitivo E11.65 ; Immunization counseling Z71.89 ; Onychomycosis B35.1 ; Tinea pedis of both feet B35.3 and High foot arch Q66.7 [facility] [address] [place] [address] Dec, Type 2 diabetes mellitus with hyperglyce primitivo E11.65 [facility] [address] [place] [address] Nov, Type 2 diabetes mellitus with hyperglyce primitivo E11.65 and Hyperlipemia E78.5 [facility] [address] [facility] [id number] [address] [place] [id number] Nov, [facility] [address] [place] [facility] [place] [address] Sep, Sinusitis acute J01.90 [facility] WALK IN [facility] [address] [facility] [id number] [address] [place] [address] Apr, Acute non-recurrent maxillar y sinusitis J01.00 and Acute nasopharyngitis J00 [facility] [address] [facility] [id number] [address] [place] [address] Mar, Type 2 diabetes mellitus wit hout complications E11.9 ; Moderate episode of recurrent major depressive disorder F33.1 and Hyperlipemia E78.5 [place] [address] [facility] [id number] [address] [place] [phone] Mar, [facility] [address] [facility] [id number] [address] [place] [address] Feb, [facility] [address] [facility] [id number] [address] [place] [address] Jan, [facility] WALK IN [facility] [address] [facility] [id number] [address] [place] [address] Jan, Acute non-recurrent pansinus itis J01.40 [facility] [address] [facility] [id number] [address] [place] [address] Dec, Type 2 diabetes mellitus wit h hyperglycemia E11.65 [facility] [address] [facility] [id number] [address] [place] [address] Jul, Type 2 diabetes mellitus wit h hyperglycemia E11.65 [facility] [address] [facility] [id number] [address] [place] [phone] Jun, Hyperlipemia E78.5 [facility] [address] [facility] [id number] [address] [place] [phone] October, Strep throat J02.0 and Sore throat J02.9 [facility] [address] [facility] [id number] [address] [place] [phone] Aug, [facility] [address] [facility] [id number] [address] [place] [address] Jul, Seasonal allergic rhinitis, unspecified allergic rhinitis trigger J30.2 [facility] [address] [facility] [id number] [address] [place] [phone] Jun, Type 2 diabetes mellitus wit hout complications E11.9 [facility] [address] [facility] [id number] [address] [place] [address] May, Type 2 diabetes mellitus wit h hyperglycemia E11.65 and Hyperlipemia E78.5 [facility] [address] [facility] [id number] [address] [place] [phone] Mar, [facility] [address] [facility] [id number] [address] [place] [phone] Mar, [facility] [address] [facility] [id number] [address] [place] [phone] Feb, Type 2 diabetes mellitus wit hout complications E11.9 [facility] [address] [facility] [id number] [address] [place] [phone] Feb, [facility] [address] [facility] [id number] [address] [place] [address] October, Type 2 diabetes mellitus wit h hyperglycemia E11.65 [facility] [address] [facility] [id number] [address] [place] [phone] Aug, Hyperlipemia E78.5 [facility] [address] [facility] [id number] [address] [place] [address] Jul, Hyperlipemia E78.5 [facility] [address] [facility] [id number] [address] [place] [phone] Jul, Type 2 diabetes mellitus wit h complication E11.8 and Carpal tunnel syndrome G56.00 [facility] [address] [place] [id number] [address] [place] [phone] Jul, [facility] [address] [place] [id number] [place] [address] Jul, [facility] [address] [place] [id number] [address] [place] [phone] Feb, [facility] [address] [place] [id number] [place] [address] Nov, [facility] [address] [address] October, Diabetes mellitus without me ntion of complication, type II or unspecified type, not stated as uncontrolled 250.00 and Proteinuria 791.0 [facility] [address] [place] [id number] [address] [place] [phone] Sep, [facility] [address] [place] [id number] [address] [place] [phone] Sep, [facility] [address] [place] [id number] [address] [place] [phone] Sep, [facility] [address] [place] [id number] [address] [place] [phone] Sep, [facility] [address] [place] [id number] [address] [place] [phone] Aug, [facility] [address] [place] [id number] [address] [place] [phone] Aug, [facility] [address] [place] [id number] [address] [place] [phone] Aug, [facility] [address] [id number] [address] [place] [address], [place] [address] Aug, [facility] [address] [id number] [address] [place] [address], [place] [address] Apr, [facility] [address] [id number] [address] [place] [address], [place] [address] Apr, [facility] [address] [id number] [address] [place] [address], [place] [address] Mar, [facility] [address] [id number] [address] [place] [address], [place] [address] Mar, [facility] [address] [id number] [address] [place] [address], [place] [address] Mar, [facility] [address] [id number] [address] [place] [address], [place] [address] Mar, [facility] [address] [id number] [address] [place] [address], [place] [address] Mar, [facility] [address] [id number] [address] [place] [address], [place] [address] Feb, [facility] [address] [id number] [address] [place] [address], [place] [address] Feb, [facility] [address] [id number] [address] [place] [address], [place] [address] Feb, [facility] [address] [id number] [address] [place] [address], [place] [address] Feb, [facility] [address] [id number] [address] [place] [address], [place] [address] Dec, [facility] [address] [id number] [address] [place] [address], [place] [address] Dec, [facility] [address] [id number] [address] [place] [address], [place] [address] Dec, [facility] [address] [id number] [address] [place] [address], [place] [address] Nov, [facility] [address] [id number] [address] [place] [address], [place] [address] Nov, [facility] [address] [id number] [address] [place] [address], [place] [address] October, [facility] [address] [id number] [address] [place] [address], [place] [address] October, [facility] [address] [id number] [address] [place] [address], [place] [address] Sep, [facility] [address] [id number] [address] [place] [address], [place] [address] Sep, [facility] [address] [id number] [address] [place] [address], [place] [address] Sep, [facility] [address] [id number] [address] [place] [address], [place] [address] Sep, [facility] [address] [id number] [address] [place] [address], [place] [address] Sep, [facility] [address] [id number] [address] [place] [address], [place] [address] Aug, [facility] [address] [id number] [address] [place] [address], [place] [address] Aug, [facility] [address] [id number] [address] [place] [address], [place] [address] Mar, [facility] [address] [id number] [address] [place] [address], [place] [address] Mar, [facility] [address] [id number] [address] [place] [address], [place] [address] Jan, [facility] [address] [id number] [address] [place] [address], [place] [address] Jan, [facility] [address] [id number] [address] [place] [address], [place] [address] Dec, [facility] [address] [id number] [address] [place] [phone] Dec, [facility] [address] [id number] [address] [place] [address], [place] [address] Nov, [facility] [address] [id number] [address] [place] [phone] Nov, [facility] [address] [id number] [address] [place] [address], [place] [address] Nov, [facility] [address] [id number] [address] [place] [address], [place] [address] Sep, [facility] [address] [id number] [address] [place] [address], [place] [address] Sep, [facility] [address] [id number] [address] [place] [address], [place] [address] Aug, [facility] [address] [id number] [address] [place] [address], [place] [address] Aug, [facility] [address] [id number] [address] [place] [address], [place] [address] Aug, [facility] [address] [id number] [address] [place] [address], [place] [address] Jul, [facility] [address] [id number] [address] [place] [address], [place] [address] Jul, [facility] [address] [id number] [address] [place] [address], [place] [address] May, [facility] [address] [id number] [address] [place] [phone] May, [facility] [address] [id number] [address] [place] [address], [place] [address] Apr, [facility] [address] [id number] [address] [place] [address], [place] [address] Apr, [facility] [address] [id number] [address] [place] [address], [place] [address] Mar, [facility] [address] [id number] [address] [place] [address], [place] [address] Mar, [facility] [address] [id number] [address] [place] [address], [place] [address] Mar, [facility] [address] [id number] [address] [place] [address], [place] [address] Mar, [facility] [address] [id number] [address] [place] [address], [place] [address] Mar, [facility] [address] [id number] [address] [place] [address], [place] [address] Mar, [facility] [address] [id number] [address] [place] [address], [place] [address] Mar, [facility] [address] [id number] [address] [place] [address], [place] [address] Mar, [facility] [address] [id number] [address] [place] [address], [place] [address] Mar, [facility] [address] [id number] [address] [place] [address], [place] [address] Mar, [facility] [address] [id number] [address] [place] [address], [place] [address] Mar, [facility] [address] [id number] [address] [place] [address], [place] [address] Mar, [facility] [address] [id number] [address] [place] [address], [place] [address] 15 Mar, 2012 [facility] [address] [id number] [address] [place] [address], [place] [address] 13 Feb, 2012 [facility] [address] [id number] [address] [place] [address], [place] [address] 06 Feb, 2012 [facility] [address] [id number] [address] [place] [id number] 04 Feb, 2012 [facility] [address] [id number] [address] [place] [id number] Jan, [facility] [address] [id number] [address] [place] [phone] Jan, [facility] [address] [id number] [address] [place] [id number] October, [facility] [address] [id number] [address] [place] [id number] Sep, [facility] [address] [id number] [address] [place] [phone] Sep, [facility] [address] [id number] [address] [place] [phone] Aug, [facility] [address] [id number] [address] [place] [id number] Jul, [facility] [address] [id number] [address] [place] [phone] Jul, [facility] [address] [id number] [address] [place] [phone] Jul, [facility] [address] [id number] [address] [place] [phone] Jul, [facility] [address] [id number] [address] [place] [phone] Jun, [facility] [address] [id number] [address] [place] [id number] May, IMMUNIZATIONS No Known Immunizations SOCIAL HISTORY [...]
--- OUTSIDE RECORDS SUMMARY | 2019-11-09 19:34 | XMS REPORT ---
Author Author Kodi JOLLY Organization [facility] Address [address] [place] [address] Care Team Providers Care Entertainment Manager Name Role Phone CHIVO JOLLY Unavailable PROBLEMS Type Condition ICD9-CM Code QRC20-HA Code Onset Dates Condition S tatus SNOMED Code Problem Moderate episode of recurrent major depressive disorder F33.1 Active 579957077 Problem High foot arch Q66.7 Active 42630 004 Problem Hyperlipemia E78.5 Active 0336660 4 Problem Type 2 diabetes mellitus with hyperglycemia E11.65 Active 510501348237051 Problem Type 2 diabetes mellitus without complications E11 .9 Active 900556098 Problem Seasonal allergic rhinitis, unspecified allergic rhinitis trigger J30.2 Active [id number] ALLERGIES No Information ENCOUNTERS Encounter Location Date Diagnosis [address] [address] Apr, [address] [address] Jan, [address] [address] Jan, [address] [address] Jan, [address] [address] Jan, [address] [address] Dec, [facility] [address] [place] [address] Dec, [address] [address] Dec, Type 2 diabetes mellitus with hyperglyce primitivo E11.65 ; Immunization counseling Z71.89 ; Onychomycosis B35.1 ; Tinea pedis of both feet B35.3 and High foot arch Q66.7 [facility] [address] [place] [address] Dec, Type 2 diabetes mellitus with hyperglyce primitivo E11.65 [facility] [address] [place] [address] Nov, Type 2 diabetes mellitus with hyperglyce primitivo E11.65 and Hyperlipemia E78.5 [facility] [address] [facility] [id number] [address] [place] [address] Nov, [facility] [address] [place] [address] Sep, Sinusitis acute J01.90 [facility] [address] [facility] [id number] [address] [place] [address] Apr, Acute non-recurrent maxillar y sinusitis J01.00 and Acute nasopharyngitis J00 [facility] [address] [facility] [id number] [address] [place] [address] Mar, Type 2 diabetes mellitus wit hout complications E11.9 ; Moderate episode of recurrent major depressive disorder F33.1 and Hyperlipemia E78.5 [place] [address] [facility] [id number] [address] [place] [address] Mar, [facility] [address] [facility] [id number] [address] [place] [address] Feb, [facility] [address] [facility] [id number] [address] [place] [address] Jan, [facility] [address] [facility] [id number] [address] [place] [address] Jan, Acute non-recurrent pansinus itis J01.40 [facility] [address] [facility] [id number] [address] [place] [address] Dec, Type 2 diabetes mellitus wit h hyperglycemia E11.65 [facility] [address] [facility] [id number] [address] [place] [address] Jul, Type 2 diabetes mellitus wit h hyperglycemia E11.65 [facility] [address] [facility] [id number] [address] [place] [address] Jun, Hyperlipemia E78.5 [facility] [address] [facility] [id number] [address] [place] [address] October, Strep throat J02.0 and Sore throat J02.9 [facility] [address] [facility] [id number] [address] [place] [address] Aug, [facility] [address] [facility] [id number] [address] [place] [address] Jul, Seasonal allergic rhinitis, unspecified allergic rhinitis trigger J30.2 [facility] [address] [facility] [id number] [address] [place] [address] Jun, Type 2 diabetes mellitus wit hout complications E11.9 [facility] [address] [facility] [id number] [address] [place] [address] May, Type 2 diabetes mellitus wit h hyperglycemia E11.65 and Hyperlipemia E78.5 [facility] [address] [facility] [id number] [address] [place] [address] Mar, [facility] [address] [facility] [id number] [address] [place] [address] Mar, [facility] [address] [facility] [id number] [address] [place] [address] Feb, Type 2 diabetes mellitus wit hout complications E11.9 [facility] [address] [facility] [id number] [address] [place] [address] Feb, [facility] [address] [facility] [id number] [address] [place] [address] October, Type 2 diabetes mellitus wit h hyperglycemia E11.65 [facility] [address] [facility] [id number] [address] [place] [address] Aug, Hyperlipemia E78.5 [facility] [address] [facility] [id number] [address] [place] [address] Jul, Hyperlipemia E78.5 [facility] [address] [facility] [id number] [address] [place] [address] Jul, Type 2 diabetes mellitus wit h complication E11.8 and Carpal tunnel syndrome G56.00 [facility] [address] [place] [id number] [address] [place] [address] Jul, [facility] [address] [place] [id number] [place] [address] Jul, [facility] [address] [place] [id number] [address] [place] [address] Feb, [facility] [address] [place] [id number] [place] [address] Nov, [facility] [address] [address] October, Diabetes mellitus without me ntion of complication, type II or unspecified type, not stated as uncontrolled 250.00 and Proteinuria 791.0 [facility] [address] [place] [id number] [address] [place] [address] Sep, [facility] [address] [place] [id number] [address] [place] [address] Sep, [facility] [address] [place] [id number] [address] [place] [address] Sep, [facility] [address] [place] [id number] [address] [place] [address] Sep, [facility] [address] [place] [id number] [address] [place] [address] Aug, [facility] [address] [place] [id number] [address] [place] [address] Aug, [facility] [address] [place] [id number] [address] [place] [address] Aug, [facility] [address] [id number] [address] [place] [address], [place] [address] Aug, [facility] [address] [id number] [address] [place] [address], [place] [address] Apr, [facility] [address] [id number] [address] [place] [address], [place] [address] Apr, [facility] [address] [id number] [address] [place] [address], [place] [address] Mar, [facility] [address] [id number] [address] [place] [address], [place] [address] Mar, [facility] [address] [id number] [address] [place] [address], [place] [address] Mar, [facility] [address] [id number] [address] [place] [address], [place] [address] Mar, [facility] [address] [id number] [address] [place] [address], [place] [address] Mar, [facility] [address] [id number] [address] [place] [address], [place] [address] Feb, [facility] [address] [id number] [address] [place] [address], [place] [address] Feb, [facility] [address] [id number] [address] [place] [address], [place] [address] Feb, [facility] [address] [id number] [address] [place] [address], [place] [address] Feb, [facility] [address] [id number] [address] [place] [address], [place] [address] Dec, [facility] [address] [id number] [address] [place] [address], [place] [address] Dec, [facility] [address] [id number] [address] [place] [address], [place] [address] Dec, [facility] [address] [id number] [address] [place] [address], [place] [address] Nov, [facility] [address] [id number] [address] [place] [address], [place] [address] Nov, [facility] [address] [id number] [address] [place] [address], [place] [address] October, [facility] [address] [id number] [address] [place] [address], [place] [address] October, [facility] [address] [id number] [address] [place] [address], [place] [address] Sep, [facility] [address] [id number] [address] [place] [address], [place] [address] Sep, [facility] [address] [id number] [address] [place] [address], [place] [address] Sep, [facility] [address] [id number] [address] [place] [address], [place] [address] Sep, [facility] [address] [id number] [address] [place] [address], [place] [address] Sep, [facility] [address] [id number] [address] [place] [address], [place] [address] Aug, [facility] [address] [id number] [address] [place] [address], [place] [address] Aug, [facility] [address] [id number] [address] [place] [address], [place] [address] Mar, [facility] [address] [id number] [address] [place] [address], [place] [address] Mar, [facility] [address] [id number] [address] [place] [address], [place] [address] Jan, [facility] [address] [id number] [address] [place] [address], [place] [address] Jan, [facility] [address] [id number] [address] [place] [address], [place] [address] Dec, [facility] [address] [id number] [address] [place] [address] Dec, [facility] [address] [id number] [address] [place] [address], [place] [address] Nov, [facility] [address] [id number] [address] [place] [address] Nov, [facility] [address] [id number] [address] [place] [address], [place] [address] Nov, [facility] [address] [id number] [address] [place] [address], [place] [address] Sep, [facility] [address] [id number] [address] [place] [address], [place] [address] Sep, [facility] [address] [id number] [address] [place] [address], [place] [address] Aug, [facility] [address] [id number] [address] [place] [address], [place] [address] Aug, [facility] [address] [id number] [address] [place] [address], [place] [address] Aug, [facility] [address] [id number] [address] [place] [address], [place] [address] Jul, [facility] [address] [id number] [address] [place] [address], [place] [address] Jul, [facility] [address] [id number] [address] [place] [address], [place] [address] May, [facility] [address] [id number] [address] [place] [address] May, [facility] [address] [id number] [address] [place] [address], [place] [address] Apr, [facility] [address] [id number] [address] [place] [address], [place] [address] Apr, [facility] [address] [id number] [address] [place] [address], [place] [address] Mar, [facility] [address] [id number] [address] [place] [address], [place] [address] Mar, [facility] [address] [id number] [address] [place] [address], [place] [address] Mar, [facility] [address] [id number] [address] [place] [address], [place] [address] Mar, [facility] [address] [id number] [address] [place] [address], [place] [address] Mar, [facility] [address] [id number] [address] [place] [address], [place] [address] Mar, [facility] [address] [id number] [address] [place] [address], [place] [address] Mar, [facility] [address] [id number] [address] [place] [address], [place] [address] Mar, [facility] [address] [id number] [address] [place] [address], [place] [address] Mar, [facility] [address] [id number] [address] [place] [address], [place] [address] Mar, [facility] [address] [id number] [address] [place] [address], [place] [address] Mar, [facility] [address] [id number] [address] [place] [address], [place] [address] Mar, [facility] [address] [id number] [address] [place] [address], [place] [address] 15 Mar, 2012 [facility] [address] [id number] [address] [place] [address], [place] [address] 13 Feb, 2012 [facility] [address] [id number] [address] [place] [address], [place] [address] 06 Feb, 2012 [facility] [address] [id number] [address] [place] [address] 04 Feb, 2012 [facility] [address] [id number] [address] [place] [address] Jan, [facility] [address] [id number] [address] [place] [address] Jan, [facility] [address] [id number] [address] [place] [address] October, [facility] [address] [id number] [address] [place] [address] Sep, [facility] [address] [id number] [address] [place] [address] Sep, [facility] [address] [id number] [address] [place] [address] Aug, [facility] [address] [id number] [address] [place] [address] Jul, [facility] [address] [id number] [address] [place] [address] Jul, [facility] [address] [id number] [address] [place] [address] Jul, [facility] [address] [id number] [address] [place] [address] Jul, [facility] [address] [id number] [address] [place] [address] Jun, [facility] [address] [id number] [address] [place] [address] May, IMMUNIZATIONS No Known Immunizations SOCIAL HISTORY [...]
--- OUTSIDE RECORDS SUMMARY | 2019-11-09 19:34 | XMS REPORT ---
Author Author Kodi JOLLY Organization [facility] Address [address] [place] [address] Care Team Providers Care Audio Visual Production Specialist Name Role Phone CHIVO JOLLY Unavailable PROBLEMS Type Condition ICD9-CM Code KTI61-CK Code Onset Dates Condition S tatus SNOMED Code Problem Moderate episode of recurrent major depressive disorder F33.1 Active 264624613 Problem High foot arch Q66.7 Active 82565 004 Problem Hyperlipemia E78.5 Active 7407966 4 Problem Type 2 diabetes mellitus with hyperglycemia E11.65 Active [id number] Problem Type 2 diabetes mellitus without complications E11 .9 Active 367835523 Problem Seasonal allergic rhinitis, unspecified allergic rhinitis trigger J30.2 Active [id number] ALLERGIES No Information ENCOUNTERS Encounter Location Date Diagnosis [facility] [address] [facility] [id number] [place] [address] Jun, [place] [id number] [facility] [id number] [place] [address] Apr, [facility] [address] [place] [address] Apr, Acute rhinosinusitis J01.90 [facility] [address] [place] [address] Feb, Sore throat J02.9 and Acute non-recurrent maxillary sinusitis J01.[address] [place] [address] Jan, [address] [place] [address] Jan, [address] [place] [address] Jan, [facility] [address] [place] [address] Jan, [facility] [address] [place] [address] Dec, [facility] [address] [id number] [place] [address] Dec, [facility] [address] [place] [address] Dec, Type 2 diabetes mellitus wit h hyperglycemia E11.65 ; Immunization counseling Z71.89 ; Onychomycosis B35.1 ; Tinea pedis of both feet B35.3 and High foot arch Q66.7 [facility] [address] [place] [address] Dec, Type 2 diabetes mellitus wit h hyperglycemia E11.65 [address] [place] [address] Nov, Type 2 diabetes mellitus wit h hyperglycemia E11.65 and Hyperlipemia E78.5 [facility] [address] [id number] [place] [address] Nov, [facility] [address] [place] [address] Sep, Sinusitis acute J01.90 [facility] [address] [facility] [id number] [address] [place] [address] Apr, Acute non-recurrent maxillar y sinusitis J01.00 and Acute nasopharyngitis J00 [facility] [address] [id number] [place] [address] Mar, Type 2 diabetes mellitus without complic ations E11.9 ; Moderate episode of recurrent major depressive disorder F33.1 and Hyperlipemia E78.5 [facility] [address] [id number] [place] [address] Mar, [facility] [address] [id number] [place] [address] Feb, [place] [address] [place] [id number] [place] [address] Jan, [facility] [address] [place] [address] Jan, Acute non-recurrent pansinus itis J01.40 [place] [address] [address] Dec, Type 2 diabetes mellitus with hyperglyce primitivo E11.65 [place] [address] [address] Jul, Type 2 diabetes mellitus with hyperglyce primitivo E11.65 [place] [address] [address] Jun, Hyperlipemia E78.5 [facility] [place] [address] [place] [id number] [place] [address] October, Strep throat J02.0 and Sore throat J02.9 [place] [address] [address] Aug, [facility] [place] [address] [address] Jul, Seasonal allergic rhinitis, unspecified allergic rhinitis trigger J30.2 [place] [address] [address] Jun, Type 2 diabetes mellitus without complic ations E11.9 [place] [address] [address] May, Type 2 diabetes mellitus with hyperglyce primitivo E11.65 and Hyperlipemia E78.5 [place] [address] [address] Mar, [place] [address] [address] Mar, [place] [address] [address] Feb, Type 2 diabetes mellitus without complic ations E11.9 [facility] [address] [address] Feb, [facility] [address] [address] October, Type 2 diabetes mellitus with hyperglyce primitivo E11.65 [facility] [address] [address] Aug, Hyperlipemia E78.5 [facility] [address] [address] Jul, Hyperlipemia E78.5 [facility] [address] [address] 08 Jul, 2015 Type 2 diabetes mellitus with complicati on E11.8 and Carpal tunnel syndrome G56.00 [facility] [address] [address] Jul, [facility] [address] [address] Jul, [facility] [address] [address] Feb, [facility] [address] [address] Nov, [facility] [address] [address] October, Diabetes mellitus without mention of com plication, type II or unspecified type, not stated as uncontrolled 250.00 and Proteinuria 791.0 [facility] [address] [address] Sep, [facility] [address] [address] Sep, [facility] [address] [address] Sep, [facility] [address] [place] [address] Sep, 2014 [facility] [address] [id number] [place] [address] Aug, [facility] [address] [id number] [place] [address] Aug, [facility] [address] [id number] [place] [address] Aug, [facility] [address] [id number] [place] [address] Aug, [facility] [address] [id number] [place] [address] Apr, [facility] [address] [id number] [place] [address] Apr, [facility] [address] [id number] [place] [address] Mar, [facility] [address] [id number] [place] [address] Mar, [facility] [address] [id number] [place] [address] Mar, [facility] [address] [id number] [place] [address] Mar, [facility] [address] [id number] [place] [address] Mar, [facility] [address] [id number] [place] [address] Feb, 2013 [facility] [address] [id number] [place] [address] Feb, 2013 [facility] [address] [id number] [place] [address] Feb, 2013 [facility] [address] [id number] [place] [address] Feb, 2013 [facility] [address] [id number] [place] [address] Dec, [facility] [address] [id number] [place] [address] Dec, [facility] [address] [id number] [place] [address] Dec, [facility] [address] [id number] [place] [address] Nov, [facility] [address] [id number] [place] [address] Nov, [facility] [address] [id number] [place] [address] October, [facility] [address] [id number] [place] [address] October, [facility] [address] [id number] [place] [address] Sep, [facility] [address] [id number] [place] [address] Sep, [facility] [address] [id number] [place] [address] Sep, [facility] [address] [id number] [place] [address] Sep, [facility] [address] [id number] [place] [address] Sep, [facility] [address] [id number] [place] [address] Aug, [facility] [address] [id number] [place] [address] Aug, [facility] [address] [id number] [place] [address] Mar, [facility] [address] [id number] [place] [address] Mar, [facility] [address] [id number] [place] [address] Jan, [facility] [address] [id number] [place] [address] Jan, [facility] [address] [id number] [place] [address] Dec, [facility] [address] [id number] [place] [address] Dec, [facility] [address] [id number] [place] [address] Nov, [facility] [address] [id number] [place] [address] Nov, [facility] [address] [id number] [place] [address] Nov, [facility] [address] [id number] [place] [address] Sep, [facility] [address] [id number] [place] [address] Sep, [facility] [address] [id number] [place] [address] Aug, [facility] [address] [id number] [place] [address] Aug, [facility] [address] [id number] [place] [address] Aug, [facility] [address] [id number] [place] [address] Jul, [facility] [address] [id number] [place] [address] Jul, [facility] [address] [id number] [place] [address] May, [facility] [address] [id number] [place] [address] May, [facility] [address] [id number] [place] [address] Apr, [facility] [address] [id number] [place] [address] Apr, [facility] [address] [id number] [place] [address] Mar, [facility] [address] [id number] [place] [address] Mar, [facility] [address] [id number] [place] [address] Mar, [facility] [address] [id number] [place] [address] Mar, [facility] [address] [id number] [place] [address] Mar, [facility] [address] [id number] [place] [address] Mar, [facility] [address] [id number] [place] [address] Mar, [facility] [address] [id number] [place] [address] Mar, [facility] [address] [id number] [place] [address] Mar, [facility] [address] [id number] [place] [address] Mar, [facility] [address] [id number] [place] [address] Mar, [facility] [address] [id number] [place] [address] Mar, [facility] [address] [id number] [place] [address] 15 Mar, 2012 [facility] [address] [id number] [place] [address] 13 Feb, 2012 [facility] [address] [id number] [place] [address] 06 Sep2011 [facility] [address] [id number] [place] [address] 04 Feb, 2011 [facility] [address] [id number] [place] [address] 16 Jan, 2012 [facility] [address] [id number] [place] [address] Jan, [facility] [address] [id number] [place] [address] October, [facility] [address] [id number] [place] [address] Sep, [facility] [address] [place] [id number] [place] [address] Sep, [facility] [address] [place] [id number] [place] [address] Aug, [facility] [address] [place] [id number] [place] [address] Jul, [facility] [address] [place] [id number] [place] [address] Jul, [facility] [address] [place] [id number] [place] [address] Jul, [facility] [address] [id number] [place] [address] Jul, [facility] [address] [place] [id number] [place] [address] Jun, [facility] [address] [id number] [place] [address] May, IMMUNIZATIONS No Known Immunizations SOCIAL HISTORY [...]
--- OUTSIDE RECORDS SUMMARY | 2019-11-09 19:34 | XMS REPORT ---
Author Author Kodi JOLLY Organization [facility] Address [address] [place] [address] Care Team Providers Care Biologist Name Role Phone CHIVO JOLLY Unavailable PROBLEMS Type Condition ICD9-CM Code [id number] Code Onset Dates Condition S tatus SNOMED Code Problem Moderate episode of recurrent major depressive disorder F33.1 Active 409492302 Problem High foot arch Q66.7 Active 18152 004 Problem Hyperlipemia E78.5 Active 5236818 4 Problem Type 2 diabetes mellitus with hyperglycemia E11.65 Active 965830269714734 Problem Type 2 diabetes mellitus without complications E11 .9 Active 333841567 Problem Seasonal allergic rhinitis, unspecified allergic rhinitis trigger J30.2 Active [id number] ALLERGIES No Information ENCOUNTERS Encounter Location Date Diagnosis [address] [address] Apr, [address] [address] Dec, [facility] [address] [place] [address] Dec, [address] [address] Dec, Type 2 diabetes mellitus with hyperglyce primitivo E11.65 ; Immunization counseling Z71.89 ; Onychomycosis B35.1 ; Tinea pedis of both feet B35.3 and High foot arch Q66.[address] [address] Dec, Type 2 diabetes mellitus with hyperglyce primitivo E11.[address] [address] Nov, Type 2 diabetes mellitus with hyperglyce primitivo E11.65 and Hyperlipemia E78.5 [facility] [address] [place] [id number] [place] [address] Nov, [facility] [address] [facility] [place] [address] Sep, Sinusitis acute J01.90 [facility] [address] [facility] [id number] [address] [place] [address] Apr, Acute non-recurrent maxillar y sinusitis J01.00 and Acute nasopharyngitis J00 [facility] [address] [facility] [id number] [address] [place] [address] Mar, Type 2 diabetes mellitus wit hout complications E11.9 ; Moderate episode of recurrent major depressive disorder F33.1 and Hyperlipemia E78.5 [facility] [address] [facility] [id number] [address] [place] [address] Mar, [facility] [address] [facility] [id number] [address] [place] [address] Feb, [facility] [address] [facility] [id number] [address] [place] [address] Jan, [facility] [address] [facility] [id number] [address] [place] [address] Jan, Acute non-recurrent pansinus itis J01.40 [facility] [address] [facility] [id number] [address] [place] [address] Dec, Type 2 diabetes mellitus wit h hyperglycemia E11.65 [facility] [address] [facility] [id number] [address] [place] [address] Jul, Type 2 diabetes mellitus wit h hyperglycemia E11.65 [facility] [address] [facility] [id number] [address] [place] [address] Jun, Hyperlipemia E78.5 [facility] [address] [facility] [id number] [address] [place] [address] October, Strep throat J02.0 and Sore throat J02.9 [facility] [address] [facility] [id number] [address] [place] [address] 16 Aug, 2016 [facility] [address] [facility] [id number] [address] [place] [address] 14 Jul, 2016 Seasonal allergic rhinitis, unspecified allergic rhinitis trigger J30.2 [facility] [address] [facility] [id number] [address] [place] [address] Jun, Type 2 diabetes mellitus wit hout complications E11.9 [facility] [address] [facility] [id number] [address] [place] [address] May, Type 2 diabetes mellitus wit h hyperglycemia E11.65 and Hyperlipemia E78.5 [facility] [address] [facility] [id number] [address] [place] [address] Mar, [facility] [address] [facility] [id number] [address] [place] [address] Mar, [facility] [address] [facility] [id number] [address] [place] [address] Feb, Type 2 diabetes mellitus wit hout complications E11.9 [facility] [address] [facility] [id number] [address] [place] [address] Feb, [facility] [address] [facility] [id number] [address] [place] [address] October, Type 2 diabetes mellitus wit h hyperglycemia E11.65 [facility] [address] [facility] [id number] [address] [place] [address] Aug, Hyperlipemia E78.5 [facility] [address] [facility] [id number] [address] [place] [address] 10 Jul, 2015 Hyperlipemia E78.5 [facility] [address] [facility] [id number] [address] [place] [address] 08 Jul, 2015 Type 2 diabetes mellitus wit h complication E11.8 and Carpal tunnel syndrome G56.00 [facility] [address] [place] [id number] [address] [place] [address] Jul, [facility] [address] [id number] [address] [place] [address] Jul, [facility] [address] [id number] [address] [place] [address] Feb, [facility] [address] [id number] [address] [place] [address] Nov, [facility] [address] [id number] [address] [place] [address] October, Diabetes mellitus without me ntion of complication, type II or unspecified type, not stated as uncontrolled 250.00 and Proteinuria 791.0 [facility] [address] [id number] [address] [place] [address] Sep, [facility] [address] [id number] [address] [place] [address] Sep, [facility] [address] [id number] [address] [place] [address] Sep, [facility] [address] [id number] [address] [place] [address] Sep, [facility] [address] [id number] [address] [place] [address] Aug, [facility] [address] [id number] [address] [place] [address] Aug, [facility] [address] [id number] [address] [place] [address] Aug, [facility] [address] [id number] [address] [place] [address] Aug, [facility] [address] [id number] [address] [place] [address] Apr, [facility] [address] [id number] [address] [place] [address] Apr, [facility] [address] [id number] [address] [place] [address] Mar, [facility] [address] [id number] [address] [place] [address], [place] [address] Mar, [facility] [address] [id number] [address] [place] [address], [place] [address] Mar, [facility] [address] [id number] [address] [place] [address], [place] [address] Mar, [facility] [address] [id number] [address] [place] [address], [place] [address] Mar, [facility] [address] [id number] [address] [place] [address], [place] [address] Feb, [facility] [address] [id number] [address] [place] [address], [place] [address] Feb, [facility] [address] [id number] [address] [place] [address], [place] [address] Feb, [facility] [address] [id number] [address] [place] [address], [place] [address] Feb, [facility] [address] [id number] [address] [place] [address], [place] [address] Dec, [facility] [address] [id number] [address] [place] [address], [place] [address] Dec, [facility] [address] [id number] [address] [place] [address], [place] [address] Dec, [facility] [address] [id number] [address] [place] [address], [place] [address] Nov, [facility] [address] [id number] [address] [place] [address], [place] [address] Nov, [facility] [address] [id number] [address] [place] [address], [place] [address] October, [facility] [address] [id number] [address] [place] [address], [place] [address] October, [facility] [address] [id number] [address] [place] [address], [place] [address] 10 Sep, 2013 [facility] [address] [id number] [address] [place] [address], [place] [address] 10 Sep, 2013 [facility] [address] [id number] [address] [place] [address], [place] [address] 08 Sep, 2013 [facility] [address] [id number] [address] [place] [address], [place] [address] Sep, [facility] [address] [id number] [address] [place] [address], [place] [address] Sep, [facility] [address] [id number] [address] [place] [address], [place] [address] Aug, [facility] [address] [id number] [address] [place] [address], [place] [address] Aug, [facility] [address] [id number] [address] [place] [address], [place] [address] Mar, [facility] [address] [id number] [address] [place] [address], [place] [address] Mar, [facility] [address] [id number] [address] [place] [address], [place] [address] Jan, [facility] [address] [id number] [address] [place] [address], [place] [address] Jan, [facility] [address] [id number] [address] [place] [address], [place] [address] Dec, [facility] [address] [id number] [address] [place] [address], [place] [address] Dec, [facility] [address] [id number] [address] [place] [address], [place] [address] Nov, [facility] [address] [id number] [address] [place] [address], [place] [address] Nov, [facility] [address] [id number] [address] [place] [address], [place] [address] Nov, [facility] [address] [id number] [address] [place] [address], [place] [address] Sep, [facility] [address] [id number] [address] [place] [address], [place] [address] Sep, [facility] [address] [id number] [address] [place] [address], [place] [address] Aug, [facility] [address] [id number] [address] [place] [address], [place] [address] Aug, [facility] [address] [id number] [address] [place] [address], [place] [address] Aug, [facility] [address] [id number] [address] [place] [address], [place] [address] Jul, [facility] [address] [id number] [address] [place] [address], [place] [address] Jul, [facility] [address] [id number] [address] [place] [address], [place] [address] May, [facility] [address] [id number] [address] [place] [address], [place] [address] May, [facility] [address] [id number] [address] [place] [address], [place] [address] Apr, [facility] [address] [id number] [address] [place] [address], [place] [address] Apr, [facility] [address] [id number] [address] [place] [address], [place] [address] Mar, [facility] [address] [id number] [address] [place] [address], [place] [address] Mar, [facility] [address] [id number] [address] [place] [address], [place] [address] Mar, [facility] [address] [id number] [address] [place] [address], [place] [address] Mar, [facility] [address] [id number] [address] [place] [address], [place] [address] Mar, [facility] [address] [id number] [address] [place] [address], [place] [address] Mar, [facility] [address] [id number] [address] [place] [address], [place] [address] Mar, [facility] [address] [id number] [address] [place] [address], [place] [address] Mar, [facility] [address] [id number] [address] [place] [address], [place] [address] Mar, [facility] [address] [id number] [address] [place] [address], [place] [address] Mar, [facility] [address] [id number] [address] [place] [address], [place] [address] Mar, [facility] [address] [id number] [address] [place] [address], [place] [address] Mar, [facility] [address] [id number] [address] [place] [address], [place] [address] 15 Mar, 2012 [facility] [address] [id number] [address] [place] [address], [place] [address] 13 Feb, 2012 [facility] [address] [id number] [address] [place] [address], [place] [address] 06 Feb, 2012 [facility] [address] [id number] [address] [place] [address], [place] [address] 04 Feb, 2012 [facility] [address] [id number] [address] [place] [address], [place] [address] 16 Jan, 2012 [facility] [address] [id number] [address] [place] [address], [place] [address] Jan, [facility] [address] [id number] [address] [place] [address], [place] [address] October, [facility] [address] [id number] [address] [place] [address], [place] [address] 18 Sep, 2011 [facility] [address] [id number] [address] [place] [address] Sep, [facility] [address] [id number] [address] [place] [address] Aug, [facility] [address] [id number] [address] [place] [address] Jul, [facility] [address] [id number] [address] [place] [address] Jul, [facility] [address] [id number] [address] [place] [address] Jul, [facility] [address] [id number] [address] [place] [address] Jul, [facility] [address] [facility] [id number] [address] [place] [address] Jun, [facility] [address] [id number] [address] [place] [address] May, IMMUNIZATIONS No Known Immunizations SOCIAL HISTORY Never Assessed REASON FOR VISIT PLAN OF CARE VITAL SIGNS Height 67 in 2012-05-17 Weight 208.6 lbs 2012-05-17 Temperature 97.7 degrees Fahrenheit 2012-05-17 Heart Rate 80 bpm 2012-05-17 Respiratory Rate 20 2012-05-17 Blood pressure systolic 112 mmHg 2012-05-17 Blood pressure diastolic 78 mmHg 2012-05-17 MEDICATIONS Unknown Medications RESULTS No Results PROCEDURES Procedure Date Ordered Result Body Site CT ABD&PELV 1+ SECTION/REGNS May 17, 2012 INSTRUCTIONS MEDICATIONS ADMINISTERED No Known Medications MEDICAL (GENERAL) HISTORY Type Description Date Medical History Type II DM Medical History Eye exam 10/2014 No retinopathy Medical History Hypercholesterolemia Surgical History heart cath 11/2018
--- OUTSIDE RECORDS SUMMARY | 2019-11-09 19:35 | XMS REPORT ---
Author Author Kodi JOLLY Organization [facility] Address [address] [place] [address] Care Team Providers Care Pie Filler Name Role Phone CHIVO JOLLY Unavailable PROBLEMS Type Condition ICD9-CM Code [id number] Code Onset Dates Condition S tatus SNOMED Code Problem Seasonal allergic rhinitis, unspecified allergic rhinitis trigger J30.2 Active 445884477 Problem Moderate episode of recurrent major depressive disorder F33.1 Active 085101272 Problem Hyperlipemia E78.5 Active 9649968 4 Problem Type 2 diabetes mellitus with hyperglycemia E11.65 Active 748868062610497 Problem Type 2 diabetes mellitus without complications E11 .9 Active [id number] ALLERGIES No Information ENCOUNTERS Encounter Location Date Diagnosis [address] [address] Apr, [address] [address] Dec, Type 2 diabetes mellitus with hyperglyce primitivo E11.[address] [address] Nov, Type 2 diabetes mellitus with hyperglyce primitivo E11.65 and Hyperlipemia E78.5 [facility] [address] [facility] [id number] [address] [place] [address] Nov, [facility] [address] [place] [address] Sep, Sinusitis acute J01.90 [facility] [address] [facility] [id number] [address] [place] [address] Apr, Acute non-recurrent maxillar y sinusitis J01.00 and Acute nasopharyngitis J00 [facility] [address] [facility] [id number] [address] [place] [address] Mar, Type 2 diabetes mellitus wit hout complications E11.9 ; Moderate episode of recurrent major depressive disorder F33.1 and Hyperlipemia E78.5 [facility] [address] [facility] [id number] [address] [place] [address] Mar, [facility] [address] [place] [id number] [address] [place] [address] Feb, [facility] [address] [address] Jan, [facility] [address] [place] [id number] [address] [place] [address] Jan, Acute non-recurrent pansinus itis J01.40 [place] [address] [place] [id number] [address] [place] [address] Dec, Type 2 diabetes mellitus wit h hyperglycemia E11.65 [place] [address] [place] [id number] [address] [place] [address] Jul, Type 2 diabetes mellitus wit h hyperglycemia E11.65 [place] [address] [facility] [id number] [address] [place] [address] Jun, Hyperlipemia E78.5 [facility] [address] [place] [id number] [address] [place] [address] October, Strep throat J02.0 and Sore throat J02.9 [place] [id number] [place] [address] Aug, [facility] [id number] [place] [address] 14 Jul, 2016 Seasonal allergic rhinitis, unspecified allergic rhinitis trigger J30.2 [place] [address] [place] [id number] [address] [place] [address] Jun, Type 2 diabetes mellitus wit hout complications E11.9 [place] [address] [place] [id number] [address] [place] [address] May, Type 2 diabetes mellitus wit h hyperglycemia E11.65 and Hyperlipemia E78.5 [facility] [address] [facility] [id number] [address] [place] [address] Mar, [facility] [address] [facility] [id number] [address] [place] [address] Mar, [facility] [address] [facility] [id number] [address] [place] [address] Feb, Type 2 diabetes mellitus wit hout complications E11.9 [facility] [address] [id number] [address] [place] [address] Feb, [facility] [address] [facility] [id number] [address] [place] [address] October, Type 2 diabetes mellitus wit h hyperglycemia E11.65 [facility] [address] [facility] [id number] [address] [place] [address] Aug, Hyperlipemia E78.5 [facility] [address] [facility] [id number] [address] [place] [address] Jul, Hyperlipemia E78.5 [facility] [address] [facility] [id number] [address] [place] [address] Jul, Type 2 diabetes mellitus wit h complication E11.8 and Carpal tunnel syndrome G56.00 [facility] [address] [facility] [id number] [address] [place] [address] Jul, [facility] [address] [facility] [id number] [address] [place] [address] Jul, [facility] [address] [facility] [id number] [address] [place] [address] Feb, [facility] [address] [facility] [id number] [address] [place] [address] Nov, [facility] [address] [facility] [id number] [address] [place] [address] October, Diabetes mellitus without me ntion of complication, type II or unspecified type, not stated as uncontrolled 250.00 and Proteinuria 791.0 [facility] [address] [id number] [address] [place] [address] 30 Sep, 2014 [facility] [address] [id number] [address] [place] [id number] 28 Sep, 2014 [facility] [address] [id number] [address] [place] [phone] Sep, [facility] [address] [id number] [address] [place] [address] Sep, [facility] [address] [id number] [address] [place] [address] Aug, [facility] [address] [id number] [address] [place] [phone] Aug, [facility] [address] [id number] [address] [place] [phone] Aug, [facility] [address] [id number] [address] [place] [phone] Aug, [facility] [address] [id number] [address] [place] [phone] Apr, [facility] [address] [id number] [address] [place] [phone] Apr, [facility] [address] [id number] [address] [place] [id number] Mar, [facility] [address] [id number] [address] [place] [phone] Mar, [facility] [address] [id number] [address] [place] [phone] Mar, [facility] [address] [id number] [address] [place] [phone] Mar, [facility] [address] [id number] [address] [place] [phone] Mar, [facility] [address] [id number] [facility] [place] [address] Feb, [facility] [address] [id number] [address] [place] [address], [place] [address] Feb, [facility] [address] [id number] [address] [place] [address], [place] [address] Feb, [facility] [address] [id number] [address] [place] [address], [place] [address] Feb, [facility] [address] [id number] [address] [place] [address], [place] [address] Dec, [facility] [address] [id number] [address] [place] [address], [place] [address] Dec, [facility] [address] [id number] [address] [place] [address], [place] [address] Dec, [facility] [address] [id number] [address] [place] [address], [place] [address] Nov, [facility] [address] [id number] [address] [place] [address], [place] [address] Nov, [facility] [address] [id number] [address] [place] [address], [place] [address] October, [facility] [address] [id number] [address] [place] [address], [place] [address] October, [facility] [address] [id number] [address] [place] [address], [place] [address] Sep, [facility] [address] [id number] [address] [place] [address], [place] [address] Sep, [facility] [address] [id number] [address] [place] [address], [place] [address] 08 Sep, 2013 [facility] [address] [id number] [address] [place] [address], [place] [address] Sep, [facility] [address] [id number] [address] [place] [address], [place] [address] 07 Sep, 2013 [facility] [address] [id number] [address] [place] [address], [place] [address] Aug, [facility] [address] [id number] [address] [place] [address], [place] [address] Aug, [facility] [address] [id number] [address] [place] [address], [place] [address] Mar, [facility] [address] [id number] [address] [place] [address], [place] [address] Mar, [facility] [address] [id number] [address] [place] [address], [place] [address] Jan, [facility] [address] [id number] [address] [place] [address], [place] [address] Jan, [facility] [address] [id number] [address] [place] [address], [place] [address] Dec, [facility] [address] [id number] [address] [place] [address], [place] [address] Dec, [facility] [address] [id number] [address] [place] [address], [place] [address] Nov, [facility] [address] [id number] [address] [place] [address], [place] [address] Nov, [facility] [address] [id number] [address] [place] [address], [place] [address] Nov, [facility] [address] [id number] [address] [place] [address], [place] [address] Sep, [facility] [address] [id number] [address] [place] [address], [place] [address] Sep, [facility] [address] [id number] [address] [place] [address], [place] [address] Aug, [facility] [address] [id number] [address] [place] [address], [place] [address] Aug, [facility] [address] [id number] [address] [place] [address], [place] [address] Aug, [facility] [address] [id number] [address] [place] [address], [place] [address] Jul, [facility] [address] [id number] [address] [place] [address], [place] [address] Jul, [facility] [address] [id number] [address] [place] [address], [place] [address] May, [facility] [address] [id number] [address] [place] [address], [place] [address] May, [facility] [address] [id number] [address] [place] [address], [place] [address] Apr, [facility] [address] [id number] [address] [place] [address], [place] [address] Apr, [facility] [address] [id number] [address] [place] [address], [place] [address] Mar, [facility] [address] [id number] [address] [place] [address], [place] [address] Mar, [facility] [address] [id number] [address] [place] [address], [place] [address] Mar, [facility] [address] [id number] [address] [place] [address], [place] [address] Mar, [facility] [address] [id number] [address] [place] [address], [place] [address] Mar, [facility] [address] [id number] [address] [place] [address], [place] [address] Mar, [facility] [address] [id number] [address] [place] [address], [place] [address] Mar, [facility] [address] [id number] [address] [place] [address], [place] [address] Mar, [facility] [address] [id number] [address] [place] [address], [place] [address] Mar, [facility] [address] [id number] [address] [place] [address], [place] [address] Mar, [facility] [address] [id number] [address] [place] [address], [place] [address] Mar, [facility] [address] [id number] [address] [place] [address], [place] [address] 15 Mar, 2012 [facility] [address] [id number] [address] [place] [address], [place] [address] 15 Mar, 2012 [facility] [address] [id number] [address] [place] [address], [place] [address] 13 Feb, 2012 [facility] [address] [id number] [address] [place] [address], [place] [address] 06 Feb, 2012 [facility] [address] [id number] [address] [place] [address], [place] [address] 04 Feb, 2012 [facility] [address] [id number] [address] [place] [address], [place] [address] 16 Jan, 2012 [facility] [address] [id number] [address] [place] [address], [place] [address] Jan, [facility] [address] [id number] [address] [place] [address], [place] [address] October, [facility] [address] [id number] [address] [place] [address], [place] [address] 18 Sep, 2011 [facility] [address] [id number] [address] [place] [address] Sep, [facility] [address] [id number] [address] [place] [address], [place] [address] Aug, [facility] [address] [id number] [address] [place] [address], [place] [address] Jul, [facility] [address] [id number] [address] [place] [address], [place] [address] Jul, [facility] [address] [facility] [id number] [address] [place] [address] Jul, [facility] [address] [facility] [id number] [address] [place] [id number] Jul, [facility] [address] [facility] [id number] [address] [place] [address] Jun, [facility] [address] [facility] [id number] [address] [place] [address] May, IMMUNIZATIONS No Known Immunizations SOCIAL HISTORY Never Assessed REASON FOR VISIT PLAN OF CARE VITAL SIGNS MEDICATIONS Unknown Medications RESULTS No Results PROCEDURES No Known procedures INSTRUCTIONS MEDICATIONS ADMINISTERED No Known Medications MEDICAL (GENERAL) HISTORY Type Description Date Medical History Type II DM Medical History Eye exam 10/2014 No retinopathy Medical History Hypercholesterolemia Surgical History No Surgical history information
--- OUTSIDE RECORDS SUMMARY | 2019-11-09 19:35 | XMS REPORT ---
Author Author Kodi JOLLY Organization [facility] Address [address] [place] [address] Care Team Providers Care Digital Cartographer Name Role Phone CHIVO JOLLY Unavailable PROBLEMS Type Condition ICD9-CM Code [id number] Code Onset Dates Condition S tatus SNOMED Code Problem Seasonal allergic rhinitis, unspecified allergic rhinitis trigger J30.2 Active 855648676 Problem Moderate episode of recurrent major depressive disorder F33.1 Active 169800084 Problem Hyperlipemia E78.5 Active 2991227 4 Problem Type 2 diabetes mellitus with hyperglycemia E11.65 Active [id number] Problem Type 2 diabetes mellitus without complications E11 .9 Active 098580205 ALLERGIES No Information ENCOUNTERS Encounter Location Date Diagnosis [address] [address] Apr, [address] [address] Dec, Type 2 diabetes mellitus with hyperglyce primitivo E11.[address] [address] Nov, Type 2 diabetes mellitus with hyperglyce primitivo E11.[address] [facility] [address] [facility] [id number] [address] [place] [address] Nov, [facility] [address] [place] [address] Sep, Sinusitis acute J01.90 [facility] [address] [facility] [id number] [address] [place] [address] Apr, Acute non-recurrent maxillar y sinusitis J01.00 [address] nas[address]itis J00 [facility] [address] [facility] [id number] [address] [place] [address] Mar, Type 2 diabetes mellitus wit hout complications E11.9 ; Moderate episode of recurrent major depressive disorder F33.[address] [facility] [address] [facility] [id number] [address] [place] [address] Mar, [facility] [address] [place] [id number] [address] [place] [address] Feb, [facility] [address] [address] Jan, [facility] [address] [place] [id number] [address] [place] [address] Jan, Acute non-recurrent pansinus itis J01.40 [place] [address] [place] [id number] [address] [place] [address] Dec, Type 2 diabetes mellitus wit h hyperglycemia E11.65 [place] [address] [place] [id number] [address] [place] [address] Jul, Type 2 diabetes mellitus wit h hyperglycemia E11.65 [place] [address] [facility] [id number] [address] [place] [address] Jun, Hyperlipemia E78.5 [facility] [address] [place] [id number] [address] [place] [address] October, Strep throat J02.0 and Sore throat J02.9 [place] [id number] [place] [address] Aug, [facility] [id number] [place] [address] 14 Jul, 2016 Seasonal allergic rhinitis, unspecified allergic rhinitis trigger J30.2 [place] [address] [place] [id number] [address] [place] [address] Jun, Type 2 diabetes mellitus wit hout complications E11.9 [place] [address] [address] [place] [id number] [address] [place] [address] May, Type 2 diabetes mellitus wit h hyperglycemia E11.[address] [facility] [address] [facility] [id number] [address] [place] [address] Mar, [facility] [address] [facility] [id number] [address] [place] [phone] Mar, [facility] [address] [facility] [id number] [address] [place] [address] Feb, Type 2 diabetes mellitus wit hout complications E11.9 [facility] [address] [id number] [address] [place] [address] Feb, [facility] [address] [facility] [id number] [address] [place] [address] October, Type 2 diabetes mellitus wit h hyperglycemia E11.65 [facility] [address] [facility] [id number] [address] [place] [address] Aug, Hyperlipemia E78.5 [facility] [address] [facility] [id number] [address] [place] [address] Jul, Hyperlipemia E78.5 [facility] [address] [facility] [id number] [address] [place] [address] Jul, Type 2 diabetes mellitus wit h complication E11.8 and Carpal tunnel syndrome G56.00 [facility] [address] [facility] [id number] [address] [place] [address] Jul, [facility] [address] [facility] [id number] [address] [place] [phone] Jul, [facility] [address] [facility] [id number] [address] [place] [address] Feb, [facility] [address] [facility] [id number] [address] [place] [id number] Nov, [facility] [address] [facility] [id number] [address] [place] [address] October, Diabetes mellitus without me ntion of complication, type II or unspecified type, not stated as uncontrolled 250.[address] [facility] [address] [id number] [address] [place] [phone] 30 Sep, 2014 [facility] [address] [id number] [address] [place] [phone] 28 Sep, 2014 [facility] [address] [id number] [address] [place] [phone] Sep, [facility] [address] [id number] [address] [place] [phone] Sep, [facility] [address] [id number] [address] [place] [phone] Aug, [facility] [address] [id number] [address] [place] [phone] Aug, [facility] [address] [id number] [address] [place] [phone] Aug, [facility] [address] [id number] [address] [place] [phone] Aug, [facility] [address] [id number] [address] [place] [phone] Apr, [facility] [address] [id number] [address] [place] [phone] Apr, [facility] [address] [id number] [address] [place] [phone] Mar, [facility] [address] [id number] [address] [place] [phone] Mar, [facility] [address] [id number] [address] [place] [phone] Mar, [facility] [address] [id number] [address] [place] [phone] Mar, [facility] [address] [id number] [address] [place] [phone] Mar, [facility] [address] [id number] [facility] [place] [address] Feb, [facility] [address] [id number] [address] [place] [address], [place] [address] Feb, [facility] [address] [id number] [address] [place] [address], [place] [address] Feb, [facility] [address] [id number] [address] [place] [address], [place] [address] Feb, [facility] [address] [id number] [address] [place] [address], [place] [address] Dec, [facility] [address] [id number] [address] [place] [address], [place] [address] Dec, [facility] [address] [id number] [address] [place] [address], [place] [address] Dec, [facility] [address] [id number] [address] [place] [address], [place] [address] Nov, [facility] [address] [id number] [address] [place] [address], [place] [address] Nov, [facility] [address] [id number] [address] [place] [address], [place] [address] October, [facility] [address] [id number] [address] [place] [address], [place] [address] October, [facility] [address] [id number] [address] [place] [address], [place] [address] Sep, [facility] [address] [id number] [address] [place] [address], [place] [address] Sep, [facility] [address] [id number] [address] [place] [address], [place] [address] 08 Sep, 2013 [facility] [address] [id number] [address] [place] [address], [place] [address] Sep, [facility] [address] [id number] [address] [place] [address], [place] [address] 07 Sep, 2013 [facility] [address] [id number] [address] [place] [address], [place] [address] Aug, [facility] [address] [id number] [address] [place] [address], [place] [address] Aug, [facility] [address] [id number] [address] [place] [address], [place] [address] Mar, [facility] [address] [id number] [address] [place] [address], [place] [address] Mar, [facility] [address] [id number] [address] [place] [address], [place] [address] Jan, [facility] [address] [id number] [address] [place] [address], [place] [address] Jan, [facility] [address] [id number] [address] [place] [address], [place] [address] Dec, [facility] [address] [id number] [address] [place] [address], [place] [address] Dec, [facility] [address] [id number] [address] [place] [address], [place] [address] Nov, [facility] [address] [id number] [address] [place] [address], [place] [address] Nov, [facility] [address] [id number] [address] [place] [address], [place] [address] Nov, [facility] [address] [id number] [address] [place] [address], [place] [address] Sep, [facility] [address] [id number] [address] [place] [address], [place] [address] Sep, [facility] [address] [id number] [address] [place] [address], [place] [address] Aug, [facility] [address] [id number] [address] [place] [address], [place] [address] Aug, [facility] [address] [id number] [address] [place] [address], [place] [address] Aug, [facility] [address] [id number] [address] [place] [address], [place] [address] Jul, [facility] [address] [id number] [address] [place] [address], [place] [address] Jul, [facility] [address] [id number] [address] [place] [address], [place] [address] May, [facility] [address] [id number] [address] [place] [address], [place] [address] May, [facility] [address] [id number] [address] [place] [address], [place] [address] Apr, [facility] [address] [id number] [address] [place] [address], [place] [address] Apr, [facility] [address] [id number] [address] [place] [address], [place] [address] Mar, [facility] [address] [id number] [address] [place] [address], [place] [address] Mar, [facility] [address] [id number] [address] [place] [address], [place] [address] Mar, [facility] [address] [id number] [address] [place] [address], [place] [address] Mar, [facility] [address] [id number] [address] [place] [address], [place] [address] Mar, [facility] [address] [id number] [address] [place] [address], [place] [address] Mar, [facility] [address] [id number] [address] [place] [address], [place] [address] Mar, [facility] [address] [id number] [address] [place] [address], [place] [address] Mar, [facility] [address] [id number] [address] [place] [address], [place] [address] Mar, [facility] [address] [id number] [address] [place] [address], [place] [address] Mar, [facility] [address] [id number] [address] [place] [address], [place] [address] Mar, [facility] [address] [id number] [address] [place] [address], [place] [address] 15 Mar, 2012 [facility] [address] [id number] [address] [place] [address], [place] [address] 15 Mar, 2012 [facility] [address] [id number] [address] [place] [address], [place] [address] 13 Feb, 2012 [facility] [address] [id number] [address] [place] [address], [place] [address] 06 Feb, 2012 [facility] [address] [id number] [address] [place] [address], [place] [address] 04 Feb, 2012 [facility] [address] [id number] [address] [place] [address], [place] [address] 16 Jan, 2012 [facility] [address] [id number] [address] [place] [address], [place] [address] Jan, [facility] [address] [id number] [address] [place] [address], [place] [address] October, [facility] [address] [id number] [address] [place] [address], [place] [address] 18 Sep, 2011 [facility] [address] [id number] [address] [place] [address] Sep, [facility] [address] [id number] [address] [place] [address], [place] [address] Aug, [facility] [address] [id number] [address] [place] [address], [place] [address] Jul, [facility] [address] [id number] [address] [place] [address], [place] [address] Jul, [facility] [address] [facility] [id number] [address] [place] [address] Jul, [facility] [address] [facility] [id number] [address] [place] [address] Jul, [facility] [address] [facility] [id number] [address] [place] [address] Jun, [facility] [address] [facility] [id number] [address] [place] [address] May, IMMUNIZATIONS No Known Immunizations SOCIAL HISTORY [...]
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
== END 2019-11-09 18:21 | disposition home or self-care (01) ==
LOC: EDUNIT# 16:23 → ER FS 16:24
DX: S46.912A Strain of unspecified muscle, fascia and tendon at shoulder and upper arm level, left arm, initial encounter (principal); S80.811A Abrasion, right lower leg, initial encounter; E11.65 Type 2 diabetes mellitus with hyperglycemia; M77.8 Other enthesopathies, not elsewhere classified; M54.2 Cervicalgia; F32.9 Major depressive disorder, single episode, unspecified; F17.210 Nicotine dependence, cigarettes, uncomplicated; F17.290 Nicotine dependence, other tobacco product, uncomplicated; Z95.5 Presence of coronary angioplasty implant and graft; Z79.84 Long term (current) use of oral hypoglycemic drugs; Z82.49 Family history of ischemic heart disease and other diseases of the circulatory system; V49.40XA Driver injured in collision with unspecified motor vehicles in traffic accident, initial encounter
CPT/HCPCS: 36415; 71046; 72050; 73030; 73080; 80053; 80306; 80320; 81000; 83690; 83735; 85007; 85027

== ENCOUNTER 2019-12-28 20:34 | Emergency (ER) | payer OTHER ==
[~2019-12-28] VITALS: Ht 182.8 cm; Wt 91.1 kg
[2019-12-28 20:40] VITALS: BP 135/88
[2019-12-28] MEDS ORDERED: CLOT15CR6 TP (20:58)
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
--- OUTSIDE RECORDS SUMMARY | 2019-12-28 22:04 | XMS REPORT ---
Author Author Kodi JOLLY Organization [facility] Address [address] [place] [address] Care Team Providers Care Correspondence Review Clerk Name Role Phone CHIVO JOLLY Unavailable PROBLEMS Type Condition ICD9-CM Code [id number] Code Onset Dates Condition S tatus SNOMED Code Problem Moderate episode of recurrent major depressive disorder F33.1 Active 348982318 Problem High foot arch Q66.7 Active 06157 004 Problem Hyperlipemia E78.5 Active 5815994 4 Problem Type 2 diabetes mellitus with hyperglycemia E11.65 Active 201315199128720 Problem Type 2 diabetes mellitus without complications E11 .9 Active 143417427 Problem Seasonal allergic rhinitis, unspecified allergic rhinitis trigger J30.2 Active [id number] ALLERGIES No Information ENCOUNTERS Encounter Location Date Diagnosis [facility] LEVI [facility] IN [facility] [address] [id number] [place] [address] 14 Nov, 2019 Cough R05 and Sore throat J0 2.[address] [id number] [place] [address] Jun, [address] [id number] [address] Apr, [facility] [address] [id number] [place] [address] Apr, Acute rhinosinusitis J01.90 [facility] [address] 340 [id number] [address] 09 Feb, 2019 Sore throat J02.9 and Acute non-recurrent maxillary sinusitis J01.[address] 340B [id number] [place] [address] Jan, [address] 340B [id number] [place] [address] Jan, [facility] [address] 340B [id number] [place] [address] Jan, [facility] [address] 340B [id number] [place] [address] Jan, [facility] LEVI GOODWIN [address] 340B [id number] [place] [address] Dec, [facility] HAILEE [address] [facility] [id number] [address] Dec, [facility] LEVI GOODWIN [address] 340B [id number] [place] [address] Dec, Type 2 diabetes mellitus wit h hyperglycemia E11.65 ; Immunization counseling Z71.89 ; Onychomycosis B35.1 ; Tinea pedis of both feet B35.3 and High foot arch Q66.7 [facility] LEVI GOODWIN [address] 340B [id number] [place] [address] Dec, Type 2 diabetes mellitus wit h hyperglycemia E11.65 [facility] LEVI [address] 340B [id number] [place] [address] Nov, Type 2 diabetes mellitus wit h hyperglycemia E11.65 and Hyperlipemia E78.5 [facility] [address] [facility] [id number] [address] [place] [address] Nov, [facility] [address] [id number] [place] [address] Sep, Sinusitis acute J01.90 [facility] [address] [facility] [id number] [address] [place] [address] Apr, Acute non-recurrent maxillar y sinusitis J01.00 and Acute nasopharyngitis J00 [facility] [address] [facility] [id number] [address] [place] [address] Mar, Type 2 diabetes mellitus wit hout complications E11.9 ; Moderate episode of recurrent major depressive disorder F33.1 and Hyperlipemia E78.5 [facility] [address] [facility] [id number] [address] [place] [address] Mar, [facility] [address] [facility] [id number] [address] [place] [address] Feb, [facility] [address] [facility] [id number] [address] [place] [address] Jan, [facility] [address] [facility] [id number] [address] [place] [address] Jan, Acute non-recurrent pansinus itis J01.40 [place] [address] [facility] [id number] [address] [place] [address] Dec, Type 2 diabetes mellitus wit h hyperglycemia E11.65 [place] [address] [facility] [id number] [address] [place] [address] Jul, Type 2 diabetes mellitus wit h hyperglycemia E11.65 [place] [address] [facility] [id number] [address] [place] [address] Jun, Hyperlipemia E78.5 [facility] IN [facility] [address] [place] [id number] [address] [place] [address] October, Strep throat J02.0 and Sore throat J02.9 [place] [address] [facility] [id number] [address] [place] [address] Aug, [facility] [address] [facility] [id number] [address] [place] [address] 14 Jul, 2016 Seasonal allergic rhinitis, unspecified allergic rhinitis trigger J30.2 [place] [address] [facility] [id number] [address] [place] [address] Jun, Type 2 diabetes mellitus wit hout complications E11.9 [place] [id number] [facility] [id number] [address] [place] [address] May, Type 2 diabetes mellitus wit h hyperglycemia E11.65 and Hyperlipemia E78.5 [place] [address] [facility] [id number] [address] [place] [address] Mar, [facility] [address] [facility] [id number] [address] [place] [address] Mar, [facility] [address] [facility] [id number] [address] [place] [address] Feb, Type 2 diabetes mellitus wit hout complications E11.9 [facility] [address] [facility] [id number] [address] [place] [address] Feb, [facility] [address] [facility] [id number] [address] [place] [address] October, Type 2 diabetes mellitus wit h hyperglycemia E11.65 [facility] [address] [facility] [id number] [address] [place] [address] Aug, Hyperlipemia E78.5 [facility] [address] [facility] [id number] [address] [place] [address] Jul, Hyperlipemia E78.5 [facility] [address] [facility] [id number] [address] [place] [address] Jul, Type 2 diabetes mellitus wit h complication E11.8 and Carpal tunnel syndrome G56.00 [facility] [address] [facility] [id number] [address] [place] [address] Jul, [facility] [address] [facility] [id number] [address] [place] [address] Jul, [facility] [address] [facility] [id number] [address] [place] [address] Feb, [facility] [address] [place] [id number] [address] [place] [address] Nov, [facility] [address] [facility] [id number] [address] [place] [address] October, Diabetes mellitus without me ntion of complication, type II or unspecified type, not stated as uncontrolled 250.00 and Proteinuria 791.0 [facility] [address] [id number] [address] [place] [address], [place] [address] 30 Sep, 2014 [facility] [address] [id number] [address] [place] [address], [place] [address] 28 Sep, 2014 [facility] [address] [id number] [address] [place] [address], [place] [address] 14 Sep, 2014 [facility] [address] [id number] [address] [place] [address], [place] [address] 13 Sep, 2014 [facility] [address] [id number] [address] [place] [address], [place] [address] 24 Aug, 2014 [facility] [address] [id number] [address] [place] [address], [place] [address] 24 Aug, 2014 [facility] [address] [id number] [address] [place] [address], [place] [address] Aug, [facility] [address] [id number] [address] [place] [address], [place] [address] Aug, [facility] [address] [id number] [address] [place] [address], [place] [address] Apr, [facility] [address] [id number] [address] [place] [address], [place] [address] Apr, [facility] [address] [id number] [address] [place] [address], [place] [address] Mar, [facility] [address] [id number] [address] [place] [address], [place] [address] Mar, [facility] [address] [id number] [address] [place] [address], [place] [address] Mar, [facility] [address] [id number] [address] [place] [address], [place] [address] Mar, [facility] [address] [id number] [address] [place] [address], [place] [address] Mar, [facility] [address] [id number] [address] [place] [address], [place] [address] 04 Feb, 2014 [facility] [address] [id number] [address] [place] [address], [place] [address] 04 Feb, 2014 [facility] [address] [id number] [address] [place] [address], [place] [address] Feb, [facility] [address] [id number] [address] [place] [address], [place] [address] Feb, [facility] [address] [id number] [address] [place] [address], [place] [address] Dec, [facility] [address] [id number] [address] [place] [address], [place] [address] Dec, [facility] [address] [id number] [address] [place] [address], [place] [address] Dec, [facility] [address] [id number] [address] [place] [address], [place] [address] Nov, [facility] [address] [id number] [address] [place] [address], [place] [address] Nov, [facility] [address] [id number] [address] [place] [address], [place] [address] October, [facility] [address] [id number] [address] [place] [address], [place] [address] October, [facility] [address] [id number] [address] [place] [address], [place] [address] Sep, [facility] [address] [id number] [address] [place] [address], [place] [address] 10 Sep, 2013 [facility] [address] [id number] [address] [place] [address], [place] [address] 08 Sep, 2013 [facility] [address] [id number] [address] [place] [address], [place] [address] 07 Sep, 2013 [facility] [address] [id number] [address] [place] [address], [place] [address] Sep, [facility] [address] [id number] [address] [place] [address], [place] [address] Aug, [facility] [address] [id number] [address] [place] [address], [place] [address] Aug, [facility] [address] [id number] [address] [place] [address], [place] [address] Mar, [facility] [address] [id number] [address] [place] [address], [place] [address] Mar, [facility] [address] [id number] [address] [place] [address], [place] [address] Jan, [facility] [address] [id number] [address] [place] [address], [place] [address] Jan, [facility] [address] [id number] [address] [place] [address], [place] [address] Dec, [facility] [address] [id number] [address] [place] [address], [place] [address] Dec, [facility] [address] [id number] [address] [place] [address], [place] [address] Nov, [facility] [address] [id number] [address] [place] [address], [place] [address] Nov, [facility] [address] [id number] [address] [place] [address], [place] [address] Nov, [facility] [address] [id number] [address] [place] [address], [place] [address] Sep, [facility] [address] [id number] [address] [place] [address], [place] [address] Sep, [facility] [address] [id number] [address] [place] [address], [place] [address] Aug, [facility] [address] [id number] [address] [place] [address], [place] [address] Aug, [facility] [address] [id number] [address] [place] [address], [place] [address] Aug, [facility] [address] [id number] [address] [place] [address], [place] [address] Jul, [facility] [address] [id number] [address] [place] [address], [place] [address] Jul, [facility] [address] [id number] [address] [place] [address], [place] [address] May, [facility] [address] [id number] [address] [place] [address], [place] [address] May, [facility] [address] [id number] [address] [place] [address], [place] [address] Apr, [facility] [address] [id number] [address] [place] [address], [place] [address] Apr, [facility] [address] [id number] [address] [place] [address], [place] [address] Mar, [facility] [address] [id number] [address] [place] [address] Mar, [facility] [address] [id number] [address] [place] [address], [place] [address] Mar, [facility] [address] [id number] [address] [place] [address] Mar, [facility] [address] [id number] [address] [place] [address] Mar, [facility] [address] [id number] [address] [place] [address] Mar, [facility] [address] [id number] [address] [place] [address], [place] [address] Mar, [facility] [address] [id number] [address] [place] [address] Mar, [facility] [address] [id number] [address] [place] [address] Mar, [facility] [address] [id number] [address] [place] [address], [place] [address] 25 Mar, 2012 [facility] [address] [id number] [address] [place] [address], [place] [address] 25 Mar, 2012 [facility] [address] [id number] [address] [place] [address], [place] [address] 15 Mar, 2012 [facility] [address] [id number] [address] [place] [address], [place] [address] 15 Mar, 2012 [facility] [address] [id number] [address] [place] [address], [place] [address] 13 Feb, 2012 [facility] [address] [id number] [address] [place] [address], [place] [address] 06 Feb, 2012 [facility] [address] [id number] [address] [place] [address], [place] [address] 04 Feb, 2012 [facility] [address] [id number] [address] [place] [address], [place] [address] 16 Jan, 2012 [facility] [address] [id number] [address] [place] [address], [place] [address] Jan, [facility] [address] [id number] [address] [place] [address], [place] [address] October, [facility] [address] [id number] [address] [place] [address], [place] [address] 18 Sep, 2011 [facility] [address] [id number] [address] [place] [address], [place] [address] Sep, [facility] [address] [id number] [address] [place] [address], [place] [address] Aug, [facility] [address] [id number] [address] [place] [address], [place] [address] Jul, [facility] [address] [id number] [address] [place] [address], [place] [address] Jul, [facility] [address] [id number] [address] [place] [address], [place] [address] Jul, [facility] [address] [facility] [id number] [address] [place] [address] Jul, [facility] [address] [facility] [id number] [address] [place] [address] Jun, [facility] [address] [facility] [id number] [address] [place] [address] May, IMMUNIZATIONS No Known Immunizations SOCIAL HISTORY Never Assessed REASON FOR VISIT PLAN OF CARE VITAL SIGNS MEDICATIONS No Known Medications RESULTS No Results PROCEDURES No Known procedures INSTRUCTIONS MEDICATIONS ADMINISTERED No Known Medications MEDICAL (GENERAL) HISTORY Type Description Date Medical History Type II DM Medical History Eye exam 10/2014 No retinopathy Medical History Hypercholesterolemia Surgical History heart cath 11/2018 Hospitalization History see surgeries
--- OUTSIDE RECORDS SUMMARY | 2019-12-28 22:04 | XMS REPORT ---
Author Author Kodi JOLLY Organization [facility] Address [address] [place] [address] Care Team Providers Care Hotel Houseman Name Role Phone CHIVO JOLLY Unavailable PROBLEMS Type Condition ICD9-CM Code FGS28-QQ Code Onset Dates Condition S tatus SNOMED Code Problem Moderate episode of recurrent major depressive disorder F33.1 Active 752567299 Problem High foot arch Q66.7 Active 10841 004 Problem Hyperlipemia E78.5 Active 7245340 4 Problem Type 2 diabetes mellitus with hyperglycemia E11.65 Active [id number] Problem Type 2 diabetes mellitus without complications E11 .9 Active 329576698 Problem Seasonal allergic rhinitis, unspecified allergic rhinitis trigger J30.2 Active [id number] ALLERGIES No Information ENCOUNTERS Encounter Location Date Diagnosis [address] [id number] [place] [address] Nov, [facility] [address] [id number] [place] [address] 14 Nov, 2019 Cough R05 and Sore throat J0 2.[address] [id number] [place] [address] Jun, [address] [id number] [place] [address] Apr, [facility] [address] [id number] [place] [address] Apr, Acute rhinosinusitis J01.90 [facility] [address] 340 [id number] [place] [address] Feb, Sore throat J02.9 and Acute non-recurrent maxillary sinusitis J01.[address] 340B [id number] [place] [address] Jan, [facility] [place] [address] [id number] [place] [address] Jan, [facility] [place] [address] [id number] [place] [address] Jan, [facility] [place] [address] 340[address] [id number] [place] [address] Jan, [facility] [place] [address] 340B [id number] [place] [address] Dec, [facility] [id number] [place] [address] Dec, [facility] [place] [address] [id number] [place] [address] Dec, Type 2 diabetes mellitus wit h hyperglycemia E11.65 ; Immunization counseling Z71.89 ; Onychomycosis B35.1 ; Tinea pedis of both feet B35.3 and High foot arch Q66.7 [facility] [place] [address] 340B [id number] [place] [address] Dec, Type 2 diabetes mellitus wit h hyperglycemia E11.65 [facility] [place] [address] 340[address] [id number] [place] [address] Nov, Type 2 diabetes mellitus wit h hyperglycemia E11.65 and Hyperlipemia E78.5 [facility] [address] [facility] [id number] [address] [place] [address] Nov, [facility] [place] [facility] [address] 340 [id number] [place] [address] Sep, Sinusitis acute J01.90 [facility] [address] [facility] [id number] [address] [place] [address] Apr, Acute non-recurrent maxillar y sinusitis J01.00 and Acute nasopharyngitis J00 [facility] [address] [facility] [id number] [address] [place] [address] Mar, Type 2 diabetes mellitus wit hout complications E11.9 ; Moderate episode of recurrent major depressive disorder F33.1 and Hyperlipemia E78.5 [place] [address] [place] [address] Mar, [facility] [address] [place] [id number] [address] [place] [address] Feb, [facility] [address] [address] Jan, [facility] [address] [place] [id number] [place] [address] Jan, Acute non-recurrent pansinus itis J01.40 [place] [address] [place] [id number] [place] [address] Dec, Type 2 diabetes mellitus wit h hyperglycemia E11.65 [place] [address] [address] Jul, Type 2 diabetes mellitus wit h hyperglycemia E11.65 [place] [address] [address] Jun, Hyperlipemia E78.5 [facility] [address] [place] [id number] [address] [place] [address] October, Strep throat J02.0 and Sore throat J02.9 [place] [address] [place] [id number] [address] [place] [address] Aug, [facility] [address] [address] 14 Jul, 2016 Seasonal allergic rhinitis, unspecified allergic rhinitis trigger J30.2 [place] [address] [place] [id number] [place] [address] Jun, Type 2 diabetes mellitus wit hout complications E11.9 [place] [address] [address] May, Type 2 diabetes mellitus wit h hyperglycemia E11.65 and Hyperlipemia E78.5 [facility] [address] [facility] [id number] [address] [place] [address] Mar, [facility] [address] [facility] [id number] [address] [place] [address] Mar, [facility] [address] [facility] [id number] [address] [place] [address] Feb, Type 2 diabetes mellitus wit hout complications E11.9 [facility] [address] [facility] [id number] [address] [place] [address] Feb, [facility] [address] [facility] [id number] [address] [place] [address] October, Type 2 diabetes mellitus wit h hyperglycemia E11.65 [facility] [address] [facility] [id number] [address] [place] [address] Aug, Hyperlipemia E78.5 [facility] [address] [facility] [id number] [address] [place] [address] Jul, Hyperlipemia E78.5 [facility] [address] [facility] [id number] [address] [place] [address] Jul, Type 2 diabetes mellitus wit h complication E11.8 and Carpal tunnel syndrome G56.00 [facility] [address] [facility] [id number] [address] [place] [address] Jul, [facility] [address] [facility] [id number] [address] [place] [address] Jul, [facility] [address] [facility] [id number] [address] [place] [address] Feb, [facility] [address] [facility] [id number] [address] [place] [address] Nov, [facility] [address] [facility] [id number] [address] [place] [address] October, Diabetes mellitus without me ntion of complication, type II or unspecified type, not stated as uncontrolled 250.00 and Proteinuria 791.0 [facility] [address] [id number] [address] [place] [address] Sep, [facility] [address] [id number] [address] [place] [address] Sep, [facility] [address] [id number] [address] [place] [address] Sep, [facility] [address] [id number] [address] [place] [address] Sep, [facility] [address] [id number] [address] [place] [address] Aug, [facility] [address] [id number] [address] [place] [address] Aug, [facility] [address] [id number] [address] [place] [address] Aug, [facility] [address] [id number] [address] [place] [address] Aug, [facility] [address] [id number] [address] [place] [address] Apr, [facility] [address] [id number] [address] [place] [address] Apr, [facility] [address] [id number] [address] [place] [address] Mar, [facility] [address] [id number] [address] [place] [address] Mar, [facility] [address] [id number] [address] [place] [address] Mar, [facility] [address] [id number] [address] [place] [address] Mar, [facility] [address] [id number] [address] [place] [address] Mar, [facility] [address] [id number] [address] [place] [address], [place] [address] Feb, [facility] [address] [id number] [address] [place] [address], [place] [address] 04 Feb, 2014 [facility] [address] [id number] [address] [place] [address], [place] [address] Feb, [facility] [address] [id number] [address] [place] [address], [place] [address] Feb, [facility] [address] [id number] [address] [place] [address], [place] [address] Dec, [facility] [address] [id number] [address] [place] [address], [place] [address] Dec, [facility] [address] [id number] [address] [place] [address], [place] [address] Dec, [facility] [address] [id number] [address] [place] [address], [place] [address] Nov, [facility] [address] [id number] [address] [place] [address], [place] [address] Nov, [facility] [address] [id number] [address] [place] [address], [place] [address] October, [facility] [address] [id number] [address] [place] [address], [place] [address] October, [facility] [address] [id number] [address] [place] [address], [place] [address] Sep, [facility] [address] [id number] [address] [place] [address], [place] [address] Sep, [facility] [address] [id number] [address] [place] [address], [place] [address] 08 Sep, 2013 [facility] [address] [id number] [address] [place] [address], [place] [address] Sep, [facility] [address] [id number] [address] [place] [address], [place] [address] 07 Sep, 2013 [facility] [address] [id number] [address] [place] [address], [place] [address] Aug, [facility] [address] [id number] [address] [place] [address], [place] [address] Aug, [facility] [address] [id number] [address] [place] [address], [place] [address] Mar, [facility] [address] [id number] [address] [place] [address], [place] [address] Mar, [facility] [address] [id number] [address] [place] [address], [place] [address] Jan, [facility] [address] [id number] [address] [place] [address], [place] [address] Jan, [facility] [address] [id number] [address] [place] [address], [place] [address] Dec, [facility] [address] [id number] [address] [place] [address], [place] [address] Dec, [facility] [address] [id number] [address] [place] [address], [place] [address] Nov, [facility] [address] [id number] [address] [place] [address], [place] [address] Nov, [facility] [address] [id number] [address] [place] [address], [place] [address] Nov, [facility] [address] [id number] [address] [place] [address], [place] [address] Sep, [facility] [address] [id number] [address] [place] [address], [place] [address] Sep, [facility] [address] [id number] [address] [place] [address], [place] [address] Aug, [facility] [address] [id number] [address] [place] [address], [place] [address] Aug, [facility] [address] [id number] [address] [place] [address], [place] [address] Aug, [facility] [address] [id number] [address] [place] [address], [place] [address] Jul, [facility] [address] [id number] [address] [place] [address], [place] [address] Jul, [facility] [address] [id number] [address] [place] [address], [place] [address] May, [facility] [address] [id number] [address] [place] [address], [place] [address] May, [facility] [address] [id number] [address] [place] [address], [place] [address] Apr, [facility] [address] [id number] [address] [place] [address], [place] [address] Apr, [facility] [address] [id number] [address] [place] [address] Mar, [facility] [address] [id number] [address] [place] [address], [place] [address] Mar, [facility] [address] [id number] [address] [place] [address] Mar, [facility] [address] [id number] [address] [place] [address], [place] [address] Mar, [facility] [address] [id number] [address] [place] [address] Mar, [facility] [address] [id number] [address] [place] [address], [place] [address] Mar, [facility] [address] [id number] [address] [place] [address] Mar, [facility] [address] [id number] [address] [place] [address], [place] [address] Mar, [facility] [address] [id number] [address] [place] [address], [place] [address] 25 Mar, 2012 [facility] [address] [id number] [address] [place] [address], [place] [address] 25 Mar, 2012 [facility] [address] [id number] [address] [place] [address], [place] [address] 25 Mar, 2012 [facility] [address] [id number] [address] [place] [address], [place] [address] 15 Mar, 2012 [facility] [address] [id number] [address] [place] [address], [place] [address] 15 Mar, 2012 [facility] [address] [id number] [address] [place] [address], [place] [address] 13 Feb, 2012 [facility] [address] [id number] [address] [place] [address], [place] [address] 06 Feb, 2012 [facility] [address] [id number] [address] [place] [address], [place] [address] 04 Feb, 2012 [facility] [address] [id number] [address] [place] [address], [place] [address] 16 Jan, 2012 [facility] [address] [id number] [address] [place] [address], [place] [address] Jan, [facility] [address] [id number] [address] [place] [address], [place] [address] October, [facility] [address] [id number] [address] [place] [address], [place] [address] 18 Sep, 2011 [facility] [address] [id number] [address] [place] [address], [place] [address] Sep, [facility] [address] [id number] [address] [place] [address], [place] [address] Aug, [facility] [address] [id number] [address] [place] [address], [place] [address] Jul, [facility] [address] [id number] [address] [place] [address], [place] [address] Jul, [facility] [address] [facility] [id number] [address] [place] [address] Jul, [facility] [address] [facility] [id number] [address] [place] [address] Jul, [facility] [address] [facility] [id number] [address] [place] [address] Jun, [facility] [address] [facility] [id number] [address] [place] [address] May, IMMUNIZATIONS No Known Immunizations SOCIAL HISTORY [...]
--- OUTSIDE RECORDS SUMMARY | 2019-12-28 22:04 | XMS REPORT ---
Author Author Kodi JOLLY Organization [facility] Address [address] [place] [address] Care Team Providers Care Superintendent Institution Name Role Phone CHIVO JOLLY Unavailable PROBLEMS Type Condition ICD9-CM Code PEP54-IN Code Onset Dates Condition S tatus SNOMED Code Problem Moderate episode of recurrent major depressive disorder F33.1 Active 551469693 Problem High foot arch Q66.7 Active 61986 004 Problem Hyperlipemia E78.5 Active 2535557 4 Problem Type 2 diabetes mellitus with hyperglycemia E11.65 Active 797613953101464 Problem Type 2 diabetes mellitus without complications E11 .9 Active 378595759 Problem Seasonal allergic rhinitis, unspecified allergic rhinitis trigger J30.2 Active [id number] ALLERGIES No Information ENCOUNTERS Encounter Location Date Diagnosis [facility] [address] [id number] [address] 14 Nov, 2019 Cough R05 and Sore throat J0 2.[address] [id number] [place] [address] Jun, [address] [id number] [place] [address] Apr, [facility] [address] [id number] [place] [address] Apr, Acute rhinosinusitis J01.[address] [facility] [facility] [address] [id number] [address] 09 Feb, 2019 Sore throat J02.9 and Acute non-recurrent maxillary sinusitis J01.[address] 340B [id number] [place] [address] Jan, [address]B [id number] [place] [address] Jan, [facility] [address] [id number] [place] [address] Jan, [facility] [address]B [id number] [place] [address] Jan, [facility] [address] 340B [id number] [place] [address] Dec, [facility] [address] [facility] [id number] [address] Dec, [facility] [address] 340B [id number] [place] [address] Dec, Type 2 diabetes mellitus wit h hyperglycemia E11.65 ; Immunization counseling Z71.89 ; Onychomycosis B35.1 ; Tinea pedis of both feet B35.3 and High foot arch Q66.7 [facility] [address] 340B [id number] [place] [address] Dec, Type 2 diabetes mellitus wit h hyperglycemia E11.65 [facility] LEVI [address] 340B [id number] [place] [address] Nov, Type 2 diabetes mellitus wit h hyperglycemia E11.65 and Hyperlipemia E78.5 [facility] [address] [facility] [id number] [address] [place] [address] Nov, [facility] [address] [id number] [place] [address] Sep, Sinusitis acute J01.90 [facility] [address] [facility] [id number] [address] [place] [address] Apr, Acute non-recurrent maxillar y sinusitis J01.00 and Acute nasopharyngitis J00 [facility] [address] [facility] [id number] [address] [place] [address] Mar, Type 2 diabetes mellitus wit hout complications E11.9 ; Moderate episode of recurrent major depressive disorder F33.1 and Hyperlipemia E78.5 [facility] [address] [facility] [id number] [address] [place] [address] Mar, [facility] [address] [facility] [id number] [address] [place] [address] Feb, [facility] [address] [facility] [id number] [address] [place] [address] Jan, [facility] [address] [facility] [id number] [address] [place] [address] Jan, Acute non-recurrent pansinus itis J01.40 [place] [address] [address] [facility] [id number] [address] [place] [address] Dec, Type 2 diabetes mellitus wit h hyperglycemia E11.65 [place] [address] [facility] [id number] [address] [place] [address] Jul, Type 2 diabetes mellitus wit h hyperglycemia E11.65 [place] [address] [facility] [id number] [address] [place] [address] Jun, Hyperlipemia E78.5 [facility] [address] [place] [id number] [address] [place] [address] October, Strep throat J02.0 and Sore throat J02.9 [place] [address] [facility] [id number] [address] [place] [address] Aug, [facility] [address] [facility] [id number] [address] [place] [address] 14 Jul, 2016 Seasonal allergic rhinitis, unspecified allergic rhinitis trigger J30.2 [place] [address] [facility] [id number] [address] [place] [address] Jun, Type 2 diabetes mellitus wit hout complications E11.9 [place] [address] [facility] [id number] [address] [place] [address] May, Type 2 diabetes mellitus wit h hyperglycemia E11.65 and Hyperlipemia E78.5 [place] [address] [facility] [id number] [address] [place] [address] Mar, [facility] [address] [facility] [id number] [address] [place] [address] Mar, [facility] [address] [facility] [id number] [address] [place] [address] Feb, Type 2 diabetes mellitus wit hout complications E11.9 [facility] [address] [facility] [id number] [address] [place] [address] Feb, [facility] [address] [facility] [id number] [address] [place] [address] October, Type 2 diabetes mellitus wit h hyperglycemia E11.65 [facility] [address] [facility] [id number] [address] [place] [address] Aug, Hyperlipemia E78.5 [facility] [address] [facility] [id number] [address] [place] [address] Jul, Hyperlipemia E78.5 [facility] [address] [facility] [id number] [address] [place] [address] Jul, Type 2 diabetes mellitus wit h complication E11.8 and Carpal tunnel syndrome G56.00 [facility] [address] [facility] [id number] [address] [place] [address] Jul, [facility] [address] [facility] [id number] [address] [place] [address] Jul, [facility] [address] [facility] [id number] [address] [place] [address] Feb, [facility] [address] [place] [id number] [address] [place] [address] Nov, [facility] [address] [facility] [id number] [address] [place] [address] October, Diabetes mellitus without me ntion of complication, type II or unspecified type, not stated as uncontrolled 250.00 and Proteinuria 791.0 [facility] [address] [id number] [address] [place] [address], [place] [address] 30 Sep, 2014 [facility] [address] [id number] [address] [place] [address], [place] [address] 28 Sep, 2014 [facility] [address] [id number] [address] [place] [address], [place] [address] 14 Sep, 2014 [facility] [address] [id number] [address] [place] [address], [place] [address] 13 Sep, 2014 [facility] [address] [id number] [address] [place] [address], [place] [address] 24 Aug, 2014 [facility] [address] [id number] [address] [place] [address], [place] [address] 24 Aug, 2014 [facility] [address] [id number] [address] [place] [address], [place] [address] Aug, [facility] [address] [id number] [address] [place] [address], [place] [address] Aug, [facility] [address] [id number] [address] [place] [address], [place] [address] Apr, [facility] [address] [id number] [address] [place] [address], [place] [address] Apr, [facility] [address] [id number] [address] [place] [address], [place] [address] Mar, [facility] [address] [id number] [address] [place] [address], [place] [address] Mar, [facility] [address] [id number] [address] [place] [address], [place] [address] Mar, [facility] [address] [id number] [address] [place] [address], [place] [address] Mar, [facility] [address] [id number] [address] [place] [address], [place] [address] Mar, [facility] [address] [id number] [address] [place] [address], [place] [address] 04 Feb, 2014 [facility] [address] [id number] [address] [place] [address], [place] [address] 04 Feb, 2014 [facility] [address] [id number] [address] [place] [address], [place] [address] Feb, [facility] [address] [id number] [address] [place] [address], [place] [address] Feb, [facility] [address] [id number] [address] [place] [address], [place] [address] Dec, [facility] [address] [id number] [address] [place] [address], [place] [address] Dec, [facility] [address] [id number] [address] [place] [address], [place] [address] Dec, [facility] [address] [id number] [address] [place] [address], [place] [address] Nov, [facility] [address] [id number] [address] [place] [address], [place] [address] Nov, [facility] [address] [id number] [address] [place] [address], [place] [address] October, [facility] [address] [id number] [address] [place] [address], [place] [address] October, [facility] [address] [id number] [address] [place] [address], [place] [address] Sep, [facility] [address] [id number] [address] [place] [address], [place] [address] 10 Sep, 2013 [facility] [address] [id number] [address] [place] [address], [place] [address] 08 Sep, 2013 [facility] [address] [id number] [address] [place] [address], [place] [address] 07 Sep, 2013 [facility] [address] [id number] [address] [place] [address], [place] [address] Sep, [facility] [address] [id number] [address] [place] [address], [place] [address] Aug, [facility] [address] [id number] [address] [place] [address], [place] [address] Aug, [facility] [address] [id number] [address] [place] [address], [place] [address] Mar, [facility] [address] [id number] [address] [place] [address], [place] [address] Mar, [facility] [address] [id number] [address] [place] [address], [place] [address] Jan, [facility] [address] [id number] [address] [place] [address], [place] [address] Jan, [facility] [address] [id number] [address] [place] [address], [place] [address] Dec, [facility] [address] [id number] [address] [place] [address], [place] [address] Dec, [facility] [address] [id number] [address] [place] [address], [place] [address] Nov, [facility] [address] [id number] [address] [place] [address], [place] [address] Nov, [facility] [address] [id number] [address] [place] [address], [place] [address] Nov, [facility] [address] [id number] [address] [place] [address], [place] [address] Sep, [facility] [address] [id number] [address] [place] [address], [place] [address] Sep, [facility] [address] [id number] [address] [place] [address], [place] [address] Aug, [facility] [address] [id number] [address] [place] [address], [place] [address] Aug, [facility] [address] [id number] [address] [place] [address], [place] [address] Aug, [facility] [address] [id number] [address] [place] [address], [place] [address] Jul, [facility] [address] [id number] [address] [place] [address], [place] [address] Jul, [facility] [address] [id number] [address] [place] [address], [place] [address] May, [facility] [address] [id number] [address] [place] [address], [place] [address] May, [facility] [address] [id number] [address] [place] [address], [place] [address] Apr, [facility] [address] [id number] [address] [place] [address], [place] [address] Apr, [facility] [address] [id number] [address] [place] [address], [place] [address] Mar, [facility] [address] [id number] [address] [place] [address] Mar, [facility] [address] [id number] [address] [place] [address], [place] [address] Mar, [facility] [address] [id number] [address] [place] [address] Mar, [facility] [address] [id number] [address] [place] [address] Mar, [facility] [address] [id number] [address] [place] [address] Mar, [facility] [address] [id number] [address] [place] [address], [place] [address] Mar, [facility] [address] [id number] [address] [place] [address] Mar, [facility] [address] [id number] [address] [place] [address] Mar, [facility] [address] [id number] [address] [place] [address], [place] [address] 25 Mar, 2012 [facility] [address] [id number] [address] [place] [address], [place] [address] 25 Mar, 2012 [facility] [address] [id number] [address] [place] [address], [place] [address] 15 Mar, 2012 [facility] [address] [id number] [address] [place] [address], [place] [address] 15 Mar, 2012 [facility] [address] [id number] [address] [place] [address], [place] [address] 13 Feb, 2012 [facility] [address] [id number] [address] [place] [address], [place] [address] 06 Feb, 2012 [facility] [address] [id number] [address] [place] [address], [place] [address] 04 Feb, 2012 [facility] [address] [id number] [address] [place] [address], [place] [address] 16 Jan, 2012 [facility] [address] [id number] [address] [place] [address], [place] [address] Jan, [facility] [address] [id number] [address] [place] [address], [place] [address] October, [facility] [address] [id number] [address] [place] [address], [place] [address] 18 Sep, 2011 [facility] [address] [id number] [address] [place] [address], [place] [address] Sep, [facility] [address] [id number] [address] [place] [address], [place] [address] Aug, [facility] [address] [id number] [address] [place] [address], [place] [address] Jul, [facility] [address] [id number] [address] [place] [address], [place] [address] Jul, [facility] [address] [id number] [address] [place] [address], [place] [address] Jul, [facility] [address] [facility] [id number] [address] [place] [address] Jul, [facility] [address] [facility] [id number] [address] [place] [address] Jun, [facility] [address] [facility] [id number] [address] [place] [address] May, IMMUNIZATIONS No Known Immunizations SOCIAL HISTORY [...]
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
== END 2019-12-28 21:05 | disposition home or self-care (01) ==
LOC: EDUNIT# 20:34 → ER 20:35
DX: R21 Rash and other nonspecific skin eruption (principal); E11.9 Type 2 diabetes mellitus without complications; F32.9 Major depressive disorder, single episode, unspecified; Z79.84 Long term (current) use of oral hypoglycemic drugs; Z95.5 Presence of coronary angioplasty implant and graft; Z82.49 Family history of ischemic heart disease and other diseases of the circulatory system
CPT/HCPCS: 99282